=== PATIENT | male | born 1970 | race Hispanic/Latino ===

== ENCOUNTER 2019-05-17 04:08 | Inpatient (IN) | payer MEDICAID, SELFPAY ==
[2019-05-17] MEDS ORDERED: Propofol 1,000 MG/100 ML VIAL IV ONE (04:20)
[2019-05-17] MEDS ORDERED: Adacel (T-DAP) 0.5 ML SYRINGE ONE (04:28)
[2019-05-17 04:39] LABS: Hemoglobin 13.3 g/dL (14.0-18.0); Mean Corpuscular HGB CONC 33.8 g/dL (32.0-36.0); Mean Corpuscular Volume 94.5 fL (78.0-98.0); Mean Platelet Volume 9.1 fL (7.4-10.4); Platelet Count 255 thou/uL (130-400); RBC Distribution Width 12.3 % (11.5-14.5); Red Blood Cell (RBC) Count 4.16 mill/uL (4.70-6.10); White Blood Cell (WBC) Count 22.9 thou/uL (4.8-10.8)
[2019-05-17 04:44] LABS: INR-International Normal Ratio 1.2; Prothrombin Time 15.1 SEC (12.0-14.7)
[2019-05-17 04:45] LABS: PTT 38.6 SEC (22.9-36.1)
[2019-05-17] MEDS ORDERED: Dextrose 5% in Water 1,000 ML IV PRN (04:46)
[2019-05-17] MEDS ORDERED: Ondansetron PF 4 MG/2 ML Vial IVP PRN (04:46)
[2019-05-17] MEDS ORDERED: Dextrose 50% Abboject 50 ML SYRINGE SLOW IVP PRN (04:46)
[2019-05-17 05:01] LABS: ALT (SGPT) 134 U/L (8-55); AST (SGOT) 139 U/L (5-34); Albumin 3.4 g/dL (3.5-5.0); Alcohol 221 mg/dL (Less than 10); Alkaline Phosphatase 84 U/L (40-110); Anion Gap 15 mmol/L (10-20); BUN (Urea Nitrogen) 10 mg/dL (8.9-20.6); Bilirubin, Total 0.2 mg/dL (0.2-1.2); Calc. Creatinine Clearance 0 mL/min (70-130); Calcium 7.3 mg/dL (7.8-10.44); Carbon Dioxide 19 mmol/L (22-29); Chloride 111 mmol/L (98-107); Estimated GFR-MDRD Greater than 90; Globulin 2.7 g/dL (2.4-3.5); Lipase 158 U/L (8-78); Potassium 3.2 mmol/L (3.5-5.1); Protein, Total 6.1 g/dL (6.0-8.3); Sodium 142 mmol/L (136-145)
[2019-05-17 05:04] LABS: Band 15 % (5-11); Lymphocytes 18 % (21-51); MDiff Complete? YES; Monocytes 4 % (0-10); Myelocyte 1 % (0-0); Neutrophil 57 % (42-75); Platelet Clumps SLIGHT; Platelet Morphology Comment Appears Adequate; Reactive Lymphocytes 5 % (0-10)
[2019-05-17 05:09] LABS: Glucose 190 mg/dL (70-105)
[2019-05-17 05:38] LABS: Bacteria/HPF 1+ HPF (None Seen); Bilirubin Negative (Negative); Blood, Urine 3+ (Negative); Clarity Clear (Clear); Glucose, Urine (Dipstick) Normal (Negative); Leukocyte Negative Leu/uL (Negative); Nitrite Negative (Negative); Protein, Urine (Dipstick) 100 mg/dL (Neg-Trace); Squamous Epithelial None Seen HPF (0-3); Urobilinogen Normal mg/dL (Less than 2)
[2019-05-17 05:43] LABS: Actual Bicarbonate (HCO3a) 15.6 mEq/L (22-28); Analyzer IN Cardio ER; Base Excess (BEa) -11.2 mEq/L (-2.0 to +3.0); CO2 Tension 38.4 mmHg (35.0-45.0); Calcium, Ionized 1.09 mmol/L (1.12-1.30); Carboxyhemoglobin (COHb) 1.6 gm% (0.0-3.0); Hemoglobin (Hb) 13.8 g/dL (14.0-18.0); O2 Tension (PaO2) 80.1 mmHg (80.0-100.0)
[2019-05-17 05:44] LABS: pH, Arterial 7.23 (7.35-7.45)
[2019-05-17 05:45] LABS: Puncture Site RRA
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
[2019-05-17 07:51] LABS: Band 34 % (5-11); Hemoglobin 13.3 g/dL (14.0-18.0); Large Platelets SLIGHT; Lymphocytes 20 % (21-51); MDiff Complete? YES; Mean Corpuscular HGB CONC 34.9 g/dL (32.0-36.0); Mean Corpuscular Hemoglobin 32.7 pg (27.0-31.0); Mean Corpuscular Volume 93.8 fL (78.0-98.0); Mean Platelet Volume 9.8 fL (7.4-10.4); Monocytes 1 % (0-10); Neutrophil 45 % (42-75); Platelet Count 182 thou/uL (130-400); Platelet Morphology Comment Appears Adequate; RBC Distribution Width 12.8 % (11.5-14.5); Red Blood Cell (RBC) Count 4.08 mill/uL (4.70-6.10); White Blood Cell (WBC) Count 18.5 thou/uL (4.8-10.8)
[2019-05-17] MEDS ORDERED: Fentanyl BOLUS 250 ML IVPB PRN (07:54)
[2019-05-17] MEDS ORDERED: Morphine 2 MG/ML SYRINGE SLOW IVP PRN (07:54)
[2019-05-17] MEDS ORDERED: Propofol BOLUS 1,000 MG/100 ML VIAL IV PRN (07:54)
[2019-05-17] MEDS ORDERED: Lorazepam 2 MG/ML VIAL SLOW IVP PRN (07:54)
[2019-05-17 07:57] LABS: Anion Gap 16 mmol/L (10-20); BUN (Urea Nitrogen) 10 mg/dL (8.9-20.6); CK (CPK) 3127 U/L (30-200); Calc. Creatinine Clearance 0 mL/min (70-130); Calcium 7.2 mg/dL (7.8-10.44); Carbon Dioxide 17 mmol/L (22-29); Chloride 115 mmol/L (98-107); Estimated GFR-MDRD Greater than 90; Magnesium 1.7 mg/dL (1.6-2.6); Phosphorus 2.1 mg/dL (2.3-4.7); Potassium 3.6 mmol/L (3.5-5.1); Sodium 144 mmol/L (136-145)
[2019-05-17] MEDS ORDERED: levETIRAcetam In NaCl (Iso-Os) 1,000 MG in Premix Bag 1 BAG IVPB SCH (08:00)
[2019-05-17] MEDS: Sodium Chloride 0.9% 1,000 ML IV SCH ×2 (08:00→22:37)
[2019-05-17 08:01] LABS: Lactic Acid 5.1 mmol/L (0.5-2.2)
[2019-05-17 08:02] LABS: Glucose 163 mg/dL (70-105)
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
[2019-05-17] MEDS: Famotidine/PF 20 mg/2ml Vial SLOW IVP SCH ×2 (09:09→21:25)
[2019-05-17 09:10] LABS: Actual Bicarbonate (HCO3a) 13.9 mEq/L (22-28); Base Excess (BEa) -10.1 mEq/L (-2.0 to +3.0); CO2 Tension 26.4 mmHg (35.0-45.0); Calcium, Ionized 1.09 mmol/L (1.12-1.30); Carboxyhemoglobin (COHb) 1.2 gm% (0.0-3.0); Hemoglobin (Hb) 13.4 g/dL (14.0-18.0); O2 Tension (PaO2) 111.3 mmHg (80.0-100.0); Potassium - ABG Lab 3.43 mmol/L (3.70-5.30); pH, Arterial 7.34 (7.35-7.45)
[2019-05-17 09:11] LABS: Puncture Site RRA
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
[2019-05-17] MEDS ORDERED: Metoprolol Tartrate 5 MG/5 ML VIAL ONE (09:39)
[2019-05-17] MEDS ORDERED: Ondansetron PF 4 MG/2 ML Vial ONE (09:39)
[2019-05-17] MEDS ORDERED: Rocuronium Bromide 10 MG/ML (10ML VIAL) ONE (09:39)
[2019-05-17] MEDS ORDERED: Dexamethasone 20 MG/5 ML VIAL ONE (09:39)
[2019-05-17] MEDS ORDERED: PHENYLEPHRINE-NS 100 MCG/ML 10 ML SYRINGE ONE (09:39)
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
[2019-05-17] MEDS ORDERED: PROPOFOL 20 ML ONE (11:01)
[2019-05-17] MEDS ORDERED: Succinylcholine Chloride 20 MG/ML 10 ml SYRINGE FS ONE (11:37)
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
[2019-05-17] MEDS ORDERED: Iopamidol-370 76% 500 ML 1 ML ONE (11:45)
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
[2019-05-17] MEDS ORDERED: Acetaminophen 650 MG/20.3 ML UDCUP PER TUBE PRN (12:36)
[2019-05-17] MEDS ORDERED: Acetaminophen 650 MG Suppository PR PRN (12:37)
[2019-05-17] MEDS ORDERED: CEFAZOLIN 2 GM in Premix Bag 1 BAG IVPB SCH (13:30)
[2019-05-17] MEDS ORDERED: Calcium Chloride 1 GM/10 ML Abboject SYRINGE IVP SCH (13:30)
[2019-05-17 13:38] LABS: Hemoglobin 13.3 g/dL (14.0-18.0); Mean Corpuscular HGB CONC 35.6 g/dL (32.0-36.0); Mean Corpuscular Hemoglobin 33.1 pg (27.0-31.0); Mean Corpuscular Volume 93.1 fL (78.0-98.0); Mean Platelet Volume 7.3 fL (7.4-10.4); Platelet Count 250 thou/uL (130-400); RBC Distribution Width 12.8 % (11.5-14.5); White Blood Cell (WBC) Count 15.6 thou/uL (4.8-10.8)
[2019-05-17 13:56] LABS: Band 42 % (5-11); Lymphocytes 9 % (21-51); MDiff Complete? YES; Monocytes 7 % (0-10); Neutrophil 42 % (42-75); Platelet Morphology Comment Appears Adequate; RBC Morphology Normal; Vacuoles SLIGHT
[2019-05-17 14:01] LABS: Anion Gap 18 mmol/L (10-20); BUN (Urea Nitrogen) 12 mg/dL (8.9-20.6); Calc. Creatinine Clearance 125 mL/min (70-130); Calcium 7.6 mg/dL (7.8-10.44); Carbon Dioxide 16 mmol/L (22-29); Chloride 115 mmol/L (98-107); Estimated GFR-MDRD Greater than 90; Glucose 131 mg/dL (70-105); Sodium 145 mmol/L (136-145)
[2019-05-17 14:06] LABS: Phosphorus 2.6 mg/dL (2.3-4.7)
[2019-05-17] MEDS ORDERED: Lactated Ringer's 1,000 ML IV SCH ×2 (14:15→19:30)
[2019-05-17] MEDS ORDERED: Magnesium 2 GM/50 ML 2 GM in Premix Bag 1 BAG IVPB SCH (14:15)
[2019-05-17 14:31] LABS: CK (CPK) 9682 U/L (30-200)
[2019-05-17] MEDS ORDERED: Phenylephrine 10 MG/ML VIAL ONE (14:48)
[2019-05-17 15:45] LABS: Amphetamine Not Detected (NotDetected); Barbiturates Screen Not Detected (NotDetected); Benzodiazepine Screen Not Detected (NotDetected); Cocaine Metabolite Screen Not Detected (NotDetected); Medtox Control Line Valid? VALID (VALID); Medtox Reader # READER 4; Methadone Not Detected (NotDetected); Methamphetamine Not Detected (NotDetected); Opiate Screen Not Detected (NotDetected); Oxycodone Screen Not Detected (NotDetected); Phencyclidine (PCP) Not Detected (NotDetected); THC/Cannabinoid Screen Not Detected (NotDetected); Tricyclic Screen Not Detected (NotDetected)
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
[2019-05-17] MEDS ORDERED: Rocuronium Bromide 50 MG/5 ML VIAL ONE ×2 (16:57→18:43)
[2019-05-17] MEDS ORDERED: HYDROmorphone 2 MG/ML VIAL ONE (18:39)
[2019-05-17] MEDS ORDERED: CEFAZOLIN 1 GM VIAL ONE (18:42)
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
[2019-05-17] MEDS: Lactated Ringer's 1,000 ML IV SCH (20:35)
[2019-05-17 21:11] LABS: Mean Corpuscular Volume 95.1 fL (78.0-98.0)
[2019-05-17 21:19] LABS: Band 40 % (5-11); Hemoglobin 9.3 g/dL (14.0-18.0); Lymphocytes 7 % (21-51); MDiff Complete? YES; Mean Corpuscular HGB CONC 33.8 g/dL (32.0-36.0); Mean Corpuscular Hemoglobin 32.1 pg (27.0-31.0); Monocytes 5 % (0-10); Neutrophil 48 % (42-75); Platelet Count 184 thou/uL (130-400); RBC Distribution Width 12.7 % (11.5-14.5); White Blood Cell (WBC) Count 13.4 thou/uL (4.8-10.8)
[2019-05-17 21:22] LABS: Lactic Acid 3.1 mmol/L (0.5-2.2)
--- NOTE | 2019-05-17 21:56 | RAD ---
Exam: Chest one view HISTORY:Evaluate endotracheal tube Comparison: 05/17/2019 FINDINGS: Lines and tubes: Endotracheal tube at the level of the clavicle. Nasogastric tube terminates in the l eft upper quadrant. Stable left-sided subclavian vascular catheter. Cardiac silhouette: Normal Aorta: Unremarkable Pulmonary vessels: Normal Costophrenic angles: Clear LUNGS: Persistent patchy opacities in the lung parenchyma. Possible focal infiltrate in the right low er lobe. Pneumothorax: None Osseous abnormalities: None IMPRESSION: 1. Possible focal infiltrate in the right lower lobe. 2. Endotracheal tube at the level the clavicles.
[2019-05-17 21:59] LABS: Chloride 115 mmol/L (98-107); Potassium 5.1 mmol/L (3.5-5.1)
[2019-05-17 22:00] LABS: Sodium 146 mmol/L (136-145)
[2019-05-17 22:01] LABS: Calcium 6.8 mg/dL (7.8-10.44); Glucose 157 mg/dL (70-105)
[2019-05-17 22:02] LABS: Anion Gap 15 mmol/L (10-20); Carbon Dioxide 21 mmol/L (22-29)
[2019-05-17 22:04] LABS: Calc. Creatinine Clearance 98 mL/min (70-130); Estimated GFR-MDRD 77
[2019-05-17 22:05] LABS: BUN (Urea Nitrogen) 16 mg/dL (8.9-20.6)
[2019-05-17 22:06] LABS: Magnesium 1.6 mg/dL (1.6-2.6)
[2019-05-17 22:07] LABS: CK (CPK) 9365 U/L (30-200); Phosphorus 4.9 mg/dL (2.3-4.7)
[2019-05-17] MEDS: Ventilator Sedation Protocol 1 EACH FS SCH (22:44)
[2019-05-18] MEDS: Insulin Regular 300 UNITS/3 ML VIAL SC PRN ×3 (00:47→23:07)
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
[2019-05-18] MEDS: CEFAZOLIN 2 GM in Premix Bag 1 BAG IVPB SCH ×4 (01:30→21:11)
[2019-05-18] MEDS: Lactated Ringer's 1,000 ML IV SCH ×4 (01:33→19:29)
[2019-05-18 04:47] LABS: Lactic Acid 4.3 mmol/L (0.5-2.2)
[2019-05-18 04:58] LABS: Anion Gap 13 mmol/L (10-20); BUN (Urea Nitrogen) 14 mg/dL (8.9-20.6); Calc. Creatinine Clearance 117 mL/min (70-130); Calcium 7.9 mg/dL (7.8-10.44); Carbon Dioxide 21 mmol/L (22-29); Chloride 115 mmol/L (98-107); Estimated GFR-MDRD Greater than 90; Glucose 177 mg/dL (70-105); Magnesium 2.2 mg/dL (1.6-2.6); Phosphorus 1.9 mg/dL (2.3-4.7); Sodium 145 mmol/L (136-145)
[2019-05-18 05:17] LABS: CK (CPK) 8961 U/L (30-200)
[2019-05-18 05:21] LABS: Band 37 % (5-11); Hemoglobin 8.9 g/dL (14.0-18.0); Lymphocytes 7 % (21-51); MDiff Complete? YES; Mean Corpuscular HGB CONC 34.1 g/dL (32.0-36.0); Mean Corpuscular Hemoglobin 32.4 pg (27.0-31.0); Mean Corpuscular Volume 94.8 fL (78.0-98.0); Mean Platelet Volume 8.4 fL (7.4-10.4); Monocytes 7 % (0-10); Neutrophil 49 % (42-75); Platelet Count 148 thou/uL (130-400); Platelet Morphology Comment Appears Adequate; RBC Distribution Width 12.8 % (11.5-14.5); Red Blood Cell (RBC) Count 2.75 mill/uL (4.70-6.10)
[2019-05-18] MEDS: hydrALAZINE 20 MG/ML VIAL SLOW IVP PRN (06:37)
[2019-05-18] MEDS ORDERED: Sodium Phosphate 30 MMOL in Sodium Chloride 0.9% 250 ML 250 ML IVPB SCH (07:00)
[2019-05-18] MEDS ORDERED: Rocuronium Bromide 50 MG/5 ML VIAL ONE ×2 (07:30→08:25)
--- NOTE | 2019-05-18 07:50 | RAD ---
PORTABLE SEMIUPRIGHT FRONTAL RADIOGRAPH CHEST: 05/18/2019 HISTORY: Intubated patient. COMPARISON: 05/17/2019 FINDINGS: Stable endotracheal tube, nasogastric tube and left sided vascular catheter. Hazy nonspecific bibasil ar air space disease is noted, slightly worsened. IMPRESSION: 1. Mild interval worsening of hazy nonspecific bibasilar air space disease. 2. Stable lines and tubes. POS: [facility]
[2019-05-18] MEDS ORDERED: Sodium Chloride 0.9% 20 ML ONE (08:23)
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
--- NOTE | 2019-05-18 09:19 | PRG ---
DATE OF SERVICE: 05/18/2019 Mr. Lu underwent a head CT this morning while his pupils remained symmetric and reactive and he continued to localize in the right side. His head CT compared to the head CT and brain MRI yesterday demonstrated fulminant edematous and hemorrhagic expansion of his right temporal lobe and even extension into the inferior middle right frontal gyri with associated subdural hematoma and traumatic subarachnoid hemorrhage. There was 11 mm [id number] midline shift. As such, I opted to be aggressive and recommended a right-sided hemicraniectomy and temporal lobectomy and we proceeded emergently for this. Job ID: [id number]
[2019-05-18] MEDS ORDERED: CEFAZOLIN 1 GM VIAL ONE (09:27)
[2019-05-18] MEDS ORDERED: Rocuronium Bromide 10 MG/ML (10ML VIAL) ONE (09:49)
[2019-05-18] MEDS ORDERED: Vecuronium 10 MG VIAL ONE (09:49)
[2019-05-18] MEDS ORDERED: Esmolol 100 MG/10 ML VIAL ONE (09:49)
[2019-05-18] MEDS ORDERED: Fentanyl 100 MCG/2 ML VIAL ONE ×2 (09:49→15:54)
[2019-05-18] MEDS ORDERED: PROPOFOL 200 MG/20 ML VIAL ONE (09:49)
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
--- NOTE | 2019-05-18 11:07 | RAD ---
EXAM: 2 views of the left forearm HISTORY: Fractures of the left mid radius and ulna COMPARISON: 05/17/2019 FINDINGS: Limited intraoperative fluoroscopic views show the patient is status post plate and screw f ixation of the fractures of the distal third of the diaphyses of the radius and ulna. Better alignment of fractures is seen. No perihardware lucency is present. IMPRESSION: Status post ORIF of radius and ulna fractures.
[2019-05-18] MEDS: Famotidine/PF 20 mg/2ml Vial SLOW IVP SCH ×2 (12:18→20:26)
[2019-05-18] MEDS: Labetalol HCl 100 MG/20 ML VIAL SLOW IVP PRN ×3 (12:27→19:51)
[2019-05-18] MEDS: Ventilator Sedation Protocol 1 EACH FS SCH (13:23)
[2019-05-18 14:09] LABS: Actual Bicarbonate (HCO3a) 20.9 mEq/L (22-28); Base Excess (BEa) -3.1 mEq/L (-2.0 to +3.0); CO2 Tension 33.9 mmHg (35.0-45.0); Calcium, Ionized 1.04 mmol/L (1.12-1.30); Carboxyhemoglobin (COHb) 0.6 gm% (0.0-3.0); Hemoglobin (Hb) 10.9 g/dL (14.0-18.0); Potassium - ABG Lab 4.33 mmol/L (3.70-5.30); pH, Arterial 7.41 (7.35-7.45)
[2019-05-18 14:10] LABS: ALV-art Gradient 208.125 (0-20); Puncture Site ALINE
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
[2019-05-18 14:40] LABS: Anion Gap 13 mmol/L (10-20); BUN (Urea Nitrogen) 14 mg/dL (8.9-20.6); Calc. Creatinine Clearance 129 mL/min (70-130); Calcium 7.7 mg/dL (7.8-10.44); Carbon Dioxide 23 mmol/L (22-29); Chloride 118 mmol/L (98-107); Estimated GFR-MDRD Greater than 90; Glucose 179 mg/dL (70-105); Potassium 4.5 mmol/L (3.5-5.1); Sodium 149 mmol/L (136-145)
[2019-05-18 15:17] LABS: Actual Bicarbonate (HCO3a) 21.7 mEq/L (22-28); Base Excess (BEa) -1.2 mEq/L (-2.0 to +3.0); CO2 Tension 30.3 mmHg (35.0-45.0); Calcium, Ionized 1.04 mmol/L (1.12-1.30); Carboxyhemoglobin (COHb) 0.6 gm% (0.0-3.0); Hemoglobin (Hb) 10.9 g/dL (14.0-18.0); Potassium - ABG Lab 4.16 mmol/L (3.70-5.30); pH, Arterial 7.47 (7.35-7.45)
[2019-05-18 15:18] LABS: Puncture Site ALINE
[2019-05-18 15:19] LABS: ALV-art Gradient 199.625 (0-20)
[2019-05-18] MEDS ORDERED: Fentanyl 100 MCG/2 ML VIAL SLOW IVP SCH (15:45)
[2019-05-18] MEDS ORDERED: Albumin 5% 500 ML ONE (16:01)
[2019-05-18] MEDS ORDERED: Calcium Chloride 1 GM/10 ML Abboject SYRINGE IVP SCH (16:30)
[2019-05-18] MEDS: fentaNYL Citrate/PF 2,000 MCG in Sodium Chloride 0.9% 60 ML IV SCH (17:02)
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
[2019-05-18] MEDS: Propofol 1,000 MG/100 ML VIAL IV PRN (20:18)
[2019-05-18 22:11] LABS: Hemoglobin 8.2 g/dL (14.0-18.0); Mean Corpuscular HGB CONC 35.2 g/dL (32.0-36.0); Mean Corpuscular Hemoglobin 32.4 pg (27.0-31.0); Mean Corpuscular Volume 91.9 fL (78.0-98.0); RBC Distribution Width 14.4 % (11.5-14.5); Red Blood Cell (RBC) Count 2.54 mill/uL (4.70-6.10); White Blood Cell (WBC) Count 8.4 thou/uL (4.8-10.8)
[2019-05-18 22:23] LABS: #Lymphocytes 0.9 thou/uL (1.20-3.40); #Monocytes 0.8 thou/uL (0.11-0.59); #Neutrophils 6.8 thou/uL (1.40-6.50); %Lymphocytes 10.4 % (21.0-51.0); %Monocytes 9.1 % (0.0-10.0); %Neutrophils 80.5 % (42.0-75.0); Mean Platelet Volume 7.6 fL (7.4-10.4); Platelet Count 119 thou/uL (130-400)
[2019-05-18 22:24] LABS: Platelet Morphology Comment Appears Decreased
[2019-05-18 22:35] LABS: Anion Gap 13 mmol/L (10-20); BUN (Urea Nitrogen) 14 mg/dL (8.9-20.6); Calc. Creatinine Clearance 125 mL/min (70-130); Calcium 8.5 mg/dL (7.8-10.44); Carbon Dioxide 24 mmol/L (22-29); Chloride 120 mmol/L (98-107); Estimated GFR-MDRD Greater than 90; Glucose 163 mg/dL (70-105); Magnesium 2.1 mg/dL (1.6-2.6); Phosphorus 2.4 mg/dL (2.3-4.7); Potassium 3.9 mmol/L (3.5-5.1); Sodium 153 mmol/L (136-145)
[2019-05-19] MEDS: Lactated Ringer's 1,000 ML IV SCH ×2 (03:50→17:39)
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
[2019-05-19] MEDS: CEFAZOLIN 2 GM in Premix Bag 1 BAG IVPB SCH ×3 (06:05→21:07)
[2019-05-19 06:44] LABS: #Lymphocytes 1.3 thou/uL (1.20-3.40); %Lymphocytes 13.6 % (21.0-51.0); %Monocytes 11.1 % (0.0-10.0); %Neutrophils 75.2 % (42.0-75.0); Mean Corpuscular HGB CONC 35.2 g/dL (32.0-36.0); Mean Corpuscular Hemoglobin 32.5 pg (27.0-31.0); Mean Corpuscular Volume 92.4 fL (78.0-98.0); Mean Platelet Volume 7.8 fL (7.4-10.4); Platelet Count 116 thou/uL (130-400); RBC Distribution Width 14.4 % (11.5-14.5); Red Blood Cell (RBC) Count 2.46 mill/uL (4.70-6.10); White Blood Cell (WBC) Count 9.3 thou/uL (4.8-10.8)
[2019-05-19 07:04] LABS: Anion Gap 6 mmol/L (10-20); BUN (Urea Nitrogen) 12 mg/dL (8.9-20.6); CK (CPK) 3868 U/L (30-200); Calc. Creatinine Clearance 137 mL/min (70-130); Calcium 8.3 mg/dL (7.8-10.44); Carbon Dioxide 28 mmol/L (22-29); Chloride 121 mmol/L (98-107); Estimated GFR-MDRD Greater than 90; Glucose 158 mg/dL (70-105); Magnesium 2.2 mg/dL (1.6-2.6); Phosphorus 1.6 mg/dL (2.3-4.7); Sodium 151 mmol/L (136-145)
[2019-05-19] MEDS: Ventilator Sedation Protocol 1 EACH FS SCH (07:16)
--- NOTE | 2019-05-19 07:37 | CT ---
CT OF THE BRAIN WITHOUT CONTRAST: Date: 05/19/2019 COMPARISON: 05/18/2019. HISTORY: Status post right hemicraniectomy. TECHNIQUE: Multiple contiguous axial images were obtained in a CT of the brain without contrast. FINDINGS: Postsurgical changes are seen along the right parietal calvarium. The bone has been removed with a cr anioplasty flap covering the open calvarium. There is a contusion in the right parietal and temporal lobe, and a small amount of pneumocephalus. There is less midline shift than the prior examination. T here is a stable small amount of blood in the dependent aspect of the lateral ventricles. No downward herniation is seen. There may be a small amount of blood in the fourth ventricle. IMPRESSION: Postsurgical changes of the right calvarium with less midline shift. POS: C
[2019-05-19 08:15] LABS: Actual Bicarbonate (HCO3a) 25.9 mEq/L (22-28); Base Excess (BEa) 1.5 mEq/L (-2.0 to +3.0); CO2 Tension 39.9 mmHg (35.0-45.0); Calcium, Ionized 1.12 mmol/L (1.12-1.30); Carboxyhemoglobin (COHb) 1.3 gm% (0.0-3.0); Hemoglobin (Hb) 7.7 g/dL (14.0-18.0); O2 Tension (PaO2) 130.6 mmHg (80.0-100.0); Potassium - ABG Lab 3.81 mmol/L (3.70-5.30); pH, Arterial 7.43 (7.35-7.45)
[2019-05-19 08:19] LABS: ALV-art Gradient 104.725 (0-20); Puncture Site ALINE
[2019-05-19] MEDS ORDERED: Sodium Phosphate 30 MMOL in Sodium Chloride 0.9% 250 ML 250 ML IVPB SCH (08:30)
--- NOTE | 2019-05-19 08:59 | PRG ---
DATE OF SERVICE: 05/19/2019 This is Nba Mckeon PA-C dictating a report for Avery Russo MD. Mr. Lu is postoperative day #1, having undergone right-sided decompressive hemicraniectomy for right frontotemporal intraparenchymal hemorrhage with cerebral edema. Review of patient's head CT from today compared to yesterday shows significant improvement in midline shift and significant decrease in effacement of the brain on the right ventricle. He does have improvement in his cerebral edema with stable findings of right frontotemporal hemorrhage. The patient overnight was sedated given that he had some tachycardia and tachypnea postoperatively. Per nursing, he is sedated right now and does not appear to be moving the extremities. However, according to our nursing staff, the patient has been attempting to localize to the ET tube with the right arm. He has had a flicker of movement in the right toes, but no movement on the left. His pupils are roughly 2 mm bilaterally, equal and sluggishly reactive. At this point, blood pressure control will be paramount for the patient. Ideally we would like his systolic blood pressure to be less than 150. We appreciate our Trauma colleagues managing the patient's medical needs and we will continue to follow the patient. Please call with any changes in patient's neurologic status. I should note that the patient's serum osmolality was 310. His sodium now is up to 153, as he was given mannitol preoperatively yesterday. We will continue to monitor this. Please call with any changes in patient's neurologic status. Job ID: [id number]
[2019-05-19] MEDS: Famotidine/PF 20 mg/2ml Vial SLOW IVP SCH ×2 (09:17→20:07)
[2019-05-19] MEDS: Acetaminophen 650 MG/20.3 ML UDCUP PER TUBE SCH ×4 (09:55→20:07)
[2019-05-19] MEDS: Sodium Chloride 0.45% 1,000 ML IV SCH (10:25)
[2019-05-19] MEDS ORDERED: Potassium Phosphate 15 MMOL in Sodium Chloride 0.9% 250 ML 250 ML IVPB SCH ×2 (10:30→22:30)
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
[2019-05-19] MEDS: fentaNYL Citrate/PF 2,000 MCG in Sodium Chloride 0.9% 60 ML IV SCH (12:39)
[2019-05-19 13:08] LABS: Anion Gap 10 mmol/L (10-20); BUN (Urea Nitrogen) 12 mg/dL (8.9-20.6); Calc. Creatinine Clearance 150 mL/min (70-130); Calcium 8.6 mg/dL (7.8-10.44); Carbon Dioxide 26 mmol/L (22-29); Chloride 122 mmol/L (98-107); Estimated GFR-MDRD Greater than 90; Glucose 139 mg/dL (70-105); Sodium 154 mmol/L (136-145)
[2019-05-19] MEDS: Insulin Regular 300 UNITS/3 ML VIAL SC PRN ×2 (20:16→23:51)
[2019-05-19 21:57] LABS: Anion Gap 9 mmol/L (10-20); BUN (Urea Nitrogen) 13 mg/dL (8.9-20.6); Calc. Creatinine Clearance 139 mL/min (70-130); Calcium 8.1 mg/dL (7.8-10.44); Carbon Dioxide 29 mmol/L (22-29); Chloride 123 mmol/L (98-107); Estimated GFR-MDRD Greater than 90; Glucose 181 mg/dL (70-105); Magnesium 2.1 mg/dL (1.6-2.6); Potassium 3.5 mmol/L (3.5-5.1); Sodium 157 mmol/L (136-145)
[2019-05-19 22:06] LABS: Phosphorus 1.6 mg/dL (2.3-4.7)
[2019-05-19 23:21] LABS: Bacteria/HPF None Seen HPF (None Seen); Bilirubin Negative (Negative); Blood, Urine 2+ (Negative); Clarity Clear (Clear); Glucose, Urine (Dipstick) Normal (Negative); Leukocyte Negative Leu/uL (Negative); Nitrite Negative (Negative); Protein, Urine (Dipstick) 30 mg/dL (Neg-Trace); RBC/HPF 0-3 HPF (0-3); Squamous Epithelial 0-3 HPF (0-3); Urobilinogen Normal mg/dL (Less than 2); WBC/HPF 0-3 HPF (0-3)
[2019-05-19] MEDS: cefTRIAXone\\ROCEPHIN 2 GM in Sodium Chloride 0.9% 100 ML IVPB SCH (23:34)
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
[2019-05-20] MEDS: Acetaminophen 650 MG/20.3 ML UDCUP PER TUBE SCH ×6 (01:25→20:19)
[2019-05-20] MEDS: Sodium Chloride 0.45% 1,000 ML IV SCH ×2 (01:26→17:11)
[2019-05-20] MEDS: Insulin Regular 300 UNITS/3 ML VIAL SC PRN ×3 (04:20→23:51)
[2019-05-20] MEDS: CEFAZOLIN 2 GM in Premix Bag 1 BAG IVPB SCH ×2 (05:57→13:51)
[2019-05-20] MEDS: Ventilator Sedation Protocol 1 EACH FS SCH (07:13)
[2019-05-20 07:19] LABS: Hemoglobin 7.2 g/dL (14.0-18.0); Mean Corpuscular HGB CONC 33.7 g/dL (32.0-36.0); Mean Corpuscular Hemoglobin 31.9 pg (27.0-31.0); Mean Corpuscular Volume 94.7 fL (78.0-98.0); Mean Platelet Volume 7.5 fL (7.4-10.4); Platelet Count 151 thou/uL (130-400); RBC Distribution Width 14.2 % (11.5-14.5); Red Blood Cell (RBC) Count 2.26 mill/uL (4.70-6.10); White Blood Cell (WBC) Count 11.1 thou/uL (4.8-10.8)
[2019-05-20 07:42] LABS: Anion Gap 10 mmol/L (10-20); BUN (Urea Nitrogen) 14 mg/dL (8.9-20.6); CK (CPK) 2848 U/L (30-200); Calc. Creatinine Clearance 145 mL/min (70-130); Carbon Dioxide 29 mmol/L (22-29); Chloride 123 mmol/L (98-107); Estimated GFR-MDRD Greater than 90; Glucose 184 mg/dL (70-105); Magnesium 2.1 mg/dL (1.6-2.6); Phosphorus 2.1 mg/dL (2.3-4.7); Potassium 3.8 mmol/L (3.5-5.1); Sodium 158 mmol/L (136-145)
[2019-05-20 07:57] LABS: Band 25 % (5-11); Lymphocytes 9 % (21-51); MDiff Complete? YES; Neutrophil 66 % (42-75); Nucleated RBC 1 % (0); Platelet Morphology Comment Appears Adequate; Polychromasia SLIGHT = 2-3 cells (100X) (0-2/hpf)
[2019-05-20] MEDS: Polyethylene Glycol 3350 17 GM Packet PO SCH (09:05)
[2019-05-20] MEDS: Famotidine/PF 20 mg/2ml Vial SLOW IVP SCH ×2 (09:05→21:37)
[2019-05-20] MEDS: Senokot S 8.6-50 MG TAB PO SCH ×2 (09:05→21:37)
--- NOTE | 2019-05-20 09:26 | PRG ---
DATE OF SERVICE: 05/20/2019 This is Nba Mckeon PA-C dictating a report for Avery Russo MD. POSTOPERATIVE RECHECK: Mr. Lu is postoperative day #2 having undergone right decompressive hemicraniectomy for increased ICP and increased cerebral edema secondary to right frontotemporal intraparenchymal contusion. The patient remains on Keppra. He remains on his ventilator. His pupils are equal, round, and sluggishly reactive at this point. The patient does have spontaneous movement of the right upper extremity, and per nursing staff, will move the right lower extremity to noxious stimulus. There are no movements in the left lower extremity or the right upper extremity. His head wrap was re-dressed since it was slightly tight. ALLISON drain has put out 20 mL overnight. We will keep this in at least 1 more day. The patient's serum osmolality is 326, and his sodium is 157. He has been placed on half-normal saline, although review of his most recent sodium continues to climb at 158. Our trauma colleagues are helping us to manage this. He remains on cefepime and Ancef. His blood pressure has remained stable. Temperature right now is 100.5. We will continue the ALLISON drain and antibiotics. Given that the patient has a stable neurologic exam, we will hold on any type of imaging, but should he change in his neurologic status, we will re-evaluate with a repeat head CT. Please call with any changes in the patient's neurologic status. Job ID: [id number]
[2019-05-20] MEDS ORDERED: Potassium Phosphate 30 MMOL in Sodium Chloride 0.9% 250 ML 250 ML IVPB SCH (09:30)
[2019-05-20] MEDS: fentaNYL Citrate/PF 2,000 MCG in Sodium Chloride 0.9% 60 ML IV SCH (12:01)
[2019-05-20] MEDS: cefTRIAXone\\ROCEPHIN 2 GM in Sodium Chloride 0.9% 100 ML IVPB SCH (12:29)
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
--- NOTE | 2019-05-20 15:13 | RAD ---
RIGHT TIBIA AND FIBULA 2 VIEWS: HISTORY: ORIF right tibia. Six portable fluoroscopic spot images are presented for interpretation. These demonstrate intramedul mayuri ivy placement stabilizing a very comminuted tibial shaft fracture. In addition, there is a disp laced comminuted mid fibular shaft fracture. IMPRESSION: Intramedullary ivy stabilizing a very comminuted tibial shaft fracture with stabilization. Comminute d mid fibula shaft fracture. POS: LIBERTAD
[2019-05-20 16:44] LABS: Base Excess (BEa) 2.4 mEq/L (-2.0 to +3.0); CO2 Tension 35.7 mmHg (35.0-45.0); Calcium, Ionized 1.08 mmol/L (1.12-1.30); Carboxyhemoglobin (COHb) 0.2 gm% (0.0-3.0); Hemoglobin (Hb) 7.4 g/dL (14.0-18.0); O2 Tension (PaO2) 111.8 mmHg (80.0-100.0); Potassium - ABG Lab 3.72 mmol/L (3.70-5.30); pH, Arterial 7.48 (7.35-7.45)
[2019-05-20 16:46] LABS: ALV-art Gradient 128.775 (0-20); Puncture Site ALINE
[2019-05-21] MEDS: Acetaminophen 650 MG/20.3 ML UDCUP PER TUBE SCH ×6 (00:26→20:43)
[2019-05-21] MEDS: cefTRIAXone\\ROCEPHIN 2 GM in Sodium Chloride 0.9% 100 ML IVPB SCH (00:26)
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
[2019-05-21 04:31] LABS: #Lymphocytes 1.8 thou/uL (1.20-3.40); #Neutrophils 9.7 thou/uL (1.40-6.50); %Basophils 0.2 % (0.0-1.0); %Eosinophils 0.2 % (0.0-10.0); %Lymphocytes 14.3 % (21.0-51.0); %Monocytes 7.6 % (0.0-10.0); %Neutrophils 77.7 % (42.0-75.0); Hemoglobin 7.3 g/dL (14.0-18.0); Mean Corpuscular HGB CONC 33.5 g/dL (32.0-36.0); Mean Corpuscular Volume 95.5 fL (78.0-98.0); Mean Platelet Volume 8.2 fL (7.4-10.4); Platelet Count 179 thou/uL (130-400); RBC Distribution Width 14.3 % (11.5-14.5); Red Blood Cell (RBC) Count 2.27 mill/uL (4.70-6.10); White Blood Cell (WBC) Count 12.5 thou/uL (4.8-10.8)
[2019-05-21 04:52] LABS: Anion Gap 10 mmol/L (10-20); BUN (Urea Nitrogen) 17 mg/dL (8.9-20.6); Calc. Creatinine Clearance 145 mL/min (70-130); Calcium 8.3 mg/dL (7.8-10.44); Carbon Dioxide 30 mmol/L (22-29); Chloride 123 mmol/L (98-107); Estimated GFR-MDRD Greater than 90; Glucose 159 mg/dL (70-105); Magnesium 2.4 mg/dL (1.6-2.6); Potassium 3.7 mmol/L (3.5-5.1); Sodium 159 mmol/L (136-145)
[2019-05-21] MEDS: Insulin Regular 300 UNITS/3 ML VIAL SC PRN ×3 (06:16→17:53)
[2019-05-21 07:29] LABS: Actual Bicarbonate (HCO3a) 28.1 mEq/L (22-28); Base Excess (BEa) 4.4 mEq/L (-2.0 to +3.0); CO2 Tension 37.5 mmHg (35.0-45.0); Calcium, Ionized 1.11 mmol/L (1.12-1.30); Carboxyhemoglobin (COHb) 1.3 gm% (0.0-3.0); Hemoglobin (Hb) 7.4 g/dL (14.0-18.0); O2 Tension (PaO2) 129.2 mmHg (80.0-100.0); Potassium - ABG Lab 3.68 mmol/L (3.70-5.30); pH, Arterial 7.49 (7.35-7.45)
[2019-05-21 07:41] LABS: ALV-art Gradient 109.125 (0-20); Puncture Site ALINE
[2019-05-21] MEDS: Ventilator Sedation Protocol 1 EACH FS SCH (07:59)
[2019-05-21] MEDS ORDERED: Piperacillin/Tazobactam 4.5 GM in Sodium Chloride 0.9% 100 ML IVPB SCH (09:00)
[2019-05-21] MEDS: Piperacillin/Tazobactam 4.5 GM in Dextrose 5% in Water 100 ML IVPB SCH ×4 (09:30→20:43)
[2019-05-21] MEDS: Polyethylene Glycol 3350 17 GM Packet PO SCH (09:31)
[2019-05-21] MEDS: Famotidine/PF 20 mg/2ml Vial SLOW IVP SCH ×2 (09:31→20:44)
[2019-05-21] MEDS: Senokot S 8.6-50 MG TAB PO SCH ×2 (09:33→20:43)
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
[2019-05-21] MEDS ORDERED: Ibuprofen 600 MG TAB PO PRN (11:48)
[2019-05-21] MEDS: Ibuprofen 100 MG/5 ML UDCUP PO PRN ×2 (12:27→22:57)
[2019-05-21] MEDS: fentaNYL Citrate/PF 2,000 MCG in Sodium Chloride 0.9% 60 ML IV SCH (12:43)
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
[2019-05-21] MEDS ORDERED: Lidocaine 1% (PF) 30 ML VIAL ONE (14:56)
[2019-05-21] MEDS ORDERED: Lidocaine 1% (PF) 30 ML VIAL SC SCH (15:00)
[2019-05-21] MEDS: Sodium Chloride 0.45% 1,000 ML IV SCH (17:02)
--- NOTE | 2019-05-21 17:39 | PRG ---
DATE OF SERVICE: 05/21/2019 Mr. Lu is now postoperative day #3 from right-sided frontotemporal craniectomy and temporal lobectomy. We will get a head CT in the morning, although he neurologically continues to localize briskly in the right side with minimal movement on the left side. His pupils are symmetric, round, and reactive. He has had about 200 mL of more serous than serosanguineous output out of his ALLISON drain. We will likely pull this in the morning. He is hypernatremic at 159 while his urine output does not speak to diabetes insipidus. He certainly is hypernatremic and our Trauma colleagues are managing this with DDAVP and hypotonic fluids. He also has a significant aspiration pneumonia. We will continue to follow along. Job ID: [id number]
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
[2019-05-22] MEDS: Acetaminophen 650 MG/20.3 ML UDCUP PER TUBE SCH ×7 (00:45→23:37)
[2019-05-22] MEDS: Insulin Regular 300 UNITS/3 ML VIAL SC PRN ×3 (00:46→22:28)
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
[2019-05-22] MEDS: Piperacillin/Tazobactam 4.5 GM in Dextrose 5% in Water 100 ML IVPB SCH ×4 (03:18→20:44)
[2019-05-22 05:48] LABS: Anion Gap 10 mmol/L (10-20); BUN (Urea Nitrogen) 21 mg/dL (8.9-20.6); Calc. Creatinine Clearance 137 mL/min (70-130); Calcium 8.2 mg/dL (7.8-10.44); Carbon Dioxide 28 mmol/L (22-29); Chloride 123 mmol/L (98-107); Estimated GFR-MDRD Greater than 90; Glucose 187 mg/dL (70-105); Magnesium 2.4 mg/dL (1.6-2.6); Potassium 3.7 mmol/L (3.5-5.1); Sodium 157 mmol/L (136-145)
[2019-05-22 06:11] LABS: Hemoglobin 7.1 g/dL (14.0-18.0); Mean Corpuscular HGB CONC 33.3 g/dL (32.0-36.0); Mean Corpuscular Volume 96.1 fL (78.0-98.0); Mean Platelet Volume 7.5 fL (7.4-10.4); Platelet Count 241 thou/uL (130-400); RBC Distribution Width 14.2 % (11.5-14.5); Red Blood Cell (RBC) Count 2.22 mill/uL (4.70-6.10); White Blood Cell (WBC) Count 13.9 thou/uL (4.8-10.8)
[2019-05-22 06:46] LABS: Band 21 % (5-11); Lymphocytes 16 % (21-51); MDiff Complete? YES; Monocytes 4 % (0-10); Neutrophil 59 % (42-75); Nucleated RBC 3 % (0)
[2019-05-22 07:29] LABS: Actual Bicarbonate (HCO3a) 25.9 mEq/L (22-28); Base Excess (BEa) 2.1 mEq/L (-2.0 to +3.0); CO2 Tension 36.3 mmHg (35.0-45.0); Calcium, Ionized 1.12 mmol/L (1.12-1.30); Carboxyhemoglobin (COHb) 2.3 gm% (0.0-3.0); Hemoglobin (Hb) 7.1 g/dL (14.0-18.0); O2 Tension (PaO2) 96.8 mmHg (80.0-100.0); Potassium - ABG Lab 3.71 mmol/L (3.70-5.30); pH, Arterial 7.47 (7.35-7.45)
[2019-05-22 07:30] LABS: ALV-art Gradient 71.725 (0-20); Puncture Site RRA
[2019-05-22] MEDS: Ventilator Sedation Protocol 1 EACH FS SCH (07:36)
--- NOTE | 2019-05-22 07:48 | RAD ---
Portable frontal chest radiograph: 05/22/2019 COMPARISON: 05/21/2019 HISTORY: Respiratory failure FINDINGS: Stable endotracheal tube, nasogastric tube, left-sided vascular catheter, and left-sided ch est tube in. Right lung appears clear. There is patchy opacity in the left lung base with medial left basilar consolidation. Aeration in the left base has improved since the prior examination. IMPRESSION: Lines and tubes as detailed above. Improving aeration within the left lung with persisten t interstitial and alveolar opacity within the left base.
--- NOTE | 2019-05-22 07:56 | CT ---
CT BRAIN WITHOUT CONTRAST: Date: 05/22/2019 INDICATION: 49-year-old male status post right hemicraniectomy. COMPARISON: 05/19/2019 at 0545 hours and at 0505 hours. FINDINGS: The prominent hemorrhagic contusions involving the right frontal and right temporal lobe are relative ly stable in size when accounting for slight differences in slice angulation. Right frontal, parietal , and temporal craniectomy with overlying cranial flap is stable appearing. Surgical drain involving the right frontoparietal scalp is similar appearing. Herniated brain contents from the craniotomy sit e appear slightly more accentuated than on the prior examination. Scattered areas of intraparenchymal contusion involving the right parietal, lateral right frontal, and inferior aspect of both frontal l obes are similar appearing. Nondisplaced right-sided skull base fracture entering into the right temp oral region, throught the right foramen ovale, and sphenoid sinus is similar appearing. The opacifica tion of the sphenoid sinus has progressed and now near complete. There is near complete opacification of the ethmoid air cells. There is mucosal thickening involving the maxillary sinuses. Air fluid lev els within the right mastoid air cells persist. The midline shift is relatively stable measuring 2.3 mm, where it previously measured 2.6 mm. Small amount of subdural hematoma along the parafalcine yaquelin on is similar appearing. Small amount of pneumocephalus involving the anterior right middle cranial f zora has mildly improved. There is mild improvement of the subcutaneous emphysema overlying the crani ectomy site. IMPRESSION: 1. Persistent largely stable intraparenchymal contusions involving the right frontal and right tempo ral lobe. The patient is status post right frontal, parietal, and temporal craniectomy. The degree of cerebral herniation from the craniectomy site appears slightly more pronounced than on the prior exa mination. The midline shift, however, is stable appearing. 2. Stable areas of scattered intraparenchymal contusion involving the right frontoparietal lobe, as well as the inferior aspects of both frontal lobes. 3. Stable parafalcine subdural hematoma. 4. Stable right skull base fracture. 5. Worsening opacification of the ethmoid and sphenoid air cells. 6. Persistent partial effusion of the right mastoid air cells. Findings discussed with THIEN Rowe for neurosurgery, at 0535 hours on 05/22/2019. CODE CR. POS: BH
[2019-05-22] MEDS ORDERED: Dextrose 5% in Water 1,000 ML IV SCH (09:00)
[2019-05-22] MEDS: Famotidine/PF 20 mg/2ml Vial SLOW IVP SCH ×2 (09:23→20:43)
[2019-05-22] MEDS: Senokot S 8.6-50 MG TAB PO SCH ×2 (09:23→20:44)
[2019-05-22] MEDS: Polyethylene Glycol 3350 17 GM Packet PO SCH (09:23)
[2019-05-22] MEDS: Bisacodyl 10 MG SUPP PR SCH (09:24)
--- NOTE | 2019-05-22 09:27 | PRG ---
DATE OF SERVICE: 05/22/2019 Mr. Lu is postoperative day number #4 after undergoing right-sided frontotemporal craniectomy and temporal lobectomy. His repeat head CT this morning showed progression of extra-axial herniation through the craniectomy site. However, the right frontoparietal intraparenchymal hemorrhage appears to remain stable in size and there is no change in the degree of midline shift. No hydrocephalus. On exam, the patient is spontaneously moves and localizes with right arm, with minimal movement on the left. Per nursing report, the patient withdraws to pain in the left arm with movement of the arm. Right frontotemporal scalp flap is full but not tense. The right pupil is slightly dilated compared to the left. Pupils are round and sluggishly reactive to light. We have continued to monitor drain output and plan to leave the ALLISON drain in place at this time. He continues to have serosanguineous output of the ALLISON drain. Trauma colleagues are managing diabetes insipidus with DDAVP. His bronchial washing has returned with Haemophilus influenzae. We will continue to monitor the patient neurologically. Please call with any changes in neurologic status or other concerns. Job ID: [id number] [facility]
[2019-05-22] MEDS: fentaNYL Citrate/PF 2,000 MCG in Sodium Chloride 0.9% 60 ML IV SCH (09:30)
[2019-05-22] MEDS: Dextrose 5% in Water 1,000 ML IV SCH ×3 (10:30→21:13)
[2019-05-22] MEDS ORDERED: Lidocaine 1% w/Epinephrine 1:100K 20 ML VIAL FS PRN (10:35)
[2019-05-22] MEDS ORDERED: Vecuronium 10 MG VIAL IV PRN (10:36)
[2019-05-22] MEDS ORDERED: Midazolam HCl 2 mg/2 ml Vial SLOW IVP PRN (10:36)
[2019-05-22] MEDS ORDERED: Midazolam HCl 5 mg/ml Vial SLOW IVP PRN (10:37)
[2019-05-22] MEDS ORDERED: Fentanyl 100 MCG/2 ML VIAL SLOW IVP PRN ×2 (10:37→10:38)
--- NOTE | 2019-05-22 12:05 | PRG ---
DATE OF SERVICE: 05/22/2019 Mr. Lu is now postoperative day 4 from right-sided frontotemporal decompression and removal of bone flap with temporal lobectomy. Head CT satisfactory. This morning, he has developed more cerebral edema in the frontal lobes related to his head injury. His ALLISON drain has put out 170 mL overnight. We will leave this in place at this time to reduce pressure on the scalp repair. He remains on scheduled DDAVP, treating per Dr. Monte. His sodium is 157, down from 159. His fluid balance is -314 mL for 24-hour period. He is on Zosyn for aspiration pneumonia. We will continue to follow along, perhaps the ALLISON drain can be removed this weekend. Job ID: [id number]
[2019-05-22] MEDS ORDERED: Midazolam HCl 2 mg/2 ml Vial ONE (15:07)
[2019-05-22] MEDS ORDERED: Amantadine HCl 100 mg Capsule PO SCH (15:45)
[2019-05-22] MEDS ORDERED: Midazolam HCl 2 mg/2 ml Vial SLOW IVP SCH (16:15)
--- NOTE | 2019-05-22 16:55 | RAD ---
KUB: 05/22/2019 COMPARISON: None HISTORY: Evaluate Dobbhoff tube FINDINGS: Incompletely imaged left-sided chest tube. There is dense opacity in the left lung base sug gesting partial consolidation/collapse of the left lower lobe. There is a Dobbhoff tube extending into the left upper quadrant, likely terminating in the region of the gastric fundus/body. The Dobbho ff tube should be advanced. IMPRESSION: Dobbhoff tube as detailed above, likely terminating in the region of the gastric body/fun dus.
[2019-05-22] MEDS: Amantadine HCl 100 mg Capsule PO SCH (17:28)
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
[2019-05-23] MEDS: fentaNYL Citrate/PF 2,000 MCG in Sodium Chloride 0.9% 60 ML IV SCH ×2 (01:32→23:19)
[2019-05-23] MEDS: Piperacillin/Tazobactam 4.5 GM in Dextrose 5% in Water 100 ML IVPB SCH ×4 (02:19→20:51)
[2019-05-23] MEDS: Dextrose 5% in Water 1,000 ML IV SCH (02:22)
[2019-05-23] MEDS: Acetaminophen 650 MG/20.3 ML UDCUP PER TUBE SCH ×5 (04:37→20:51)
[2019-05-23] MEDS: Insulin Regular 300 UNITS/3 ML VIAL SC PRN ×2 (04:37→22:46)
[2019-05-23 04:44] LABS: Anion Gap 10 mmol/L (10-20); BUN (Urea Nitrogen) 18 mg/dL (8.9-20.6); Band 20 % (5-11); Calc. Creatinine Clearance 153 mL/min (70-130); Calcium 8.3 mg/dL (7.8-10.44); Carbon Dioxide 27 mmol/L (22-29); Chloride 116 mmol/L (98-107); Eosinophils 4 % (0-10); Estimated GFR-MDRD Greater than 90; Glucose 164 mg/dL (70-105); Hemoglobin 6.9 g/dL (14.0-18.0); Lymphocytes 15 % (21-51); MDiff Complete? YES; Magnesium 2.5 mg/dL (1.6-2.6); Mean Corpuscular HGB CONC 33.3 g/dL (32.0-36.0); Mean Corpuscular Hemoglobin 32.1 pg (27.0-31.0); Mean Corpuscular Volume 96.5 fL (78.0-98.0); Mean Platelet Volume 7.8 fL (7.4-10.4); Monocytes 2 % (0-10); Neutrophil 59 % (42-75); Nucleated RBC 3 % (0); Phosphorus 3.1 mg/dL (2.3-4.7); Platelet Count 295 thou/uL (130-400); Platelet Morphology Comment Appears Adequate; Potassium 3.9 mmol/L (3.5-5.1); Red Blood Cell (RBC) Count 2.14 mill/uL (4.70-6.10); Sodium 149 mmol/L (136-145); White Blood Cell (WBC) Count 13.2 thou/uL (4.8-10.8)
[2019-05-23] MEDS ORDERED: Furosemide 20 MG/2 ML VIAL SLOW IVP SCH (07:30)
[2019-05-23] MEDS ORDERED: Dextrose 5% in Water 1,000 ML IV SCH (07:32)
[2019-05-23] MEDS: Sodium Chloride 0.9% 1,000 ML IV SCH (08:10)
[2019-05-23] MEDS: Ascorbic Acid 500 mg Chewable Tablet PO SCH ×2 (08:11→17:00)
[2019-05-23] MEDS: Ventilator Sedation Protocol 1 EACH FS SCH (08:11)
[2019-05-23] MEDS: Famotidine/PF 20 mg/2ml Vial SLOW IVP SCH ×2 (08:11→20:51)
[2019-05-23] MEDS: Senokot S 8.6-50 MG TAB PO SCH ×2 (08:11→20:52)
[2019-05-23] MEDS: Polyethylene Glycol 3350 17 GM Packet PO SCH (08:11)
[2019-05-23] MEDS: Ferrous Sulfate 325 MG TAB PO SCH ×2 (08:11→17:00)
[2019-05-23] MEDS: Bisacodyl 10 MG SUPP PR SCH (08:12)
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
[2019-05-23] MEDS ORDERED: Oxymetazoline HCl 0.05% (30 ML BOT) NS SCH (09:00)
--- NOTE | 2019-05-23 09:15 | RAD ---
Portable frontal chest radiograph: 05/23/2019 COMPARISON: 05/22/2019 HISTORY: Chest tube, trauma FINDINGS: New tracheostomy tube in place. Dobbhoff tube present, incompletely imaged distally. Stable left-sided chest tube and left vascular catheter. Mild linear density in the medial right lung base noted. Partial consolidation/collapse of the left base noted, unchanged. IMPRESSION: No significant interval change aside from placement of a new tracheostomy tube.
[2019-05-23] MEDS: Amantadine HCl 100 mg Capsule PO SCH (09:35)
[2019-05-23] MEDS ORDERED: Midazolam HCl 2 mg/2 ml Vial ONE (09:59)
[2019-05-23] MEDS ORDERED: Oxymetazoline HCl 0.05% (30 ML BOT) NS PRN (10:00)
[2019-05-23] MEDS ORDERED: Iopamidol 370 76% 50 ML VIAL FS ONE (10:50)
[2019-05-23] MEDS: Ibuprofen 100 MG/5 ML UDCUP PO PRN (11:57)
[2019-05-23] MEDS ORDERED: Lidocaine 1% (PF) 30 ML VIAL ONE (11:58)
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
--- NOTE | 2019-05-23 13:00 | OP ---
DATE OF PROCEDURE: 05/23/2019 PREOPERATIVE DIAGNOSIS: Contraindication to anticoagulation with high risk for deep vein thrombosis. POSTOPERATIVE DIAGNOSIS: Contraindication to anticoagulation with high risk for deep vein thrombosis. PROCEDURE PERFORMED: Permanent inferior vena cava filter placement with a TRAPEASE filter placed infra-renally. ANESTHESIA: 1% lidocaine for local. TOTAL CONTRAST: 5 mL. TOTAL FLUORO TIME: 0.4 minutes. DESCRIPTION OF PROCEDURE: After consent was obtained, the patient was brought to the r&d lab technician. Appropriate monitoring was placed. The patient remained on the ventilator while we were working. Using ultrasound guidance, the right groin was anesthetized with 1% lidocaine. Using ultrasound guidance, percutaneous access to common femoral vein was obtained and using modified Seldinger technique, the cavogram sheath positioned at L2. Hand-injected cavogram was performed. The renal veins were localized by hourglass at the midbody of L1. The infrarenal inferior vena cava measured less than 2.5 cm in maximal diameter. The tip of the TRAPEASE filter was positioned at the midbody of L1. The filter was deployed below the renal veins. Filter seated nicely and sheath was removed. Manual pressure was held for hemostasis. The patient tolerated the procedure well and will be transferred back to the Intensive Care Unit. Job ID: [id number]
[2019-05-23] MEDS: hydrALAZINE 20 MG/ML VIAL SLOW IVP PRN (14:26)
[2019-05-24] MEDS: Acetaminophen 650 MG/20.3 ML UDCUP PER TUBE SCH ×6 (00:16→21:57)
[2019-05-24] MEDS: hydrALAZINE 20 MG/ML VIAL SLOW IVP PRN ×3 (01:52→22:23)
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
[2019-05-24] MEDS: Piperacillin/Tazobactam 4.5 GM in Dextrose 5% in Water 100 ML IVPB SCH ×4 (03:58→21:57)
[2019-05-24] MEDS: Insulin Regular 300 UNITS/3 ML VIAL SC PRN ×3 (03:59→16:16)
[2019-05-24 05:01] LABS: Anion Gap 12 mmol/L (10-20); BUN (Urea Nitrogen) 19 mg/dL (8.9-20.6); Calc. Creatinine Clearance 148 mL/min (70-130); Calcium 8.3 mg/dL (7.8-10.44); Carbon Dioxide 23 mmol/L (22-29); Chloride 117 mmol/L (98-107); Estimated GFR-MDRD Greater than 90; Glucose 172 mg/dL (70-105); Magnesium 2.5 mg/dL (1.6-2.6); Phosphorus 2.6 mg/dL (2.3-4.7); Potassium 3.7 mmol/L (3.5-5.1); Sodium 148 mmol/L (136-145)
[2019-05-24 05:14] LABS: Mean Corpuscular HGB CONC 34.1 g/dL (32.0-36.0); Mean Corpuscular Hemoglobin 31.9 pg (27.0-31.0); Mean Corpuscular Volume 93.4 fL (78.0-98.0); Mean Platelet Volume 9.6 fL (7.4-10.4); Platelet Count 322 thou/uL (130-400); RBC Distribution Width 14.6 % (11.5-14.5); White Blood Cell (WBC) Count 14.3 thou/uL (4.8-10.8)
[2019-05-24 05:33] LABS: Band 9 % (5-11); Crenated RBC SLIGHT = 1-5 cells (100X) (None Seen); Eosinophils 2 % (0-10); Hypochromia SLIGHT = 6-15 cells (100X) (0-5/hpf); Lymphocytes 11 % (21-51); MDiff Complete? YES; Metamyelocyte 1 % (0-0); Monocytes 3 % (0-10); Myelocyte 2 % (0-0); Neutrophil 72 % (42-75); Platelet Morphology Comment Appears Adequate
[2019-05-24 06:59] LABS: INR-International Normal Ratio 1.1; Prothrombin Time 14.6 SEC (12.0-14.7)
[2019-05-24 07:00] LABS: PTT 36.5 SEC (22.9-36.1)
[2019-05-24] MEDS ORDERED: Morphine 4 MG/ML VIAL ONE (08:32)
[2019-05-24] MEDS ORDERED: Morphine 4 MG/ML VIAL SLOW IVP SCH ×2 (08:45→23:15)
[2019-05-24] MEDS: Sodium Chloride 0.9% 1,000 ML IV SCH (09:02)
[2019-05-24] MEDS: Ascorbic Acid 500 mg Chewable Tablet PO SCH ×2 (09:02→16:19)
[2019-05-24] MEDS: Ferrous Sulfate 325 MG TAB PO SCH ×2 (09:02→16:19)
[2019-05-24] MEDS: Famotidine/PF 20 mg/2ml Vial SLOW IVP SCH ×2 (09:02→21:57)
[2019-05-24] MEDS: Amantadine HCl 100 mg Capsule PO SCH (09:03)
[2019-05-24] MEDS: Ventilator Sedation Protocol 1 EACH FS SCH (09:03)
[2019-05-24] MEDS: Bisacodyl 10 MG SUPP PR SCH (09:03)
[2019-05-24] MEDS: Senokot S 8.6-50 MG TAB PO SCH ×2 (09:04→21:57)
[2019-05-24] MEDS: Polyethylene Glycol 3350 17 GM Packet PO SCH (09:04)
--- NOTE | 2019-05-24 09:13 | PRG ---
DATE OF SERVICE: 05/24/2019 SUBJECTIVE: The patient is now 6 days out from his right frontal temporal decompression craniectomy and right temporal lobectomy for acute right frontotemporal contusional injury. His ALLISON drain has been trending down nicely and had only 15 mL out overnight. His ultrasound of the lower extremities was negative yesterday for DVT, and IVC filter was placed. His sodium continues to trend downward and it is 148 today. He does continue to have fever overnight with temperature as high as 101.2. He is currently receiving Zosyn for aspiration pneumonia. OBJECTIVE: On exam this morning, the patient is moving his right side spontaneously. His pupils are equal, sluggish reactivity. His incision is clean, dry, and intact. PLAN: We will go ahead and remove the ALLISON drain today. Continue defer ongoing medical issues to the Trauma Team. We will follow along closely. Job ID: [id number]
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
[2019-05-24 11:15] LABS: Hemoglobin 8.5 g/dL (14.0-18.0)
--- NOTE | 2019-05-24 11:56 | RAD ---
Exam: Chest one view portable: HISTORY: Respiratory insufficiency, follow-up COMPARISON: 05/23/2019 FINDINGS: Tracheostomy tube in place. Dobbhoff tube in place. Left chest tube in place. Probable very small res idual left-sided pneumothorax. Worsening bilateral interstitial and alveolar opacity changes since the prior study concerning for the possibility of edema or bilateral pneumonia. Heart size is within normal limits. IMPRESSION: Interval developing small left-sided pneumothorax. Worsening interstitial and alveolar opacity changes bilaterally.
[2019-05-24] MEDS: fentaNYL Citrate/PF 2,000 MCG in Sodium Chloride 0.9% 60 ML IV SCH ×2 (12:47→23:51)
--- NOTE | 2019-05-24 14:06 | PRG ---
DATE OF SERVICE: 05/24/2019 The patient is seen and examined. I agree with Tiffanie Alcantara's evaluation. The patient is clinically stable. His ALLISON has been removed and he got an IVC filter yesterday. He has fevers and known aspiration pneumonia. His incision is clean and dry and the craniectomy appears to be working for cerebral decompression as anticipated. No specific additional recommendations at this time. Job ID: [id number]
--- NOTE | 2019-05-24 23:10 | RAD ---
Chest one view HISTORY: Pneumothorax. Chest tube. COMPARISON: Earlier exam on the same date. FINDINGS: Very small left pneumothorax is again demonstrated. Likely unchanged from the prior study. Left thoracostomy tube remains in place. Other lines and tubes are unchanged in position. Pulmonary vasculature remains engorged with patchy areas of ill-defined parenchymal infiltrate throug hout each lung similar in appearance to the previous study. IMPRESSION: Small left pneumothorax, bilateral airspace disease, and other findings are stable.
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
[2019-05-25] MEDS: Acetaminophen 650 MG/20.3 ML UDCUP PER TUBE SCH ×6 (01:13→20:50)
[2019-05-25] MEDS: Piperacillin/Tazobactam 4.5 GM in Dextrose 5% in Water 100 ML IVPB SCH ×4 (03:39→22:22)
[2019-05-25] MEDS: Insulin Regular 300 UNITS/3 ML VIAL SC PRN ×3 (03:40→16:50)
[2019-05-25 04:23] LABS: Band 9 % (5-11); Hemoglobin 7.4 g/dL (14.0-18.0); Lymphocytes 3 % (21-51); MDiff Complete? YES; Mean Corpuscular HGB CONC 33.5 g/dL (32.0-36.0); Mean Corpuscular Hemoglobin 30.9 pg (27.0-31.0); Mean Corpuscular Volume 92.4 fL (78.0-98.0); Mean Platelet Volume 8.9 fL (7.4-10.4); Metamyelocyte 1 % (0-0); Monocytes 3 % (0-10); Neutrophil 84 % (42-75); Platelet Count 396 thou/uL (130-400); Platelet Morphology Comment Appears Adequate; RBC Distribution Width 14.9 % (11.5-14.5); RBC Morphology Normal; White Blood Cell (WBC) Count 26.4 thou/uL (4.8-10.8)
[2019-05-25 04:28] LABS: Anion Gap 12 mmol/L (10-20); BUN (Urea Nitrogen) 19 mg/dL (8.9-20.6); Calc. Creatinine Clearance 163 mL/min (70-130); Calcium 8.6 mg/dL (7.8-10.44); Carbon Dioxide 24 mmol/L (22-29); Chloride 117 mmol/L (98-107); Estimated GFR-MDRD Greater than 90; Glucose 221 mg/dL (70-105); Magnesium 2.4 mg/dL (1.6-2.6); Phosphorus 2.6 mg/dL (2.3-4.7); Potassium 3.6 mmol/L (3.5-5.1); Sodium 149 mmol/L (136-145)
[2019-05-25] MEDS: Sodium Chloride 0.9% 1,000 ML IV SCH (08:32)
[2019-05-25] MEDS: Ventilator Sedation Protocol 1 EACH FS SCH (08:32)
[2019-05-25] MEDS: Ferrous Sulfate 325 MG TAB PO SCH ×2 (08:33→16:48)
[2019-05-25] MEDS: Ascorbic Acid 500 mg Chewable Tablet PO SCH ×2 (08:33→16:48)
[2019-05-25] MEDS: Famotidine/PF 20 mg/2ml Vial SLOW IVP SCH ×2 (08:33→20:50)
[2019-05-25] MEDS: Amantadine HCl 100 mg Capsule PO SCH (08:34)
[2019-05-25] MEDS: Bisacodyl 10 MG SUPP PR SCH (08:34)
[2019-05-25] MEDS: Senokot S 8.6-50 MG TAB PO SCH ×2 (08:34→20:50)
[2019-05-25] MEDS: Polyethylene Glycol 3350 17 GM Packet PO SCH (08:34)
--- NOTE | 2019-05-25 08:53 | PRG ---
DATE OF SERVICE: 05/25/2019 The patient is now 7 days out from his right-sided craniectomy. His ALLISON drain was removed yesterday. He continues to run intermittent fever with T-max 99.5 overnight. He also has elevated white blood cell count today at 26,000. He has been treating by the Trauma team for bilateral lobar pneumonia. His sodium today is also elevated at 149. Neurologically, the patient is somewhat improved and more alert this morning. He is moving both the upper extremities with good strength spontaneously and he is seen moving the right lower extremity as well. His incision remains clean, dry, and intact. With regard to his neurologic status, the patient seems somewhat improved and more alert today. We will defer his ongoing medical issues to the trauma team. Job ID: [id number]
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
[2019-05-25] MEDS: fentaNYL Citrate/PF 2,000 MCG in Sodium Chloride 0.9% 60 ML IV SCH ×2 (11:52→22:41)
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
[2019-05-25] MEDS ORDERED: Lidocaine 1% (PF) 30 ML VIAL SC SCH (21:30)
[2019-05-25] MEDS ORDERED: Fentanyl 100 MCG/2 ML VIAL SLOW IVP SCH (21:30)
[2019-05-25] MEDS ORDERED: Vecuronium 10 MG VIAL IVP SCH (21:30)
[2019-05-25] MEDS ORDERED: Midazolam HCl 2 mg/2 ml Vial SLOW IVP SCH (21:30)
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
[2019-05-26] MEDS ORDERED: Lactated Ringer's 1,000 ML IV SCH (00:01)
[2019-05-26] MEDS: Acetaminophen 650 MG/20.3 ML UDCUP PER TUBE SCH ×6 (00:39→21:10)
[2019-05-26] MEDS: Piperacillin/Tazobactam 4.5 GM in Dextrose 5% in Water 100 ML IVPB SCH ×4 (03:06→21:09)
[2019-05-26 04:59] LABS: Band 8 % (5-11); Lymphocytes 4 % (21-51); MDiff Complete? YES; Mean Corpuscular HGB CONC 32.7 g/dL (32.0-36.0); Mean Corpuscular Hemoglobin 30.9 pg (27.0-31.0); Mean Corpuscular Volume 94.3 fL (78.0-98.0); Mean Platelet Volume 8.4 fL (7.4-10.4); Monocytes 2 % (0-10); Neutrophil 86 % (42-75); Nucleated RBC 1 % (0); Platelet Count 447 thou/uL (130-400); Platelet Morphology Comment Appears Increased; RBC Distribution Width 14.8 % (11.5-14.5); Red Blood Cell (RBC) Count 2.93 mill/uL (4.70-6.10); White Blood Cell (WBC) Count 23.7 thou/uL (4.8-10.8)
[2019-05-26 05:03] LABS: Anion Gap 15 mmol/L (10-20); BUN (Urea Nitrogen) 19 mg/dL (8.9-20.6); Calc. Creatinine Clearance 150 mL/min (70-130); Calcium 8.8 mg/dL (7.8-10.44); Carbon Dioxide 26 mmol/L (22-29); Chloride 115 mmol/L (98-107); Estimated GFR-MDRD Greater than 90; Glucose 196 mg/dL (70-105); Magnesium 2.4 mg/dL (1.6-2.6); Phosphorus 2.9 mg/dL (2.3-4.7); Potassium 3.6 mmol/L (3.5-5.1); Sodium 152 mmol/L (136-145)
[2019-05-26] MEDS ORDERED: Vecuronium 10 MG VIAL IVP SCH (06:00)
[2019-05-26] MEDS ORDERED: Lidocaine 1% (PF) 30 ML VIAL SC SCH (06:00)
[2019-05-26] MEDS ORDERED: Fentanyl 100 MCG/2 ML VIAL SLOW IVP SCH ×2 (06:00→10:45)
[2019-05-26] MEDS: Famotidine/PF 20 mg/2ml Vial SLOW IVP SCH ×2 (08:02→21:10)
[2019-05-26] MEDS ORDERED: Sterile Water 10 ML ONE (08:26)
[2019-05-26] MEDS: Dextrose 5% in Water 1,000 ML IV SCH (08:35)
[2019-05-26] MEDS ORDERED: Propofol 1,000 MG/100 ML VIAL IV ONE (08:44)
[2019-05-26] MEDS: Midazolam HCl 2 mg/2 ml Vial SLOW IVP SCH ×3 (08:49→09:02)
[2019-05-26] MEDS ORDERED: Fentanyl 100 MCG/2 ML VIAL ONE (08:56)
--- NOTE | 2019-05-26 09:31 | RAD ---
CHEST 1 VIEW PORTABLE: Date: 05/26/2019 HISTORY: Follow-up chest tube. COMPARISON: 05/24/2019. FINDINGS: Extensive confluent alveolar opacity changes bilaterally. Left chest tube in place with tracheostomy tube and Dobbhoff tubes in place. Overall there appears to be worsening bilateral confluent parenchym al disease. IMPRESSION: Progressive worsening with extensive bilateral confluent alveolar disease throughout almost the entir ety of both lungs with some probable small residual left pleural effusion. No significant pneumothora x. POS: [facility]
[2019-05-26] MEDS: fentaNYL Citrate/PF 2,000 MCG in Sodium Chloride 0.9% 60 ML IV SCH ×2 (10:09→22:40)
[2019-05-26] MEDS: Ferrous Sulfate 325 MG TAB PO SCH ×2 (10:28→18:19)
[2019-05-26] MEDS: Sodium Chloride 0.9% 1,000 ML IV SCH (10:28)
[2019-05-26] MEDS: Ascorbic Acid 500 mg Chewable Tablet PO SCH ×2 (10:28→18:19)
[2019-05-26] MEDS: Polyethylene Glycol 3350 17 GM Packet PO SCH (10:29)
[2019-05-26] MEDS: Senokot S 8.6-50 MG TAB PO SCH ×2 (10:29→21:10)
[2019-05-26] MEDS: Amantadine HCl 100 mg Capsule PO SCH (10:29)
[2019-05-26] MEDS: Ventilator Sedation Protocol 1 EACH FS SCH (10:29)
[2019-05-26] MEDS: Insulin Regular 300 UNITS/3 ML VIAL SC PRN ×2 (11:18→22:13)
--- NOTE | 2019-05-26 12:48 | PRG ---
DATE OF SERVICE: 05/26/2019 Mr. Gunnar Lu is 8 days out from right-sided frontotemporal craniectomy and temporal lobectomy for hemorrhagic contusion of the temporal lobe with neurologic decline associated with midline shift and herniation. His head CTs have been satisfactory. His subgaleal ALLISON drain has now been removed. His flap is full intense, although neurologically he has demonstrated measurable improvement with brisk movement of the right upper and right lower extremity and even starting to move the left upper and left lower extremity. His pupils are equal, round and reactive, 3 mm to 2 mm. He has now undergone tracheostomy and PEG tube placement. The tube feeds will be resumed tomorrow. He is tachypneic and remains on assist-control ventilation. His vitals have largely been stable with occasional periods of low blood pressure without tachycardia. Laboratory assessment reveals still leukocytosis down to 23.7 from 26.4 over the weekend. His hemoglobin has increased from 7.4 to 9.0. He has thrombocytosis at 447 with a neutrophilic shift. He has aspiration pneumonia as well. Of note, his coagulation parameters on Sunday were within normal limits. He is hyperglycemic with known baseline diabetes. His sodium is 152, down from 159 last week. He remains of note on levetiracetam. We will arrange for head CT tomorrow. I should note his wound is healing well without evidence of drainage. This will be a surveillance scan. He does have an IVC filter in place. I would not feel comfortable with anticoagulation at this point. Job ID: [id number]
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
[2019-05-26] MEDS: Furosemide 20 MG/2 ML VIAL SLOW IVP SCH ×2 (14:27→21:10)
[2019-05-26] MEDS: Bisacodyl 10 MG SUPP PR SCH (18:05)
[2019-05-26] MEDS: Ibuprofen 100 MG/5 ML UDCUP PO PRN (18:50)
[2019-05-26] MEDS ORDERED: Ibuprofen 600 MG TAB PO PRN (18:54)
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
[2019-05-27] MEDS: Acetaminophen 650 MG/20.3 ML UDCUP PER TUBE SCH ×7 (00:35→23:57)
[2019-05-27] MEDS: Propofol 1,000 MG/100 ML VIAL IV PRN ×2 (01:11→17:33)
[2019-05-27] MEDS: Piperacillin/Tazobactam 4.5 GM in Dextrose 5% in Water 100 ML IVPB SCH ×4 (03:49→20:11)
[2019-05-27] MEDS: Dextrose 5% in Water 500 ML IV SCH ×2 (03:52→08:37)
[2019-05-27 04:56] LABS: Anion Gap 12 mmol/L (10-20); BUN (Urea Nitrogen) 15 mg/dL (8.9-20.6); Calc. Creatinine Clearance 165 mL/min (70-130); Calcium 8.7 mg/dL (7.8-10.44); Carbon Dioxide 29 mmol/L (22-29); Chloride 108 mmol/L (98-107); Estimated GFR-MDRD Greater than 90; Glucose 155 mg/dL (70-105); Potassium 3.1 mmol/L (3.5-5.1); Sodium 146 mmol/L (136-145)
[2019-05-27 06:01] LABS: #Eosinphils 0.2 thou/uL (0.0-0.7); #Lymphocytes 1.9 thou/uL (1.20-3.40); #Monocytes 0.5 thou/uL (0.11-0.59); #Neutrophils 18.3 thou/uL (1.40-6.50); %Eosinophils 0.8 % (0.0-10.0); %Lymphocytes 9.3 % (21.0-51.0); %Monocytes 2.5 % (0.0-10.0); %Neutrophils 87.4 % (42.0-75.0); Hemoglobin 8.6 g/dL (14.0-18.0); Mean Corpuscular HGB CONC 33.4 g/dL (32.0-36.0); Mean Corpuscular Hemoglobin 31.7 pg (27.0-31.0); Mean Corpuscular Volume 94.9 fL (78.0-98.0); Mean Platelet Volume 9.1 fL (7.4-10.4); Platelet Count 427 thou/uL (130-400); RBC Distribution Width 14.7 % (11.5-14.5); Red Blood Cell (RBC) Count 2.73 mill/uL (4.70-6.10)
[2019-05-27 06:18] LABS: Magnesium 2.2 mg/dL (1.6-2.6); Phosphorus 3.3 mg/dL (2.3-4.7)
[2019-05-27] MEDS ORDERED: Potassium Chloride 40 MEQ in Premix Bag 1 BAG IVPB SCH (06:30)
[2019-05-27] MEDS: Ventilator Sedation Protocol 1 EACH FS SCH (06:37)
[2019-05-27] MEDS: Furosemide 20 MG/2 ML VIAL SLOW IVP SCH (06:40)
[2019-05-27] MEDS: Dextrose 5% in Water 1,000 ML IV SCH (07:14)
[2019-05-27] MEDS: Ascorbic Acid 500 mg Chewable Tablet PO SCH ×2 (07:19→16:40)
[2019-05-27] MEDS: Ferrous Sulfate 325 MG TAB PO SCH ×2 (07:19→16:40)
[2019-05-27] MEDS: Sodium Chloride 0.9% 1,000 ML IV SCH (07:21)
[2019-05-27] MEDS ORDERED: Fentanyl BOLUS 250 ML IVPB PRN (08:03)
[2019-05-27] MEDS ORDERED: fentaNYL Citrate/PF 2,000 MCG in Sodium Chloride 0.9% 60 ML IV SCH (08:15)
[2019-05-27] MEDS: Polyethylene Glycol 3350 17 GM Packet PO SCH (08:21)
[2019-05-27] MEDS: Bisacodyl 10 MG SUPP PR SCH (08:21)
[2019-05-27] MEDS: Senokot S 8.6-50 MG TAB PO SCH ×2 (08:21→21:52)
--- NOTE | 2019-05-27 08:33 | CT ---
PRELIMINARY REPORT/[facility]/EMERGENCY AFTER HOURS PROCEDURE: PROCEDURE: CT Head without Contrast . HISTORY: Follow-up craniectomy. TECHNIQUE: Axial images were performed without the administration of IV contrast with or without mult iplanar reformations . COMPARISON: 05/22/2019. FINDINGS: Improving intraparenchymal hemorrhage involving RIGHT frontal, parietal, and temporal lobes with cont inued extensive edema present and herniation of the brain into the craniectomy site on the RIGHT. Continued small LEFT falcine subdural couple of millimeters thick. Continued small amount of interventricular hemorrhage posterior horns of the lateral ventricles. No hydrocephalus. No significant midline shift. No other acute change identified. IMPRESSION: Improving intraparenchymal hemorrhage RIGHT cerebrum with continued large amount of edema. Continued herniation of the RIGHT cerebrum into the craniectomy site. Unchanged LEFT falcine and interventricular hemorrhage. No hydrocephalus or midline shift. ELECTRONICALLY SIGNED BY: Alo Short MD May 27, 2019 4:35:54 AM [employer]ITION [employer] This report is intended for review by the ordering physician only, in accordance of law. If you recei ve this report in error, please call [facility] at [phone]. FINAL REPORT CT HEAD: Date: 05/27/2019 Time: 0412 hours FINDINGS/IMPRESSION: Increasing edema at the operative site with increased herniation of right cerebrum through the operat anne marie defect. No significant midline shift. I am in agreement with the preliminary report. POS: [facility]
[2019-05-27] MEDS: Famotidine/PF 20 mg/2ml Vial SLOW IVP SCH ×2 (08:37→21:52)
[2019-05-27] MEDS: Amantadine HCl 100 mg Capsule PO SCH (08:42)
--- NOTE | 2019-05-27 08:56 | RAD ---
CHEST 1 VIEW: HISTORY: Followup pneumonia, respiratory insufficiency. FINDINGS: Tracheostomy and left chest tubes remain in place. Again noted are extensive alveolar opacity change s throughout both lungs, although somewhat less dense than on the prior study with slightly improved aeration. No other acute process. IMPRESSION: Extensive bilateral alveolar opacity changes with slightly improved aeration. Continued short-term f ollowup. POS: [facility]
[2019-05-27] MEDS: Hydrochlorothiazide 25 MG TAB PO SCH ×2 (09:17→20:12)
[2019-05-27] MEDS: Metolazone 2.5 MG TAB PO SCH (09:22)
[2019-05-27] MEDS: Insulin Regular 300 UNITS/3 ML VIAL SC PRN ×2 (09:42→22:14)
[2019-05-27] MEDS ORDERED: cloNIDine 0.1 MG TAB PO SCH (10:00)
--- NOTE | 2019-05-27 11:32 | PRG ---
DATE OF SERVICE: 05/27/2019 Mr. Lu is now 9 days out from his frontotemporal craniectomy and temporal lobectomy. His flap on CT continues to demonstrate herniation out of the bone defect. He has surrounding edema in the frontal lobe. His cisterns however remain widely patent. I do not suspect incarceration of his frontal-parietal region here on exam, he has no hydrocephalus. His flap on exam is full and somewhat tense. He does weakly open his left eye to noxious stimuli, and localizes on the right upper and withdraws in the left upper. He has no movement of the left lower extremity and withdraws in the right lower extremity. His GCS is 8T. He is on CPAP for ventilation and he is tachypneic. His wound remains dry. His labs continue to demonstrate leukocytosis and anemia along with thrombocytosis, certainly concerning for aspiration pneumonia. He has a chest tube in place as well and he does have tracheostomy and PEG tube. He will need a long-term acute care facility, it is my understanding he is uninsured. Job ID: [id number]
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
[2019-05-27] MEDS: hydrALAZINE 20 MG/ML VIAL SLOW IVP PRN (14:12)
[2019-05-27] MEDS: cloNIDine 0.3 MG TAB PO SCH ×2 (15:58→21:52)
[2019-05-27] MEDS: fentaNYL Citrate/PF 2,000 MCG in Sodium Chloride 0.9% 60 ML IV SCH (19:45)
[2019-05-27] MEDS: levETIRAcetam 500 mg/5 ml Oral Solution PO SCH (21:52)
[2019-05-28] MEDS: Piperacillin/Tazobactam 4.5 GM in Dextrose 5% in Water 100 ML IVPB SCH ×2 (02:40→09:29)
[2019-05-28] MEDS: Insulin Regular 300 UNITS/3 ML VIAL SC PRN ×3 (03:44→21:31)
[2019-05-28] MEDS: Acetaminophen 650 MG/20.3 ML UDCUP PER TUBE SCH ×5 (03:44→21:30)
[2019-05-28] MEDS: cloNIDine 0.3 MG TAB PO SCH ×4 (03:44→21:29)
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
[2019-05-28] MEDS: hydrALAZINE 20 MG/ML VIAL SLOW IVP PRN (04:20)
[2019-05-28 04:53] LABS: Band 6 % (5-11); Hemoglobin 8.7 g/dL (14.0-18.0); Lymphocytes 9 % (21-51); MDiff Complete? YES; Mean Corpuscular HGB CONC 31.8 g/dL (32.0-36.0); Mean Corpuscular Hemoglobin 29.8 pg (27.0-31.0); Mean Corpuscular Volume 93.5 fL (78.0-98.0); Mean Platelet Volume 8.7 fL (7.4-10.4); Metamyelocyte 1 % (0-0); Monocytes 2 % (0-10); Neutrophil 82 % (42-75); Platelet Count 582 thou/uL (130-400); Platelet Morphology Comment Appears Increased; RBC Distribution Width 14.4 % (11.5-14.5); Red Blood Cell (RBC) Count 2.93 mill/uL (4.70-6.10); White Blood Cell (WBC) Count 16.8 thou/uL (4.8-10.8)
[2019-05-28 05:07] LABS: Anion Gap 10 mmol/L (10-20); BUN (Urea Nitrogen) 17 mg/dL (8.9-20.6); Calc. Creatinine Clearance 153 mL/min (70-130); Calcium 9.1 mg/dL (7.8-10.44); Carbon Dioxide 33 mmol/L (22-29); Chloride 103 mmol/L (98-107); Estimated GFR-MDRD Greater than 90; Glucose 178 mg/dL (70-105); Magnesium 2.2 mg/dL (1.6-2.6); Phosphorus 3.4 mg/dL (2.3-4.7); Sodium 143 mmol/L (136-145)
[2019-05-28 05:16] LABS: Potassium 2.7 mmol/L (3.5-5.1)
[2019-05-28] MEDS ORDERED: Potassium Phosphate 30 MMOL in Sodium Chloride 0.9% 250 ML 250 ML IVPB SCH (06:00)
--- NOTE | 2019-05-28 07:55 | RAD ---
EXAM: CHEST ONE VIEW HISTORY: Left-sided thoracostomy tube. Follow-up evaluation. COMPARISON: 05/27/2019 FINDINGS: Tracheostomy device, left subclavian central venous catheter, and left-sided thoracostomy tube remain in place. Increased interstitial and alveolar opacities are seen throughout the lungs bilaterally. There does appear to be mild improvement in aeration on the left and at the right lung base. No pneum othorax is seen, and no obvious pleural effusion is identified. No other interval change. IMPRESSION: Interstitial and alveolar opacities bilaterally greater in the right upper lobe. There appears to be mild improvement in aeration in the left lung and at the right lung base. Continued follow-up recommended.
[2019-05-28] MEDS ORDERED: Potassium Chloride 20 MEQ TAB PO SCH (08:00)
[2019-05-28] MEDS: Spironolactone 25 MG TAB PO SCH ×2 (08:33→16:44)
[2019-05-28] MEDS: Ferrous Sulfate 325 MG TAB PO SCH ×2 (08:34→16:44)
[2019-05-28] MEDS: Ascorbic Acid 500 mg Chewable Tablet PO SCH ×2 (08:34→16:43)
[2019-05-28] MEDS: Amantadine HCl 100 mg Capsule PO SCH (08:35)
[2019-05-28] MEDS: Famotidine/PF 20 mg/2ml Vial SLOW IVP SCH (08:35)
[2019-05-28] MEDS: levETIRAcetam 500 mg/5 ml Oral Solution PO SCH ×2 (08:36→21:29)
[2019-05-28] MEDS: Polyethylene Glycol 3350 17 GM Packet PO SCH (08:41)
[2019-05-28] MEDS: Senokot S 8.6-50 MG TAB PO SCH ×2 (08:41→21:43)
[2019-05-28] MEDS: Bisacodyl 10 MG SUPP PR SCH (08:41)
[2019-05-28] MEDS: Ventilator Sedation Protocol 1 EACH FS SCH (08:42)
[2019-05-28] MEDS: Sodium Chloride 0.9% 1,000 ML IV SCH (08:47)
[2019-05-28] MEDS: Metolazone 2.5 MG TAB PO SCH (08:48)
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
[2019-05-28 11:30] LABS: Actual Bicarbonate (HCO3a) 30.8 mEq/L (22-28); Base Excess (BEa) 8.2 mEq/L (-2.0 to +3.0); CO2 Tension 35.3 mmHg (35.0-45.0); Carboxyhemoglobin (COHb) 1.2 gm% (0.0-3.0); Hemoglobin (Hb) 11.1 g/dL (14.0-18.0); O2 Tension (PaO2) 96.9 mmHg (80.0-100.0); Potassium - ABG Lab 3.33 mmol/L (3.70-5.30)
[2019-05-28 11:31] LABS: ALV-art Gradient 144.175 (0-20); Puncture Site RR; pH, Arterial 7.56 (7.35-7.45)
[2019-05-28] MEDS: Morphine 4 MG/ML VIAL SLOW IVP PRN ×2 (12:04→22:15)
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
[2019-05-28 16:30] LABS: Phosphorus 3.5 mg/dL (2.3-4.7)
[2019-05-28 16:31] LABS: Anion Gap 12 mmol/L (10-20); BUN (Urea Nitrogen) 19 mg/dL (8.9-20.6); Calc. Creatinine Clearance 143 mL/min (70-130); Carbon Dioxide 30 mmol/L (22-29); Chloride 104 mmol/L (98-107); Estimated GFR-MDRD Greater than 90; Glucose 144 mg/dL (70-105); Magnesium 2.3 mg/dL (1.6-2.6); Potassium 3.6 mmol/L (3.5-5.1); Sodium 142 mmol/L (136-145)
[2019-05-28] MEDS ORDERED: PHOS-NAK 1 PKT PACK PO SCH (17:15)
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
[2019-05-28] MEDS: Famotidine 20 MG TAB PER TUBE SCH (21:29)
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
[2019-05-29] MEDS: Morphine 4 MG/ML VIAL SLOW IVP PRN ×3 (02:36→21:37)
[2019-05-29] MEDS: Acetaminophen 650 MG/20.3 ML UDCUP PER TUBE SCH ×4 (03:59→21:07)
[2019-05-29] MEDS: cloNIDine 0.3 MG TAB PO SCH ×4 (03:59→21:06)
[2019-05-29 04:36] LABS: Anion Gap 14 mmol/L (10-20); BUN (Urea Nitrogen) 20 mg/dL (8.9-20.6); Calc. Creatinine Clearance 154 mL/min (70-130); Calcium 9.3 mg/dL (7.8-10.44); Carbon Dioxide 30 mmol/L (22-29); Chloride 101 mmol/L (98-107); Estimated GFR-MDRD Greater than 90; Glucose 134 mg/dL (70-105); Magnesium 2.3 mg/dL (1.6-2.6); Phosphorus 3.6 mg/dL (2.3-4.7); Potassium 3.7 mmol/L (3.5-5.1); Sodium 141 mmol/L (136-145)
[2019-05-29 04:42] LABS: Band 9 % (5-11); Hemoglobin 9.5 g/dL (14.0-18.0); Lymphocytes 12 % (21-51); MDiff Complete? YES; Mean Corpuscular HGB CONC 31.6 g/dL (32.0-36.0); Mean Corpuscular Hemoglobin 29.6 pg (27.0-31.0); Mean Corpuscular Volume 93.9 fL (78.0-98.0); Mean Platelet Volume 7.8 fL (7.4-10.4); Metamyelocyte 1 % (0-0); Monocytes 3 % (0-10); Neutrophil 75 % (42-75); Platelet Count 696 thou/uL (130-400); Platelet Morphology Comment Appears Increased; RBC Distribution Width 14.1 % (11.5-14.5); Red Blood Cell (RBC) Count 3.22 mill/uL (4.70-6.10); White Blood Cell (WBC) Count 14.4 thou/uL (4.8-10.8)
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
[2019-05-29] MEDS: Ascorbic Acid 500 mg Chewable Tablet PO SCH ×2 (08:21→16:41)
[2019-05-29] MEDS: Ferrous Sulfate 325 MG TAB PO SCH ×2 (08:21→16:41)
[2019-05-29] MEDS: Spironolactone 25 MG TAB PO SCH ×2 (08:21→16:41)
[2019-05-29] MEDS: Ventilator Sedation Protocol 1 EACH FS SCH (08:23)
[2019-05-29] MEDS: Sodium Chloride 0.9% 1,000 ML IV SCH (08:23)
[2019-05-29] MEDS: Polyethylene Glycol 3350 17 GM Packet PO SCH (08:24)
[2019-05-29] MEDS: Amantadine HCl 100 mg Capsule PO SCH (08:24)
[2019-05-29] MEDS: Bisacodyl 10 MG SUPP PR SCH (08:25)
[2019-05-29] MEDS: levETIRAcetam 500 mg/5 ml Oral Solution PO SCH ×2 (08:25→21:07)
[2019-05-29] MEDS: Senokot S 8.6-50 MG TAB PO SCH (08:25)
[2019-05-29] MEDS: Famotidine 20 MG TAB PER TUBE SCH ×2 (08:25→21:06)
[2019-05-29] MEDS: Metolazone 2.5 MG TAB PO SCH (08:32)
--- NOTE | 2019-05-29 09:32 | PRG ---
DATE OF SERVICE: 05/29/2019 Mr. Lu's flap is a bit softer and not as tense. His head CT is essentially stable. He has not developed hydrocephalus associated with ventriculomegaly nor is there evidence of external hydrocephalus. At this point, we will continue to follow him closely though. Radiologically, he is stable. He continues to have pulmonary issues, but thankfully his white count is coming down. He remained to 14, which is down from 26 just four days ago. We are going to continue levetiracetam at this point, given his risk of seizure and I should note he does continue to localize in the right side. Job ID: [id number]
[2019-05-29] MEDS ORDERED: VANCOMYCIN IVPB PRN (09:43)
[2019-05-29] MEDS: Insulin Regular 300 UNITS/3 ML VIAL SC PRN (10:11)
[2019-05-29] MEDS: Vancomycin HCl 1.25 GM in Sodium Chloride 0.9% 250 ML 250 ML IVPB SCH ×2 (10:18→17:30)
[2019-05-29] MEDS ORDERED: Senokot S 8.6-50 MG TAB PO PRN (12:47)
[2019-05-29] MEDS ORDERED: Polyethylene Glycol 3350 17 GM Packet PO PRN (12:47)
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
[2019-05-29] MEDS: Saccharomyces boulardii 250 MG CAP PO SCH (21:06)
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
[2019-05-30] MEDS: Vancomycin HCl 1.25 GM in Sodium Chloride 0.9% 250 ML 250 ML IVPB SCH (01:46)
[2019-05-30] MEDS: Morphine 4 MG/ML VIAL SLOW IVP PRN ×4 (02:53→21:37)
[2019-05-30] MEDS: cloNIDine 0.3 MG TAB PO SCH (03:44)
[2019-05-30] MEDS: Acetaminophen 650 MG/20.3 ML UDCUP PER TUBE SCH ×4 (03:44→21:20)
[2019-05-30] MEDS: Insulin Regular 300 UNITS/3 ML VIAL SC PRN ×2 (03:45→13:12)
[2019-05-30] MEDS: hydrALAZINE 20 MG/ML VIAL SLOW IVP PRN ×2 (04:55→14:31)
[2019-05-30 05:40] LABS: Hemoglobin 10.1 g/dL (14.0-18.0); Mean Corpuscular HGB CONC 33.1 g/dL (32.0-36.0); Mean Corpuscular Hemoglobin 31.1 pg (27.0-31.0); Mean Corpuscular Volume 94.2 fL (78.0-98.0); Mean Platelet Volume 8.1 fL (7.4-10.4); Platelet Count 770 thou/uL (130-400); RBC Distribution Width 14.1 % (11.5-14.5); Red Blood Cell (RBC) Count 3.25 mill/uL (4.70-6.10); White Blood Cell (WBC) Count 13.4 thou/uL (4.8-10.8)
[2019-05-30 06:00] LABS: Anion Gap 15 mmol/L (10-20); BUN (Urea Nitrogen) 21 mg/dL (8.9-20.6); Calc. Creatinine Clearance 143 mL/min (70-130); Calcium 9.6 mg/dL (7.8-10.44); Carbon Dioxide 25 mmol/L (22-29); Chloride 103 mmol/L (98-107); Estimated GFR-MDRD Greater than 90; Glucose 171 mg/dL (70-105); Magnesium 2.2 mg/dL (1.6-2.6); Phosphorus 3.6 mg/dL (2.3-4.7); Potassium 4.2 mmol/L (3.5-5.1); Sodium 139 mmol/L (136-145)
[2019-05-30 06:23] LABS: Band 8 % (5-11); Eosinophils 1 % (0-10); Lymphocytes 3 % (21-51); MDiff Complete? YES; Monocytes 5 % (0-10); Myelocyte 1 % (0-0); Neutrophil 82 % (42-75); Platelet Morphology Comment Appears Increased
--- NOTE | 2019-05-30 08:01 | RAD ---
CHEST 1 VIEW: INDICATION: History of left-sided chest tube evaluation. COMPARISON: Prior exam dated 05/28/2019. FINDINGS: Left-sided chest tube is unchanged. Airspace opacity in the left lower lobe and right lung persist. Tracheostomy tube is unchanged. Heart size is normal. No pneumothorax is demonstrate. Left subcla vian central venous catheter is unchanged. Osseous structures are similar-appearing. IMPRESSION: Stable exam. POS: BH
[2019-05-30 09:22] LABS: Vancomycin, Trough 11.8 ug/mL
[2019-05-30] MEDS ORDERED: [UNRECOGNIZED DRUG - OTHER] IVPB PRN (09:48)
[2019-05-30] MEDS: Spironolactone 25 MG TAB PO SCH ×2 (09:55→16:58)
[2019-05-30] MEDS: Ferrous Sulfate 325 MG TAB PO SCH ×2 (09:55→16:58)
[2019-05-30] MEDS: cloNIDine 0.2 MG TAB PO SCH ×3 (09:55→21:34)
[2019-05-30] MEDS: Famotidine 20 MG TAB PER TUBE SCH ×2 (09:56→21:32)
[2019-05-30] MEDS: Ascorbic Acid 500 mg Chewable Tablet PO SCH ×2 (09:57→16:58)
[2019-05-30] MEDS: Ventilator Sedation Protocol 1 EACH FS SCH (09:57)
[2019-05-30] MEDS: Saccharomyces boulardii 250 MG CAP PO SCH ×2 (09:57→21:33)
[2019-05-30] MEDS: Bisacodyl 10 MG SUPP PR SCH (09:57)
[2019-05-30] MEDS: Sodium Chloride 0.9% 1,000 ML IV SCH (09:57)
[2019-05-30] MEDS: levETIRAcetam 500 mg/5 ml Oral Solution PO SCH ×2 (09:58→21:29)
[2019-05-30] MEDS: Amantadine HCl 100 mg Capsule PO SCH (09:59)
[2019-05-30] MEDS ORDERED: Vancomycin 1.5 GRAM/300 ML BAG 1.5 GM in Premix Bag 1 BAG IVPB SCH ×2 (10:00→12:00)
[2019-05-30] MEDS: Metolazone 2.5 MG TAB PO SCH (10:06)
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
[2019-05-30] MEDS: Acetaminophen/Codeine Oral Solution PO SCH ×2 (12:00→21:08)
[2019-05-30] MEDS ORDERED: Acetaminophen/Codeine Oral Solution PO SCH (18:00)
[2019-05-30] MEDS: Acetaminophen/Codeine 120-12MG/5 ML UDCUP PO SCH (18:22)
[2019-05-30 21:06] LABS: Actual Bicarbonate (HCO3a) 22.8 mEq/L (22-28); Base Excess (BEa) -0.1 mEq/L (-2.0 to +3.0); CO2 Tension 31.4 mmHg (35.0-45.0); Calcium, Ionized 1.19 mmol/L (1.12-1.30); Carboxyhemoglobin (COHb) 0.7 gm% (0.0-3.0); Hemoglobin (Hb) 11.4 g/dL (14.0-18.0); O2 Tension (PaO2) 173.7 mmHg (80.0-100.0); pH, Arterial 7.48 (7.35-7.45)
[2019-05-30 21:07] LABS: Puncture Site RRA
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
[2019-05-31] MEDS: Acetaminophen/Codeine 120-12MG/5 ML UDCUP PO SCH ×4 (00:15→19:12)
[2019-05-31] MEDS: cloNIDine 0.2 MG TAB PO SCH ×4 (03:28→21:01)
[2019-05-31] MEDS: Acetaminophen 650 MG/20.3 ML UDCUP PER TUBE SCH ×4 (03:28→21:03)
[2019-05-31] MEDS: Insulin Regular 300 UNITS/3 ML VIAL SC PRN ×3 (04:12→18:15)
[2019-05-31 04:25] LABS: #Eosinphils 0.1 thou/uL (0.0-0.7); #Lymphocytes 1.3 thou/uL (1.20-3.40); #Monocytes 0.7 thou/uL (0.11-0.59); #Neutrophils 9.7 thou/uL (1.40-6.50); %Basophils 0.3 % (0.0-1.0); %Eosinophils 0.8 % (0.0-10.0); %Lymphocytes 11.2 % (21.0-51.0); %Monocytes 6.1 % (0.0-10.0); %Neutrophils 81.6 % (42.0-75.0); Hemoglobin 10.4 g/dL (14.0-18.0); Mean Corpuscular HGB CONC 33.3 g/dL (32.0-36.0); Mean Corpuscular Hemoglobin 30.9 pg (27.0-31.0); Mean Corpuscular Volume 92.9 fL (78.0-98.0); Mean Platelet Volume 7.5 fL (7.4-10.4); Platelet Count 832 thou/uL (130-400); RBC Distribution Width 14.1 % (11.5-14.5); Red Blood Cell (RBC) Count 3.36 mill/uL (4.70-6.10); White Blood Cell (WBC) Count 11.9 thou/uL (4.8-10.8)
[2019-05-31 04:41] LABS: Anion Gap 14 mmol/L (10-20); BUN (Urea Nitrogen) 30 mg/dL (8.9-20.6); Calc. Creatinine Clearance 128 mL/min (70-130); Calcium 9.3 mg/dL (7.8-10.44); Carbon Dioxide 25 mmol/L (22-29); Chloride 102 mmol/L (98-107); Estimated GFR-MDRD Greater than 90; Glucose 209 mg/dL (70-105); Magnesium 2.4 mg/dL (1.6-2.6); Phosphorus 3.2 mg/dL (2.3-4.7); Sodium 137 mmol/L (136-145)
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
[2019-05-31] MEDS: Ascorbic Acid 500 mg Chewable Tablet PO SCH ×2 (08:57→16:41)
[2019-05-31] MEDS: Ferrous Sulfate 325 MG TAB PO SCH ×2 (08:57→16:42)
[2019-05-31] MEDS: Spironolactone 25 MG TAB PO SCH ×2 (08:57→16:42)
[2019-05-31] MEDS: Sodium Chloride 0.9% 1,000 ML IV SCH (08:58)
[2019-05-31] MEDS: Ventilator Sedation Protocol 1 EACH FS SCH (08:59)
[2019-05-31] MEDS: Famotidine 20 MG TAB PER TUBE SCH ×2 (09:19→21:00)
[2019-05-31] MEDS: Metolazone 2.5 MG TAB PO SCH (09:19)
[2019-05-31] MEDS: Saccharomyces boulardii 250 MG CAP PO SCH ×2 (09:19→21:00)
[2019-05-31] MEDS: levETIRAcetam 500 mg/5 ml Oral Solution PO SCH ×2 (09:20→20:59)
[2019-05-31] MEDS: Amantadine HCl 100 mg Capsule PO SCH (09:20)
[2019-05-31] MEDS: Bisacodyl 10 MG SUPP PR SCH (09:20)
--- NOTE | 2019-05-31 10:04 | RAD ---
CHEST 1 VIEW: Date: 05/31/2019 HISTORY: Chest tube removal. COMPARISON: Radiograph prior day. FINDINGS: Tracheostomy tube is similar. Removal of left thoracostomy tube. No significant pneumothorax apprecia matthew. Small volume opacities in both lower lobes are similar. Central venous catheter tip at mid SVC. IMPRESSION: Uncomplicated left thoracostomy removal without significant pneumothorax remaining. POS: OFF
[2019-05-31] MEDS ORDERED: Metoprolol Tartrate 25 MG TAB PO SCH (12:15)
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
[2019-05-31] MEDS: Metoprolol Tartrate 25 MG TAB PO SCH (21:00)
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
[2019-06-01] MEDS: Acetaminophen 650 MG/20.3 ML UDCUP PER TUBE SCH ×3 (04:12→17:39)
[2019-06-01] MEDS: cloNIDine 0.2 MG TAB PO SCH ×4 (04:12→21:20)
[2019-06-01] MEDS: Insulin Regular 300 UNITS/3 ML VIAL SC PRN ×2 (04:33→22:28)
[2019-06-01 04:52] LABS: #Eosinphils 0.1 thou/uL (0.0-0.7); #Lymphocytes 1.5 thou/uL (1.20-3.40); #Neutrophils 9.7 thou/uL (1.40-6.50); %Basophils 0.1 % (0.0-1.0); %Eosinophils 1.1 % (0.0-10.0); %Lymphocytes 12.1 % (21.0-51.0); %Monocytes 8.2 % (0.0-10.0); %Neutrophils 78.5 % (42.0-75.0); Mean Corpuscular HGB CONC 32.7 g/dL (32.0-36.0); Mean Corpuscular Hemoglobin 30.1 pg (27.0-31.0); Mean Corpuscular Volume 91.9 fL (78.0-98.0); Mean Platelet Volume 7.5 fL (7.4-10.4); Platelet Count 921 thou/uL (130-400); Red Blood Cell (RBC) Count 3.66 mill/uL (4.70-6.10); White Blood Cell (WBC) Count 12.4 thou/uL (4.8-10.8)
[2019-06-01 05:20] LABS: Anion Gap 16 mmol/L (10-20); BUN (Urea Nitrogen) 31 mg/dL (8.9-20.6); Calc. Creatinine Clearance 131 mL/min (70-130); Calcium 9.7 mg/dL (7.8-10.44); Carbon Dioxide 24 mmol/L (22-29); Chloride 100 mmol/L (98-107); Estimated GFR-MDRD Greater than 90; Glucose 188 mg/dL (70-105); Magnesium 2.4 mg/dL (1.6-2.6); Phosphorus 3.3 mg/dL (2.3-4.7); Sodium 136 mmol/L (136-145)
[2019-06-01] MEDS: Acetaminophen/Codeine 120-12MG/5 ML UDCUP PO SCH ×4 (06:01→17:41)
[2019-06-01] MEDS: Morphine 4 MG/ML VIAL SLOW IVP PRN (09:22)
[2019-06-01] MEDS: Ferrous Sulfate 325 MG TAB PO SCH ×2 (09:26→17:40)
[2019-06-01] MEDS: Saccharomyces boulardii 250 MG CAP PO SCH ×2 (09:27→20:32)
[2019-06-01] MEDS: Ascorbic Acid 500 mg Chewable Tablet PO SCH ×2 (09:27→17:40)
[2019-06-01] MEDS: Famotidine 20 MG TAB PER TUBE SCH ×2 (09:28→20:32)
[2019-06-01] MEDS: Metoprolol Tartrate 25 MG TAB PO SCH ×2 (09:29→20:33)
[2019-06-01] MEDS: Bisacodyl 10 MG SUPP PR SCH (09:29)
[2019-06-01] MEDS: Amantadine HCl 100 mg Capsule PO SCH (09:30)
[2019-06-01] MEDS: levETIRAcetam 500 mg/5 ml Oral Solution PO SCH ×2 (09:30→20:32)
[2019-06-01] MEDS: Sodium Chloride 0.9% 1,000 ML IV SCH (09:31)
[2019-06-01] MEDS: Spironolactone 25 MG TAB PO SCH ×2 (09:31→17:40)
[2019-06-01] MEDS: Ventilator Sedation Protocol 1 EACH FS SCH (09:32)
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
--- NOTE | 2019-06-01 19:50 | PRG ---
Job ID: [id number] RELL
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
[2019-06-02] MEDS: Acetaminophen 650 MG/20.3 ML UDCUP PER TUBE SCH ×5 (00:21→20:05)
[2019-06-02] MEDS: Acetaminophen/Codeine 120-12MG/5 ML UDCUP PO SCH ×4 (00:36→17:20)
[2019-06-02] MEDS: cloNIDine 0.2 MG TAB PO SCH ×4 (03:03→21:02)
[2019-06-02 04:07] LABS: #Basophils 0.1 thou/uL (0.0-0.2); #Eosinphils 0.1 thou/uL (0.0-0.7); #Monocytes 1.4 thou/uL (0.11-0.59); #Neutrophils 15.6 thou/uL (1.40-6.50); %Basophils 0.3 % (0.0-1.0); %Eosinophils 0.4 % (0.0-10.0); %Lymphocytes 10.3 % (21.0-51.0); %Monocytes 7.2 % (0.0-10.0); %Neutrophils 81.8 % (42.0-75.0); Hemoglobin 11.5 g/dL (14.0-18.0); Mean Corpuscular HGB CONC 34.1 g/dL (32.0-36.0); Mean Corpuscular Hemoglobin 31.6 pg (27.0-31.0); Mean Corpuscular Volume 92.7 fL (78.0-98.0); Mean Platelet Volume 7.8 fL (7.4-10.4); Platelet Count 914 thou/uL (130-400); Red Blood Cell (RBC) Count 3.64 mill/uL (4.70-6.10)
[2019-06-02 04:22] LABS: Anion Gap 13 mmol/L (10-20); BUN (Urea Nitrogen) 35 mg/dL (8.9-20.6); Calc. Creatinine Clearance 134 mL/min (70-130); Calcium 9.6 mg/dL (7.8-10.44); Carbon Dioxide 26 mmol/L (22-29); Chloride 104 mmol/L (98-107); Estimated GFR-MDRD Greater than 90; Glucose 182 mg/dL (70-105); Magnesium 2.5 mg/dL (1.6-2.6); Phosphorus 2.9 mg/dL (2.3-4.7); Potassium 4.1 mmol/L (3.5-5.1); Sodium 139 mmol/L (136-145)
[2019-06-02] MEDS: Ascorbic Acid 500 mg Chewable Tablet PO SCH ×2 (08:47→16:01)
[2019-06-02] MEDS: Spironolactone 25 MG TAB PO SCH ×2 (08:47→16:01)
[2019-06-02] MEDS: Ferrous Sulfate 325 MG TAB PO SCH ×2 (08:47→16:01)
[2019-06-02] MEDS: Metoprolol Tartrate 25 MG TAB PO SCH ×2 (08:47→20:07)
[2019-06-02] MEDS: Famotidine 20 MG TAB PER TUBE SCH ×2 (08:48→20:07)
[2019-06-02] MEDS: Bisacodyl 10 MG SUPP PR SCH (08:48)
[2019-06-02] MEDS: Saccharomyces boulardii 250 MG CAP PO SCH ×2 (08:48→20:07)
[2019-06-02] MEDS: Amantadine HCl 100 mg Capsule PO SCH ×2 (08:48→20:06)
[2019-06-02] MEDS: Ibuprofen 100 MG/5 ML UDCUP PO PRN (08:49)
[2019-06-02] MEDS: levETIRAcetam 500 mg/5 ml Oral Solution PO SCH ×2 (08:49→20:06)
[2019-06-02] MEDS: Ventilator Sedation Protocol 1 EACH FS SCH (08:51)
[2019-06-02] MEDS: Aspirin 325 MG TAB PO SCH (09:20)
[2019-06-02] MEDS ORDERED: Midazolam HCl 2 mg/2 ml Vial SLOW IVP SCH (09:30)
[2019-06-02] MEDS ORDERED: Fentanyl 100 MCG/2 ML VIAL SLOW IVP SCH (09:30)
[2019-06-02] MEDS: Cefepime 1 GM in Sodium Chloride 0.9% 100 ML IVPB SCH ×2 (12:16→23:11)
[2019-06-02] MEDS: Vancomycin 1.5 GRAM/300 ML BAG 1.5 GM in Premix Bag 1 BAG IVPB SCH ×2 (14:28→20:05)
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
[2019-06-02] MEDS: cefTRIAXone\\ROCEPHIN 2 GM in Sodium Chloride 0.9% 100 ML IVPB SCH (16:08)
[2019-06-02] MEDS: Insulin Regular 300 UNITS/3 ML VIAL SC PRN (17:20)
[2019-06-02 19:55] LABS: Bacteria/HPF None Seen HPF (None Seen); Squamous Epithelial None Seen HPF (0-3); WBC/HPF 0-3 HPF (0-3)
[2019-06-02 20:14] LABS: Bilirubin Negative (Negative); Blood, Urine Negative (Negative); Glucose, Urine (Dipstick) Negative (Negative); Leukocyte Negative (Negative); Nitrite Negative (Negative); Protein, Urine (Dipstick) Negative (Neg-Trace)
[2019-06-02 20:15] LABS: Clarity Clear (Clear)
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
[2019-06-03] MEDS: Acetaminophen/Codeine 120-12MG/5 ML UDCUP PO SCH ×5 (00:01→23:47)
[2019-06-03] MEDS: Acetaminophen 650 MG/20.3 ML UDCUP PER TUBE SCH ×4 (03:10→20:02)
[2019-06-03] MEDS: Vancomycin 1.5 GRAM/300 ML BAG 1.5 GM in Premix Bag 1 BAG IVPB SCH ×3 (04:05→20:01)
[2019-06-03] MEDS: cloNIDine 0.2 MG TAB PO SCH ×4 (04:05→22:20)
--- NOTE | 2019-06-03 07:35 | RAD ---
CHEST 1 VIEW: Date: 06/03/2019 INDICATION: Pneumonia. COMPARISON: Prior exam dated . FINDINGS: There are air space opacities within the right upper lobe, right lower lobe, and left lower lobe, rony picious for developing infiltrate. There is no definite pleural effusion or pneumothorax evident. Tra cheostomy tube is unchanged. Osseous structures are similar appearing. The left subclavian central ve nous catheter has been intervally removed. IMPRESSION: 1. Developing bilateral air space opacities suspicious for developing pneumonia. 2. Left-sided rib fractures are unchanged. 3. Tracheostomy tube is unchanged. 4. Interval removal of left subclavian central venous catheter. 5. No pneumothorax. POS: BH
[2019-06-03] MEDS: Ascorbic Acid 500 mg Chewable Tablet PO SCH ×2 (08:29→16:31)
[2019-06-03] MEDS: Bisacodyl 10 MG SUPP PR SCH (08:31)
[2019-06-03] MEDS: Metoprolol Tartrate 25 MG TAB PO SCH ×2 (08:31→20:02)
[2019-06-03] MEDS: Spironolactone 25 MG TAB PO SCH ×2 (08:31→16:31)
[2019-06-03] MEDS: Ferrous Sulfate 325 MG TAB PO SCH ×2 (08:31→16:31)
[2019-06-03] MEDS: Saccharomyces boulardii 250 MG CAP PO SCH ×2 (08:31→20:02)
[2019-06-03] MEDS: Famotidine 20 MG TAB PER TUBE SCH ×2 (08:32→20:02)
[2019-06-03] MEDS: Ventilator Sedation Protocol 1 EACH FS SCH (08:32)
[2019-06-03] MEDS: Aspirin 325 MG TAB PO SCH (08:32)
[2019-06-03] MEDS: Amantadine HCl 100 mg Capsule PO SCH ×2 (09:19→20:02)
[2019-06-03] MEDS: levETIRAcetam 500 mg/5 ml Oral Solution PO SCH ×2 (09:20→20:02)
[2019-06-03] MEDS: Insulin Regular 300 UNITS/3 ML VIAL SC PRN (09:51)
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
[2019-06-03] MEDS: cefTRIAXone\\ROCEPHIN 2 GM in Sodium Chloride 0.9% 100 ML IVPB SCH (15:50)
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
[2019-06-04] MEDS: Acetaminophen 650 MG/20.3 ML UDCUP PER TUBE SCH ×4 (03:11→21:37)
[2019-06-04] MEDS: cloNIDine 0.2 MG TAB PO SCH ×4 (03:11→21:42)
[2019-06-04] MEDS: Vancomycin 1.5 GRAM/300 ML BAG 1.5 GM in Premix Bag 1 BAG IVPB SCH ×3 (03:16→20:57)
[2019-06-04 05:27] LABS: #Basophils 0.1 thou/uL (0.0-0.2); #Eosinphils 0.1 thou/uL (0.0-0.7); #Lymphocytes 1.7 thou/uL (1.20-3.40); #Monocytes 1.1 thou/uL (0.11-0.59); #Neutrophils 11.8 thou/uL (1.40-6.50); %Basophils 0.3 % (0.0-1.0); %Eosinophils 0.7 % (0.0-10.0); %Lymphocytes 11.2 % (21.0-51.0); %Monocytes 7.8 % (0.0-10.0); Hemoglobin 10.3 g/dL (14.0-18.0); Mean Corpuscular HGB CONC 31.4 g/dL (32.0-36.0); Mean Corpuscular Hemoglobin 29.7 pg (27.0-31.0); Mean Corpuscular Volume 94.6 fL (78.0-98.0); Mean Platelet Volume 8.1 fL (7.4-10.4); Platelet Count 821 thou/uL (130-400); RBC Distribution Width 13.9 % (11.5-14.5); Red Blood Cell (RBC) Count 3.46 mill/uL (4.70-6.10); White Blood Cell (WBC) Count 14.8 thou/uL (4.8-10.8)
[2019-06-04] MEDS: Acetaminophen/Codeine 120-12MG/5 ML UDCUP PO SCH ×3 (05:57→18:10)
[2019-06-04] MEDS: Ferrous Sulfate 325 MG TAB PO SCH ×2 (07:56→15:55)
[2019-06-04] MEDS: Bisacodyl 10 MG SUPP PR SCH (07:56)
[2019-06-04] MEDS: Saccharomyces boulardii 250 MG CAP PO SCH ×2 (07:56→21:35)
[2019-06-04] MEDS: Ascorbic Acid 500 mg Chewable Tablet PO SCH ×2 (07:56→15:55)
[2019-06-04] MEDS: Aspirin 325 MG TAB PO SCH (07:56)
[2019-06-04] MEDS: Ventilator Sedation Protocol 1 EACH FS SCH (07:57)
[2019-06-04] MEDS: Famotidine 20 MG TAB PER TUBE SCH ×2 (07:57→21:35)
[2019-06-04] MEDS: Spironolactone 25 MG TAB PO SCH ×2 (07:57→15:55)
[2019-06-04] MEDS: Metoprolol Tartrate 25 MG TAB PO SCH ×4 (07:57→21:35)
[2019-06-04] MEDS: levETIRAcetam 500 mg/5 ml Oral Solution PO SCH ×2 (09:11→21:37)
[2019-06-04] MEDS: Amantadine HCl 100 mg Capsule PO SCH ×2 (09:12→21:36)
[2019-06-04] MEDS: Morphine 4 MG/ML VIAL SLOW IVP PRN ×2 (09:53→10:17)
[2019-06-04] MEDS: Insulin Regular 300 UNITS/3 ML VIAL SC PRN ×2 (10:08→21:39)
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
[2019-06-04] MEDS: cefTRIAXone\\ROCEPHIN 2 GM in Sodium Chloride 0.9% 100 ML IVPB SCH (15:43)
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
[2019-06-05] MEDS: Acetaminophen/Codeine 120-12MG/5 ML UDCUP PO SCH ×5 (00:03→23:38)
[2019-06-05] MEDS: Insulin Regular 300 UNITS/3 ML VIAL SC PRN ×4 (00:04→19:18)
[2019-06-05] MEDS: Acetaminophen 650 MG/20.3 ML UDCUP PER TUBE SCH ×4 (03:29→19:46)
[2019-06-05] MEDS: Vancomycin 1.5 GRAM/300 ML BAG 1.5 GM in Premix Bag 1 BAG IVPB SCH (03:30)
[2019-06-05] MEDS: cloNIDine 0.2 MG TAB PO SCH ×5 (03:30→23:04)
[2019-06-05 03:41] LABS: #Eosinphils 0.2 thou/uL (0.0-0.7); #Lymphocytes 2.1 thou/uL (1.20-3.40); #Monocytes 1.1 thou/uL (0.11-0.59); #Neutrophils 11.9 thou/uL (1.40-6.50); %Basophils 0.3 % (0.0-1.0); %Eosinophils 1.2 % (0.0-10.0); %Lymphocytes 13.5 % (21.0-51.0); %Monocytes 7.1 % (0.0-10.0); %Neutrophils 77.9 % (42.0-75.0); Mean Corpuscular Hemoglobin 29.4 pg (27.0-31.0); Mean Corpuscular Volume 94.9 fL (78.0-98.0); Mean Platelet Volume 7.1 fL (7.4-10.4); Platelet Count 814 thou/uL (130-400); RBC Distribution Width 13.9 % (11.5-14.5); Red Blood Cell (RBC) Count 3.39 mill/uL (4.70-6.10); White Blood Cell (WBC) Count 15.3 thou/uL (4.8-10.8)
[2019-06-05 04:01] LABS: Anion Gap 12 mmol/L (10-20); BUN (Urea Nitrogen) 30 mg/dL (8.9-20.6); Calc. Creatinine Clearance 141 mL/min (70-130); Calcium 9.5 mg/dL (7.8-10.44); Carbon Dioxide 23 mmol/L (22-29); Chloride 116 mmol/L (98-107); Estimated GFR-MDRD Greater than 90; Glucose 179 mg/dL (70-105); Magnesium 2.3 mg/dL (1.6-2.6); Phosphorus 2.9 mg/dL (2.3-4.7); Potassium 4.2 mmol/L (3.5-5.1); Sodium 147 mmol/L (136-145)
--- NOTE | 2019-06-05 06:27 | CT ---
CT OF THE BRAIN WITHOUT CONTRAST: Date: 06/05/2019 INDICATION: History of right hemicraniectomy. COMPARISON: Prior exam dated 05/29/2019. FINDINGS: The large right frontal, parietal, and temporal craniectomy with overlying craniectomy flap is stable . Herniated right cerebrum is similar appearing. Diffuse vasogenic edema involving the right cerebral hemisphere is similar appearing. The intraparenchymal hemorrhage seen within the right frontal lobe, right parietal, and right temporal lobe have diminished. The parafalcine subdural hematoma is also d ecreased in size and prominence. Midline shift is similar at 3.0 mm from left to right. No hydrocepha jose armando is present. Basilar cisterns are patent. No interval acute infarct is demonstrated. There is comp lete opacification of the right mastoid air cells. Right temporal bone fracture is similar appearing. Air-fluid levels again seen within the sphenoid sinus. IMPRESSION: 1. Resolving intraparenchymal contusions of the right cerebral hemisphere and resolving parafalcine subdural hematoma. Small amount of residual intraventricular hemorrhage seen within the left lateral ventricle atrium. Stable herniation of portions of the right cerebrum through the large right frontal , parietal, and temporal craniectomy site. 2. Stable right temporal bone fracture with opacification of right mastoid air cells. 3. Air-fluid level within the sphenoid sinus. POS: BH
[2019-06-05] MEDS: Amantadine HCl 100 mg Capsule PO SCH ×2 (09:49→19:46)
[2019-06-05] MEDS: levETIRAcetam 500 mg/5 ml Oral Solution PO SCH ×2 (09:49→19:47)
[2019-06-05] MEDS: Famotidine 20 MG TAB PER TUBE SCH ×2 (09:50→19:46)
[2019-06-05] MEDS: Aspirin 325 MG TAB PO SCH (09:50)
[2019-06-05] MEDS: Saccharomyces boulardii 250 MG CAP PO SCH ×2 (09:50→19:46)
[2019-06-05] MEDS: Metoprolol Tartrate 25 MG TAB PO SCH ×4 (09:50→19:46)
[2019-06-05] MEDS: Spironolactone 25 MG TAB PO SCH ×2 (09:52→16:17)
[2019-06-05] MEDS: Ferrous Sulfate 325 MG TAB PO SCH ×2 (09:52→16:14)
[2019-06-05] MEDS: Ascorbic Acid 500 mg Chewable Tablet PO SCH ×2 (09:52→16:13)
[2019-06-05] MEDS: Bisacodyl 10 MG SUPP PR SCH (09:52)
[2019-06-05 11:57] LABS: Vancomycin, Trough 18.3 ug/mL
[2019-06-05] MEDS: Ventilator Sedation Protocol 1 EACH FS SCH (12:45)
--- NOTE | 2019-06-05 15:19 | PRG ---
DATE OF SERVICE: 06/05/2019 Mr. Lu is now 18 days out from right-sided frontotemporoparietal craniectomy and temporal lobectomy. His head CT this morning demonstrates a mild enlargement of his ventricular system with extra-axial subdural hygromas forming and this is essentially a form of external hydrocephalus, although not something that we need to treat at this point. His cerebral edema and herniation are reducing and flap is getting softer, which is what I would expect. We will need to continue to watch for developing internal and external hydrocephalus. When the patient's brain is herniated out, it reduces the reabsorption capacity associated with the traumatic blood products and the normal flow of CSF around the convexities and leads to increased CSF buildup in the subdural space and again this leads to internal and external hydrocephalus. We will watch for this. Neurologically, he is improving. He is withdrawn in the left upper extremity more briskly. I am encouraged in this regard. We will continue him on levetiracetam. He is being treated for pulmonary infection. Of note, from laboratory assessment, his platelet count is coming down and this is consistent with acute phase reactant reduction. He is on full-strength aspirin. He remains obviously in guarded condition, but I am encouraged. Job ID: [id number]
[2019-06-05] MEDS: cefTRIAXone\\ROCEPHIN 2 GM in Sodium Chloride 0.9% 100 ML IVPB SCH (16:09)
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
[2019-06-06] MEDS: Acetaminophen 650 MG/20.3 ML UDCUP PER TUBE SCH ×4 (04:10→20:12)
[2019-06-06] MEDS: cloNIDine 0.2 MG TAB PO SCH ×4 (04:10→20:17)
[2019-06-06] MEDS: Acetaminophen/Codeine 120-12MG/5 ML UDCUP PO SCH ×3 (05:48→16:26)
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
[2019-06-06] MEDS: Spironolactone 25 MG TAB PO SCH ×2 (09:58→16:09)
[2019-06-06] MEDS: Amantadine HCl 100 mg Capsule PO SCH ×2 (09:59→20:13)
[2019-06-06] MEDS: Aspirin 325 MG TAB PO SCH (09:59)
[2019-06-06] MEDS: Famotidine 20 MG TAB PER TUBE SCH ×2 (10:00→20:12)
[2019-06-06] MEDS: Metoprolol Tartrate 25 MG TAB PO SCH (10:01)
[2019-06-06] MEDS: Bisacodyl 10 MG SUPP PR SCH (10:01)
[2019-06-06] MEDS: Saccharomyces boulardii 250 MG CAP PO SCH ×2 (10:01→20:12)
[2019-06-06] MEDS: Ferrous Sulfate 325 MG TAB PO SCH ×2 (10:02→16:09)
[2019-06-06] MEDS: Ascorbic Acid 500 mg Chewable Tablet PO SCH ×2 (10:02→16:09)
[2019-06-06] MEDS: levETIRAcetam 500 mg/5 ml Oral Solution PO SCH ×2 (10:03→20:12)
[2019-06-06 11:06] LABS: Anion Gap 11 mmol/L (10-20); BUN (Urea Nitrogen) 24 mg/dL (8.9-20.6); Calc. Creatinine Clearance 133 mL/min (70-130); Calcium 9.4 mg/dL (7.8-10.44); Carbon Dioxide 24 mmol/L (22-29); Chloride 115 mmol/L (98-107); Estimated GFR-MDRD Greater than 90; Glucose 207 mg/dL (70-105); Potassium 4.2 mmol/L (3.5-5.1); Sodium 146 mmol/L (136-145)
--- NOTE | 2019-06-06 12:28 | PRG ---
DATE OF SERVICE: 06/06/2019 Mr. Lu is 19 days out from his right frontotemporoparietal craniectomy and temporal lobectomy. This morning, he is a bit more interactive and that he tries to open his eyes with coughing and will localize spontaneously in the right upper extremity, he prefers to keep his eyes closed though. He remains somnolent, and in regard to left upper extremity, he is starting to withdraw more. His wound is dry. We will leave the sutures in, preferably for a full month. His flap remains full and vacillates between somewhat soft and somewhat tense. We will need to continue to watch him for development of hydrocephalus. Should this occur while I am away, an external ventricular drain could be placed if felt necessary and I could likely transition this to shunt and potential bone flap replacement upon my return. Job ID: [id number]
[2019-06-06] MEDS ORDERED: Metoprolol Tartrate 50 MG TAB PO SCH (13:00)
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
[2019-06-06] MEDS: cefTRIAXone\\ROCEPHIN 2 GM in Sodium Chloride 0.9% 100 ML IVPB SCH (16:08)
[2019-06-06] MEDS: Insulin Regular 300 UNITS/3 ML VIAL SC PRN (16:12)
[2019-06-06] MEDS: Metoprolol Tartrate 50 MG TAB PO SCH (20:16)
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
[2019-06-07] MEDS: Acetaminophen/Codeine 120-12MG/5 ML UDCUP PO SCH ×5 (00:45→23:15)
[2019-06-07] MEDS: Acetaminophen 650 MG/20.3 ML UDCUP PER TUBE SCH ×4 (04:00→22:09)
[2019-06-07] MEDS: cloNIDine 0.2 MG TAB PO SCH ×4 (04:00→22:22)
[2019-06-07] MEDS: Saccharomyces boulardii 250 MG CAP PO SCH ×2 (09:18→22:10)
[2019-06-07] MEDS: Aspirin 325 MG TAB PO SCH (09:18)
[2019-06-07] MEDS: levETIRAcetam 500 mg/5 ml Oral Solution PO SCH ×2 (09:18→22:24)
[2019-06-07] MEDS: Ferrous Sulfate 325 MG TAB PO SCH ×2 (09:19→16:29)
[2019-06-07] MEDS: Metoprolol Tartrate 50 MG TAB PO SCH ×2 (09:19→22:11)
[2019-06-07] MEDS: Famotidine 20 MG TAB PER TUBE SCH ×2 (09:19→22:10)
[2019-06-07] MEDS: Amantadine HCl 100 mg Capsule PO SCH ×2 (09:19→22:09)
[2019-06-07] MEDS: Ascorbic Acid 500 mg Chewable Tablet PO SCH ×2 (09:19→16:28)
[2019-06-07] MEDS: Spironolactone 25 MG TAB PO SCH ×2 (09:27→16:28)
[2019-06-07] MEDS: Bisacodyl 10 MG SUPP PR SCH (09:27)
[2019-06-07] MEDS: Insulin Regular 300 UNITS/3 ML VIAL SC PRN ×3 (12:30→22:26)
[2019-06-07] MEDS: cefTRIAXone\\ROCEPHIN 2 GM in Sodium Chloride 0.9% 100 ML IVPB SCH (16:28)
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
[2019-06-08] MEDS: Acetaminophen 650 MG/20.3 ML UDCUP PER TUBE SCH ×4 (03:31→21:37)
[2019-06-08] MEDS: cloNIDine 0.2 MG TAB PO SCH ×4 (04:18→22:13)
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
[2019-06-08] MEDS: Insulin Regular 300 UNITS/3 ML VIAL SC PRN ×3 (06:26→22:14)
[2019-06-08] MEDS: Acetaminophen/Codeine 120-12MG/5 ML UDCUP PO SCH ×3 (06:26→17:15)
[2019-06-08 08:25] LABS: #Eosinphils 0.7 thou/uL (0.0-0.7); #Lymphocytes 1.9 thou/uL (1.20-3.40); #Neutrophils 10.2 thou/uL (1.40-6.50); %Basophils 0.3 % (0.0-1.0); %Eosinophils 4.8 % (0.0-10.0); %Lymphocytes 13.8 % (21.0-51.0); %Monocytes 7.2 % (0.0-10.0); %Neutrophils 73.9 % (42.0-75.0); Hemoglobin 11.7 g/dL (14.0-18.0); Mean Corpuscular HGB CONC 33.1 g/dL (32.0-36.0); Mean Corpuscular Hemoglobin 31.3 pg (27.0-31.0); Mean Corpuscular Volume 94.5 fL (78.0-98.0); Platelet Count 652 thou/uL (130-400); RBC Distribution Width 13.8 % (11.5-14.5); Red Blood Cell (RBC) Count 3.75 mill/uL (4.70-6.10); White Blood Cell (WBC) Count 13.8 thou/uL (4.8-10.8)
[2019-06-08 08:49] LABS: Anion Gap 11 mmol/L (10-20); BUN (Urea Nitrogen) 29 mg/dL (8.9-20.6); Calc. Creatinine Clearance 133 mL/min (70-130); Calcium 9.4 mg/dL (7.8-10.44); Carbon Dioxide 27 mmol/L (22-29); Chloride 114 mmol/L (98-107); Estimated GFR-MDRD Greater than 90; Glucose 156 mg/dL (70-105); Potassium 4.5 mmol/L (3.5-5.1); Sodium 147 mmol/L (136-145)
[2019-06-08] MEDS: Saccharomyces boulardii 250 MG CAP PO SCH ×2 (09:41→21:38)
[2019-06-08] MEDS: Amantadine HCl 100 mg Capsule PO SCH ×2 (09:41→21:38)
[2019-06-08] MEDS: levETIRAcetam 500 mg/5 ml Oral Solution PO SCH ×2 (09:41→21:38)
[2019-06-08] MEDS: Aspirin 325 MG TAB PO SCH (09:41)
[2019-06-08] MEDS: Ascorbic Acid 500 mg Chewable Tablet PO SCH ×2 (09:41→17:05)
[2019-06-08] MEDS: Spironolactone 25 MG TAB PO SCH ×2 (09:42→17:05)
[2019-06-08] MEDS: Famotidine 20 MG TAB PER TUBE SCH ×2 (09:42→21:38)
[2019-06-08] MEDS: Ferrous Sulfate 325 MG TAB PO SCH ×2 (09:42→17:05)
[2019-06-08] MEDS: Bisacodyl 10 MG SUPP PR SCH (09:42)
[2019-06-08] MEDS: Metoprolol Tartrate 50 MG TAB PO SCH ×2 (09:42→21:38)
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
[2019-06-08] MEDS: cefTRIAXone\\ROCEPHIN 2 GM in Sodium Chloride 0.9% 100 ML IVPB SCH (17:03)
[2019-06-09] MEDS: Acetaminophen/Codeine 120-12MG/5 ML UDCUP PO SCH ×4 (01:15→17:47)
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
[2019-06-09] MEDS: Acetaminophen 650 MG/20.3 ML UDCUP PER TUBE SCH ×4 (04:13→21:17)
[2019-06-09] MEDS: cloNIDine 0.2 MG TAB PO SCH ×4 (04:13→21:25)
[2019-06-09] MEDS: Ascorbic Acid 500 mg Chewable Tablet PO SCH ×2 (08:28→17:47)
[2019-06-09] MEDS: Famotidine 20 MG TAB PER TUBE SCH ×2 (08:28→21:18)
[2019-06-09] MEDS: Amantadine HCl 100 mg Capsule PO SCH ×2 (08:28→21:17)
[2019-06-09] MEDS: Spironolactone 25 MG TAB PO SCH ×2 (08:29→17:47)
[2019-06-09] MEDS: Ferrous Sulfate 325 MG TAB PO SCH ×2 (08:29→17:47)
[2019-06-09] MEDS: Metoprolol Tartrate 50 MG TAB PO SCH ×2 (08:29→21:17)
[2019-06-09] MEDS: Saccharomyces boulardii 250 MG CAP PO SCH ×2 (08:29→21:17)
[2019-06-09] MEDS: Aspirin 325 MG TAB PO SCH (08:29)
[2019-06-09] MEDS: levETIRAcetam 500 mg/5 ml Oral Solution PO SCH ×2 (08:30→21:17)
[2019-06-09] MEDS: Bisacodyl 10 MG SUPP PR SCH (08:58)
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
[2019-06-09] MEDS: cefTRIAXone\\ROCEPHIN 2 GM in Sodium Chloride 0.9% 100 ML IVPB SCH (15:51)
[2019-06-09] MEDS: Insulin Regular 300 UNITS/3 ML VIAL SC PRN ×2 (16:25→21:44)
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
[2019-06-10] MEDS: Acetaminophen 650 MG/20.3 ML UDCUP PER TUBE SCH ×4 (03:52→21:38)
[2019-06-10] MEDS: cloNIDine 0.2 MG TAB PO SCH ×4 (03:52→21:39)
[2019-06-10 05:18] LABS: Band 6 % (5-11); Eosinophils 1 % (0-10); Hemoglobin 11.9 g/dL (14.0-18.0); Lymphocytes 15 % (21-51); MDiff Complete? YES; Mean Corpuscular Hemoglobin 30.2 pg (27.0-31.0); Mean Corpuscular Volume 94.2 fL (78.0-98.0); Mean Platelet Volume 7.7 fL (7.4-10.4); Monocytes 7 % (0-10); Neutrophil 71 % (42-75); Platelet Count 534 thou/uL (130-400); Platelet Morphology Comment Appears Increased; RBC Distribution Width 14.1 % (11.5-14.5); Red Blood Cell (RBC) Count 3.93 mill/uL (4.70-6.10); White Blood Cell (WBC) Count 13.4 thou/uL (4.8-10.8)
[2019-06-10] MEDS: Insulin Regular 300 UNITS/3 ML VIAL SC PRN ×2 (05:18→17:30)
[2019-06-10 05:26] LABS: Anion Gap 13 mmol/L (10-20); BUN (Urea Nitrogen) 31 mg/dL (8.9-20.6); Calc. Creatinine Clearance 128 mL/min (70-130); Calcium 9.4 mg/dL (7.8-10.44); Carbon Dioxide 24 mmol/L (22-29); Chloride 110 mmol/L (98-107); Estimated GFR-MDRD Greater than 90; Glucose 165 mg/dL (70-105); Magnesium 2.3 mg/dL (1.6-2.6); Phosphorus 3.8 mg/dL (2.3-4.7); Potassium 4.3 mmol/L (3.5-5.1); Sodium 143 mmol/L (136-145)
[2019-06-10] MEDS ORDERED: Morphine 4 MG/ML VIAL SLOW IVP PRN (08:28)
[2019-06-10] MEDS: levETIRAcetam 500 mg/5 ml Oral Solution PO SCH ×2 (09:15→21:39)
[2019-06-10] MEDS: Bisacodyl 10 MG SUPP PR SCH (09:16)
[2019-06-10] MEDS: Aspirin 325 MG TAB PO SCH (09:16)
[2019-06-10] MEDS: Saccharomyces boulardii 250 MG CAP PO SCH ×2 (09:16→21:38)
[2019-06-10] MEDS: Spironolactone 25 MG TAB PO SCH ×2 (09:18→17:28)
[2019-06-10] MEDS: Amantadine HCl 100 mg Capsule PO SCH ×2 (09:18→21:38)
[2019-06-10] MEDS: Ascorbic Acid 500 mg Chewable Tablet PO SCH ×2 (09:19→17:29)
[2019-06-10] MEDS: Ferrous Sulfate 325 MG TAB PO SCH ×2 (09:19→17:28)
[2019-06-10] MEDS: Famotidine 20 MG TAB PER TUBE SCH ×2 (09:19→21:38)
[2019-06-10] MEDS: Metoprolol Tartrate 50 MG TAB PO SCH ×3 (09:19→22:34)
[2019-06-10] MEDS: cefTRIAXone\\ROCEPHIN 2 GM in Sodium Chloride 0.9% 100 ML IVPB SCH (17:22)
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
[2019-06-11] MEDS: Acetaminophen 650 MG/20.3 ML UDCUP PER TUBE SCH ×4 (04:48→20:12)
[2019-06-11] MEDS: cloNIDine 0.2 MG TAB PO SCH ×5 (06:08→20:13)
[2019-06-11] MEDS: Ferrous Sulfate 325 MG TAB PO SCH ×2 (08:57→18:39)
[2019-06-11] MEDS: Amantadine HCl 100 mg Capsule PO SCH ×2 (08:57→20:13)
[2019-06-11] MEDS: Saccharomyces boulardii 250 MG CAP PO SCH ×2 (08:57→20:13)
[2019-06-11] MEDS: Famotidine 20 MG TAB PER TUBE SCH ×2 (08:57→20:12)
[2019-06-11] MEDS: Aspirin 325 MG TAB PO SCH (08:57)
[2019-06-11] MEDS: Ascorbic Acid 500 mg Chewable Tablet PO SCH ×2 (08:57→18:39)
[2019-06-11] MEDS: Bisacodyl 10 MG SUPP PR SCH (08:58)
[2019-06-11] MEDS: levETIRAcetam 500 mg/5 ml Oral Solution PO SCH ×2 (08:58→20:12)
[2019-06-11] MEDS: Spironolactone 25 MG TAB PO SCH ×2 (08:58→19:15)
[2019-06-11] MEDS: Metoprolol Tartrate 50 MG TAB PO SCH ×2 (08:58→20:13)
--- NOTE | 2019-06-11 09:56 | CT ---
Head CT without contrast 06/11/2019: COMPARISON: 06/05/2019 HISTORY: Head injury TECHNIQUE: Axial CT imaging at 5 mm intervals from vertex through skull base without contrast FINDINGS: There is evidence of prior right-sided frontal and temporal craniectomy with a calvarial fl ap overlying the lateral aspect of the temporal lobe and frontal lobe on the right. There is lateral herniation of brain parenchyma, which includes portions of the right temporal lobe and right frontal lobe lateral to the craniectomy defect with associated lateral displacement of the sympathetic calvarial flap. There is extensive hypodensity involving the subcortical white matter and cortex of the temporal lobe on the right within the middle cranial fossa. There is also extensive hypodensity involving the deep and subcortical white matter throughout the lateral right temporal lobe, evidence of relatively stable cerebral edema. There is a hypodense subdural fluid collection on the left, with a component in the middle cranial fossa measuring 5 mm in AP dimension, not significantly changed, and with a com ponent along the convexity on the left, measuring up to 1.1 cm in transverse dimension and the frontal region on the left, increased from 8 mm. There is worsening midline shift from left to right, which measures approximately 8 mm at the axial l evel of the septum lucidum, which measured approximately 3 mm on the recent prior exam. There is a hypodense subdural fluid collection in the medial right frontal region, decreased when com pared to the 06/05/2019 exam. When compared to the 06/05/2019 examination there are new areas of intra-axial hemorrhage, including a focus of hemorrhage within the laterally herniated right frontal lobe on axial image 23 measuring 1.1 cm. There is extensive new subcortical and cortically based hemorrhage in the right posterior par ietal and occipital region, measuring up to 4.4 cm. The fourth ventricle is mildly enlarged, measuring 2.4 cm in transverse dimension, slightly worsened when compared to the most recent prior exam. In addition, the right lateral ventricle has enlarged since the prior examination consistent with a degree of subfalcine herniation. There is an obliquely oriented and comminuted temporal bone fracture on the right with opacification of the right mastoid air cells. Fracture line extends into the region of the right temporomandibular joint and foramen ovale. Fracture also appears to involve the lateral aspect of the sphenoid sinus on the right. IMPRESSION: Interval development of multifocal intra-axial hemorrhage on the right. Enlarging hypoden se subdural fluid collection on the left, suggesting a subdural hygroma, with worsening left to right midline shift and associated subfalcine herniation. Kailee Gomez NP, made aware via phone by Dr. Bruce at 9:53 AM 06/11/2019.
--- NOTE | 2019-06-11 12:51 | ULT ---
BILATERAL LOWER EXTREMITY VENOUS DOPPLER ULTRASOUND: Date: 06/11/2019 HISTORY: Bilateral lower extremity edema and pain. TECHNIQUE: Mueller scale ultrasound with color flow and spectral Doppler imaging of the deep venous systems of the lower extremities was performed bilaterally. FINDINGS: There is good flow, compression, and augmentation noted in the common femoral, femoral, deep femoral, popliteal, posterior tibial, and greater saphenous veins on either side. IMPRESSION: No evidence of deep venous thrombosis in either lower extremity. POS: [facility]
[2019-06-11] MEDS: cefTRIAXone\\ROCEPHIN 2 GM in Sodium Chloride 0.9% 100 ML IVPB SCH (15:39)
[2019-06-11] MEDS: Insulin Regular 300 UNITS/3 ML VIAL SC PRN (18:40)
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
[2019-06-12] MEDS: cloNIDine 0.2 MG TAB PO SCH ×4 (03:20→21:01)
[2019-06-12] MEDS: Acetaminophen 650 MG/20.3 ML UDCUP PER TUBE SCH ×4 (03:20→20:22)
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
[2019-06-12 05:31] LABS: #Eosinphils 0.3 thou/uL (0.0-0.7); #Lymphocytes 2.2 thou/uL (1.20-3.40); #Neutrophils 10.4 thou/uL (1.40-6.50); %Basophils 0.2 % (0.0-1.0); %Lymphocytes 15.9 % (21.0-51.0); %Monocytes 7.1 % (0.0-10.0); %Neutrophils 74.8 % (42.0-75.0); Mean Corpuscular Volume 93.9 fL (78.0-98.0); Platelet Count 389 thou/uL (130-400); RBC Distribution Width 14.6 % (11.5-14.5); Red Blood Cell (RBC) Count 3.88 mill/uL (4.70-6.10)
[2019-06-12 05:54] LABS: Anion Gap 12 mmol/L (10-20); BUN (Urea Nitrogen) 33 mg/dL (8.9-20.6); Calc. Creatinine Clearance 134 mL/min (70-130); Calcium 9.7 mg/dL (7.8-10.44); Carbon Dioxide 26 mmol/L (22-29); Chloride 114 mmol/L (98-107); Estimated GFR-MDRD Greater than 90; Glucose 141 mg/dL (70-105); Magnesium 2.4 mg/dL (1.6-2.6); Phosphorus 4.2 mg/dL (2.3-4.7); Potassium 4.1 mmol/L (3.5-5.1); Sodium 148 mmol/L (136-145)
--- NOTE | 2019-06-12 08:25 | CT ---
PRELIMINARY REPORT/[facility]/EMERGENCY AFTER HOURS PROCEDURE PROCEDURE: CT Head without Contrast . HISTORY: Follow-up intracranial hemorrhage. TECHNIQUE: Axial images were performed without the administration of IV contrast with or without mult iplanar reformations . COMPARISON: 06/11/2019. FINDINGS: Previous craniectomy on the RIGHT with unchanged intraparenchymal hemorrhage involving RIGH T occipital, parietal, temporal, and frontal lobes with edema and expansion of the brain into the radio control crane operator niectomy site. Unchanged 14 mm chronic subdural on the LEFT over the convexity with moderate mass eff ect on the adjacent cerebrum. Unchanged 11 mm midline shift of the septum pellucidum to the RIGHT. In creased hydrocephalus involving 3rd and lateral ventricles compared to previous exam. 4th ventricle is mildly enlarged and appears similar to previous study. No other acute change identified. IMPRESSION: Unchanged RIGHT cerebral intraparenchymal hemorrhage with adjacent edema and expansion in to the patient's craniectomy site on the RIGHT. Unchanged chronic subdural fluid collection over the convexity on the LEFT with moderate mass effect. Unchanged midline shift to the RIGHT. * Slight increase in hydrocephalus 3rd and lateral ventricles since previous study. ELECTRONICALLY SIGNED BY: Alo Short MD Jun 12, 2019 5:16:54 AM CDT FINAL REPORT HEAD CT WITHOUT CONTRAST: COMPARISON: 06/11/2019. HISTORY: Followup intracranial hemorrhage. Craniectomy. FINDINGS: Stable postsurgical change is compatible with a right craniectomy. There is herniation of brain pare nchyma through the craniectomy defect. There is evidence of edematous change involving the right cer ebrum. Redemonstration of a hemorrhage focus in the right temporal parietal brain parenchyma measuri ng at least 5.0 cm. The area of hematoma has slightly progressed when compared to the previous exami nation. Stable extraaxial fluid collection along the left frontal convexity with mass effect upon th e left frontal lobe. Collection measures 12 mm. Redemonstration of left to right midline shift, slightly progressed since the previous exam. Worseni ng hydrocephalus with dilatation of the temporal horns of the lateral ventricles, right greater than left. IMPRESSION: This report is essentially in agreement with the initial report by [facility]. Redemonstration of intraparenchymal hemorrhage with associated edematous changes. The hematoma has slightly increas ed in size as has the degree of left to right subfalcine herniation. The results of the study were conveyed to Tiffanie Taylor 06/12/2019 at 7:57 a.m. via [employer]. CODE CR POS: CET
[2019-06-12] MEDS: Metoprolol Tartrate 50 MG TAB PO SCH ×2 (08:54→20:22)
[2019-06-12] MEDS: Ascorbic Acid 500 mg Chewable Tablet PO SCH ×2 (08:54→17:43)
[2019-06-12] MEDS: Ferrous Sulfate 325 MG TAB PO SCH ×2 (08:54→17:42)
[2019-06-12] MEDS: Amantadine HCl 100 mg Capsule PO SCH ×2 (08:54→20:22)
[2019-06-12] MEDS: levETIRAcetam 500 mg/5 ml Oral Solution PO SCH ×2 (08:55→20:22)
[2019-06-12] MEDS: Bisacodyl 10 MG SUPP PR SCH (08:55)
[2019-06-12] MEDS: Famotidine 20 MG TAB PER TUBE SCH ×2 (08:55→20:22)
[2019-06-12] MEDS: Spironolactone 25 MG TAB PO SCH ×2 (08:55→17:42)
[2019-06-12] MEDS: Saccharomyces boulardii 250 MG CAP PO SCH ×2 (08:55→20:22)
--- NOTE | 2019-06-12 10:13 | PRG ---
DATE OF SERVICE: 06/12/2019 We were reconsulted on Mr. Lu due to feeling that his mental status had deteriorated somewhat. He also had a CT scan showing increased ventricular size and increase in left subdural hygroma with more shift. There was some hemorrhagic conversion in the right temporal lobe and some additional protrusion through the craniectomy defect. Because of his poor baseline neurologic exam, it was difficult for us to delineate a true change, but we do defer to the providers and family members who have been with him continuously. Furthermore, we repeated a CT scan today and seems slightly worse radiographically. It is my opinion that he has developed enough hydrocephalus. The treatment is warranted and I am recommending a ventriculostomy. We will move into the ICU for this purpose. Placement of ventriculostomy will be somewhat difficult given the deformation of the ventricular system and we will try for a left frontal ventriculostomy, but if this fails, we will need to place a right frontal ventriculostomy that may go through the flap. Job ID: [id number]
[2019-06-12] MEDS ORDERED: Lidocaine 1% (PF) 30 ML VIAL ONE (12:00)
[2019-06-12] MEDS ORDERED: Fentanyl 100 MCG/2 ML VIAL ONE (12:00)
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
[2019-06-12] MEDS: cefTRIAXone\\ROCEPHIN 2 GM in Sodium Chloride 0.9% 100 ML IVPB SCH (17:38)
[2019-06-12] MEDS: CEFAZOLIN 2 GM in Premix Bag 1 BAG IVPB SCH ×2 (17:39→20:58)
[2019-06-12] MEDS: Insulin Regular 300 UNITS/3 ML VIAL SC PRN ×2 (18:53→20:38)
--- NOTE | 2019-06-12 20:20 | OP ---
DATE OF PROCEDURE: 06/12/2019 PREPROCEDURE DIAGNOSIS: Hydrocephalus. PROCEDURE PERFORMED: Left external ventricular drain placement with duane hole. DESCRIPTION OF PROCEDURE: Regan's point was localized in the left frontal scalp. This was marked, prepped with ChloraPrep and infiltrated with 1% lidocaine without epinephrine over the subcutaneous tissue. Then at this point, a 15 blade knife was used to incise the scalp down to the periosteum making roughly 1 cm incision. A cranial twist drill was then used to create a duane hole at Regan's point in the left frontal bone. The dura was opened easily with blunt dissection, and there was significant hygroma fluid that was returned following opening the dura. Then, an interventricular catheter was placed at the depth of 6 cm with slow egress of serosanguineous fluid into the catheter. This was hooked up to the Navarrete drain. The incision was then closed using Ethilon suture. The drain was set at 10 cm of water open. The patient was placed on Ancef 2 g q.8h. The patient tolerated the procedure well. Job ID: [id number]
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
[2019-06-13 04:17] LABS: Anion Gap 12 mmol/L (10-20); BUN (Urea Nitrogen) 34 mg/dL (8.9-20.6); Calc. Creatinine Clearance 154 mL/min (70-130); Calcium 9.5 mg/dL (7.8-10.44); Carbon Dioxide 22 mmol/L (22-29); Chloride 115 mmol/L (98-107); Estimated GFR-MDRD Greater than 90; Glucose 161 mg/dL (70-105); Magnesium 2.3 mg/dL (1.6-2.6); Phosphorus 3.9 mg/dL (2.3-4.7); Potassium 4.2 mmol/L (3.5-5.1); Sodium 145 mmol/L (136-145)
[2019-06-13 04:27] LABS: Band 2 % (5-11); Eosinophils 7 % (0-10); Hemoglobin 12.4 g/dL (14.0-18.0); Lymphocytes 17 % (21-51); MDiff Complete? YES; Mean Corpuscular HGB CONC 31.9 g/dL (32.0-36.0); Mean Corpuscular Hemoglobin 30.6 pg (27.0-31.0); Mean Corpuscular Volume 95.7 fL (78.0-98.0); Mean Platelet Volume 7.8 fL (7.4-10.4); Monocytes 7 % (0-10); Neutrophil 67 % (42-75); Platelet Count 355 thou/uL (130-400); RBC Distribution Width 14.4 % (11.5-14.5); Red Blood Cell (RBC) Count 4.04 mill/uL (4.70-6.10); White Blood Cell (WBC) Count 13.2 thou/uL (4.8-10.8)
[2019-06-13] MEDS: cloNIDine 0.2 MG TAB PO SCH ×4 (04:27→23:05)
[2019-06-13] MEDS: Acetaminophen 650 MG/20.3 ML UDCUP PER TUBE SCH ×4 (04:30→21:55)
[2019-06-13] MEDS: CEFAZOLIN 2 GM in Premix Bag 1 BAG IVPB SCH ×3 (04:30→21:56)
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
--- NOTE | 2019-06-13 08:27 | PRG ---
DATE OF SERVICE: 06/13/[address] was notable for development of increased hydrocephalus. The subdural collection and midline shift were relatively unchanged. I discussed with the family and decision was made to place a left frontal EVD. This was placed without difficulty at the bedside. This has been set at 10 cm water and overnight, the patient has had anywhere from 0 to 20 mL out per hour. His ICP has ranged from 5 to 11. He has a repeat CT head this morning, which shows EVD in place, but CT is otherwise rather unchanged. On exam this morning, the patient will open his eyes to stimulation and is moving his right side spontaneously and localizing as well. He has no motor function on the left. This is consistent with his prior exams. We change EVD setting to 0 CM H2). He should remain on Ancef 2 g q.8 and this should be continued as long as the EVD remains in place. We will monitor his progress closely. Job ID: [id number] [facility]
[2019-06-13] MEDS: Ascorbic Acid 500 mg Chewable Tablet PO SCH ×2 (08:55→17:08)
[2019-06-13] MEDS: Ferrous Sulfate 325 MG TAB PO SCH ×2 (08:55→16:33)
[2019-06-13] MEDS: Spironolactone 25 MG TAB PO SCH ×2 (08:55→17:07)
[2019-06-13] MEDS: Saccharomyces boulardii 250 MG CAP PO SCH ×2 (08:56→21:55)
[2019-06-13] MEDS: Bisacodyl 10 MG SUPP PR SCH (08:56)
[2019-06-13] MEDS: levETIRAcetam 500 mg/5 ml Oral Solution PO SCH ×2 (08:56→21:55)
[2019-06-13] MEDS: Amantadine HCl 100 mg Capsule PO SCH ×2 (08:56→21:55)
[2019-06-13] MEDS: Famotidine 20 MG TAB PER TUBE SCH ×2 (08:56→21:55)
[2019-06-13] MEDS: Metoprolol Tartrate 50 MG TAB PO SCH ×2 (09:00→21:56)
--- NOTE | 2019-06-13 09:15 | PRG ---
DATE OF SERVICE: 06/13/2019 Mr. Lu is neurologically unchanged. Yesterday based on the worsening of the CT scan, we placed a left frontal ventriculostomy. In the course of the placement, we did drain the hygroma, which was under some pressure. The ventricular system, however, was not under pressure upon cannulation. The ventriculostomy has been set at a level of 10 cm and very little CSF has been drained in this fashion. Dropping the ventriculostomy does increase the drainage significantly. A repeat CT scan was performed today. It shows no meaningful radiographic improvement at this point. IMPRESSION AND PLAN: Continue ventricular drainage. We will drop the level of drainage to 0 cm of water. Job ID: [id number]
[2019-06-13] MEDS: Insulin Regular 300 UNITS/3 ML VIAL SC PRN (12:15)
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
[2019-06-14] MEDS: Acetaminophen 650 MG/20.3 ML UDCUP PER TUBE SCH ×4 (03:05→21:47)
[2019-06-14] MEDS: cloNIDine 0.2 MG TAB PO SCH ×4 (03:05→23:08)
[2019-06-14 03:52] LABS: #Eosinphils 0.7 thou/uL (0.0-0.7); #Lymphocytes 1.9 thou/uL (1.20-3.40); #Monocytes 0.8 thou/uL (0.11-0.59); #Neutrophils 9.7 thou/uL (1.40-6.50); %Basophils 0.2 % (0.0-1.0); %Lymphocytes 14.7 % (21.0-51.0); %Monocytes 6.3 % (0.0-10.0); %Neutrophils 73.9 % (42.0-75.0); Hemoglobin 11.6 g/dL (14.0-18.0); Mean Corpuscular HGB CONC 32.6 g/dL (32.0-36.0); Mean Corpuscular Hemoglobin 30.7 pg (27.0-31.0); Mean Corpuscular Volume 94.4 fL (78.0-98.0); Mean Platelet Volume 7.3 fL (7.4-10.4); Platelet Count 280 thou/uL (130-400); RBC Distribution Width 14.1 % (11.5-14.5); Red Blood Cell (RBC) Count 3.79 mill/uL (4.70-6.10); White Blood Cell (WBC) Count 13.2 thou/uL (4.8-10.8)
[2019-06-14 04:18] LABS: Anion Gap 13 mmol/L (10-20); BUN (Urea Nitrogen) 25 mg/dL (8.9-20.6); Calc. Creatinine Clearance 166 mL/min (70-130); Carbon Dioxide 23 mmol/L (22-29); Chloride 112 mmol/L (98-107); Estimated GFR-MDRD Greater than 90; Glucose 148 mg/dL (70-105); Phosphorus 3.1 mg/dL (2.3-4.7); Potassium 3.7 mmol/L (3.5-5.1); Sodium 144 mmol/L (136-145)
[2019-06-14] MEDS: CEFAZOLIN 2 GM in Premix Bag 1 BAG IVPB SCH ×3 (05:33→21:47)
[2019-06-14] MEDS: Amantadine HCl 100 mg Capsule PO SCH ×2 (09:03→21:48)
[2019-06-14] MEDS: Ascorbic Acid 500 mg Chewable Tablet PO SCH ×2 (09:03→16:56)
[2019-06-14] MEDS: Saccharomyces boulardii 250 MG CAP PO SCH ×2 (09:03→21:48)
[2019-06-14] MEDS: Metoprolol Tartrate 50 MG TAB PO SCH ×2 (09:03→21:48)
[2019-06-14] MEDS: Ferrous Sulfate 325 MG TAB PO SCH ×2 (09:03→16:56)
[2019-06-14] MEDS: Famotidine 20 MG TAB PER TUBE SCH ×2 (09:04→21:47)
[2019-06-14] MEDS: Spironolactone 25 MG TAB PO SCH ×2 (09:04→16:57)
[2019-06-14] MEDS: levETIRAcetam 500 mg/5 ml Oral Solution PO SCH ×2 (09:04→21:47)
--- NOTE | 2019-06-14 09:07 | PRG ---
DATE OF SERVICE: 06/14/2019 SUBJECTIVE: I examined the patient on the floor. His EVD setting was changed to 0 cm of water yesterday afternoon. Shortly after on dropping to 0, patient had significant output from the EVD 70 mL. Since then, his EVD output has been fluctuating and seems dependent on if he is coughing, agitated, or positioned on the left side. He has had anywhere from 10 to 45 mL out per hour. His ICP remains within normal limits. Nursing reports that they believe he is doing better neurologically and even followed by holding up two fingers on the right side. OBJECTIVE: On my exam today, the patient is moving his right side spontaneously and localizing. Right sided gaze preference EVD appears to be in place with clear CSF output. PLAN: We will continue current EVD settings at 0 cm of water. I discussed with the patients sister and addressed and her current questions using the wound/ostomy nurse service. I also removed craniotomy sutures and kimberly from laceration at the bedside. Job ID: [id number] [facility]
[2019-06-14] MEDS ORDERED: Potassium Phosphate 15 MMOL in Sodium Chloride 0.9% 250 ML 250 ML IVPB SCH (11:00)
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
[2019-06-14] MEDS: Insulin Regular 300 UNITS/3 ML VIAL SC PRN (21:49)
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
[2019-06-15] MEDS: cloNIDine 0.2 MG TAB PO SCH ×4 (03:05→21:12)
[2019-06-15] MEDS: Acetaminophen 650 MG/20.3 ML UDCUP PER TUBE SCH ×4 (03:05→20:53)
[2019-06-15 04:06] LABS: #Eosinphils 0.4 thou/uL (0.0-0.7); #Lymphocytes 1.8 thou/uL (1.20-3.40); #Monocytes 0.4 thou/uL (0.11-0.59); #Neutrophils 7.1 thou/uL (1.40-6.50); %Basophils 0.5 % (0.0-1.0); %Eosinophils 4.6 % (0.0-10.0); %Lymphocytes 18.2 % (21.0-51.0); %Monocytes 4.3 % (0.0-10.0); %Neutrophils 72.5 % (42.0-75.0); Hemoglobin 11.6 g/dL (14.0-18.0); Mean Corpuscular HGB CONC 32.5 g/dL (32.0-36.0); Mean Corpuscular Hemoglobin 30.7 pg (27.0-31.0); Mean Corpuscular Volume 94.7 fL (78.0-98.0); Mean Platelet Volume 7.5 fL (7.4-10.4); Platelet Count 288 thou/uL (130-400); RBC Distribution Width 14.3 % (11.5-14.5); Red Blood Cell (RBC) Count 3.76 mill/uL (4.70-6.10); White Blood Cell (WBC) Count 9.8 thou/uL (4.8-10.8)
[2019-06-15 04:31] LABS: Anion Gap 13 mmol/L (10-20); BUN (Urea Nitrogen) 17 mg/dL (8.9-20.6); Calc. Creatinine Clearance 179 mL/min (70-130); Calcium 8.9 mg/dL (7.8-10.44); Carbon Dioxide 21 mmol/L (22-29); Chloride 111 mmol/L (98-107); Estimated GFR-MDRD Greater than 90; Glucose 149 mg/dL (70-105); Magnesium 2.1 mg/dL (1.6-2.6); Phosphorus 2.9 mg/dL (2.3-4.7); Potassium 3.9 mmol/L (3.5-5.1); Sodium 141 mmol/L (136-145)
[2019-06-15] MEDS: CEFAZOLIN 2 GM in Premix Bag 1 BAG IVPB SCH ×3 (05:22→21:11)
--- NOTE | 2019-06-15 09:07 | PRG ---
DATE OF SERVICE: 06/15/2019 SUBJECTIVE: I examined the patient on the floor. His EVD setting remains at 0 cm of water. He continues to have fluctuating output anywhere from 3 to 40 depending on his position and agitation. His ICP has ranged from 3 to 10. I removed his sutures and kimberly yesterday. No incisional issues since. OBJECTIVE: On my exam today, the patient's eyes are open. He is localizing with the right upper extremity and moving his right leg spontaneously. This appears consistent with prior exam. Incisions are C/D/i. PLAN: We will continue current EVD settings. We will continue to monitor his progress closely. AM CT head ordered. Job ID: [id number] [facility]
[2019-06-15] MEDS: Ascorbic Acid 500 mg Chewable Tablet PO SCH ×2 (09:26→16:23)
[2019-06-15] MEDS: Ferrous Sulfate 325 MG TAB PO SCH ×2 (09:26→16:23)
[2019-06-15] MEDS: Saccharomyces boulardii 250 MG CAP PO SCH ×2 (09:26→20:52)
[2019-06-15] MEDS: Famotidine 20 MG TAB PER TUBE SCH ×2 (09:27→20:52)
[2019-06-15] MEDS: Spironolactone 25 MG TAB PO SCH ×2 (09:27→16:23)
[2019-06-15] MEDS: Metoprolol Tartrate 50 MG TAB PO SCH ×3 (09:27→23:35)
[2019-06-15] MEDS: levETIRAcetam 500 mg/5 ml Oral Solution PO SCH ×2 (09:27→20:52)
[2019-06-15] MEDS: Amantadine HCl 100 mg Capsule PO SCH ×2 (09:27→20:52)
--- NOTE | 2019-06-15 10:06 | PRG ---
DATE OF SERVICE: 06/15/2019 Mr. Lu is generally stable. We removed his sutures yesterday and the incision remains clean, dry, and intact. Ventricular drain is functional and draining more fluid at a level of 0 cm of water. We will obtain a CT scan in the morning. Job ID: [id number]
[2019-06-15] MEDS: Insulin Regular 300 UNITS/3 ML VIAL SC PRN (17:31)
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
[2019-06-16 04:10] LABS: #Eosinphils 0.5 thou/uL (0.0-0.7); #Monocytes 0.5 thou/uL (0.11-0.59); #Neutrophils 8.2 thou/uL (1.40-6.50); %Basophils 0.4 % (0.0-1.0); %Eosinophils 4.2 % (0.0-10.0); %Lymphocytes 17.7 % (21.0-51.0); %Monocytes 4.8 % (0.0-10.0); Hemoglobin 12.6 g/dL (14.0-18.0); Mean Corpuscular HGB CONC 32.8 g/dL (32.0-36.0); Mean Corpuscular Volume 94.5 fL (78.0-98.0); Mean Platelet Volume 8.9 fL (7.4-10.4); Platelet Count 269 thou/uL (130-400); RBC Distribution Width 14.4 % (11.5-14.5); Red Blood Cell (RBC) Count 4.06 mill/uL (4.70-6.10); White Blood Cell (WBC) Count 11.2 thou/uL (4.8-10.8)
[2019-06-16] MEDS: Acetaminophen 650 MG/20.3 ML UDCUP PER TUBE SCH ×4 (04:39→20:35)
[2019-06-16 04:42] LABS: Anion Gap 11 mmol/L (10-20); BUN (Urea Nitrogen) 18 mg/dL (8.9-20.6); Calc. Creatinine Clearance 163 mL/min (70-130); Calcium 9.5 mg/dL (7.8-10.44); Carbon Dioxide 26 mmol/L (22-29); Chloride 107 mmol/L (98-107); Estimated GFR-MDRD Greater than 90; Glucose 131 mg/dL (70-105); Magnesium 2.1 mg/dL (1.6-2.6); Phosphorus 3.3 mg/dL (2.3-4.7); Sodium 140 mmol/L (136-145)
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
[2019-06-16] MEDS: CEFAZOLIN 2 GM in Premix Bag 1 BAG IVPB SCH ×3 (05:44→21:01)
[2019-06-16] MEDS: cloNIDine 0.2 MG TAB PO SCH ×4 (05:45→23:02)
--- NOTE | 2019-06-16 07:40 | CT ---
PRELIMINARY REPORT/[facility]/EMERGENCY AFTER HOURS PROCEDURE: EXAM: CT Head Without Intravenous Contrast. CLINICAL HISTORY: F/U TECHNIQUE: Axial computed tomography images of the head/brain without intravenous contrast. COMPARISON: CT - CT BRAIN WO CON - 06/13/2019 04:09 AM CDT FINDINGS: BRAIN: There is a gyriform hemorrhage with vasogenic edema in the right frontal, temporal, and the parietal lobe, similar to prior examination. There is a mild midline shift to the right side, also decreased compared to prior examination. There is a left temporal frontal subdural fluid collection, similar to prior examination. However, small amount of left-sided subdural hematoma, slightly increased compared to prior examinati on. The left side subdural gas collection is not seen on today's examination. VENTRICLES: Bilateral lateral ventricles sulci smaller compared to prior examination. ORBITS: The orbits are unremarkable. SINUSES AND MASTOIDS: The paranasal sinuses and mastoid air cells are clear. SOFT TISSUES: No significant facial or scalp soft tissue swelling evident. No radiopaque foreign body is seen. BONES: No acute skull fracture. MISCELLANEOUS: There is a right-sided hemispheric herniation to the right frontotemporal craniotomy, slightly decrea sed compared to prior examination. The left ventricular shunt catheter seen without significant intervention. IMPRESSION: 1. There is a right-sided hemispheric herniation to the right frontotemporal craniotomy, slightly dec reased compared to prior examination. 2. There is a gyriform hemorrhage with vasogenic edema in the right frontal, temporal, and the pariet al lobe, similar to prior examination. 3. Bilateral lateral ventricles sulci smaller compared to prior examination. 4. There is a mild midline shift to the right side, also decreased compared to prior examination. 5. There is a left temporal frontal subdural fluid collection, similar to prior examination. 6. However, small amount of left-sided subdural hematoma, slightly increased compared to prior examin ation. 7. The left side subdural gas collection is not seen on today's examination. 8. The left ventricular shunt catheter seen without significant intervention. ELECTRONICALLY SIGNED BY: Thomas Nazario MD Jun 16, 2019 4:51:23 AM CDT This report is intended for review by the ordering physician only, in accordance of law. If you recei ve this report in error, please call [facility] at [phone]. FINAL REPORT EMERGENCY AFTER HOURS CT BRAIN: I agree with the preliminary report provided by [facility]. The intracerebral hematomas involvi ng the right parietal and right frontal region with herniation of brain through a large right frontop arietotemporal craniectomy is similar appearing. The [id number] midline shift is similar appearing . Ventriculoperitoneal shunt catheter entering through a left frontal bur hole is similar appearing. The left frontoparietal convexity subdural hematoma is largely stable appearing. The lateral ventricl e appears slightly less prominent. Basilar cisterns remain patent. Complete opacification of the righ t mastoid air cells and right temporal bone fracture is similar appearing. Air fluid level within the sphenoid sinus is similar appearing. POS: [facility]
[2019-06-16] MEDS: Ferrous Sulfate 325 MG TAB PO SCH ×2 (07:49→16:41)
[2019-06-16] MEDS: Ascorbic Acid 500 mg Chewable Tablet PO SCH ×2 (07:49→16:41)
[2019-06-16] MEDS: Spironolactone 25 MG TAB PO SCH ×2 (07:49→16:41)
[2019-06-16] MEDS: Metoprolol Tartrate 50 MG TAB PO SCH ×2 (08:58→21:01)
[2019-06-16] MEDS: Famotidine 20 MG TAB PER TUBE SCH ×2 (08:58→20:35)
[2019-06-16] MEDS: Amantadine HCl 100 mg Capsule PO SCH ×2 (08:58→20:35)
[2019-06-16] MEDS: levETIRAcetam 500 mg/5 ml Oral Solution PO SCH ×2 (08:58→20:34)
[2019-06-16] MEDS: Saccharomyces boulardii 250 MG CAP PO SCH ×2 (08:58→20:35)
[2019-06-16] MEDS ORDERED: Nystatin 500,000 UNITS/5 ML UDCUP SSP SCH (10:30)
--- NOTE | 2019-06-16 10:41 | PRG ---
DATE OF SERVICE: 06/16/2019 SUBJECTIVE: Mr. Lu is 4 days status post left EVD placement. EVD is open at a level of 0 cm of water and is draining an average of 6 to 8 mL/h. Repeat CT of the brain without contrast was completed this morning that shows EVD drain with good placement within the left lateral ventricle. There is a left-sided hygroma present, however, the bilateral lateral ventricles are smaller in size compared to prior studies. Midline shift from left to right has improved. Hemorrhage and vasogenic edema remain present in the right frontal, temporal, and parietal lobes with somewhat decreased herniation through the craniotomy site compared to prior examinations. Neurologically, the patient's physical exam remains unchanged. He continues to localize with the right arm and has spontaneous movement of the right arm and leg. The patient is noted to display automatisms such as blinking and smacking of the lips. Pupils are not equal, with left pupil dilated at 5 mm and right pupil at 3 mm. PLAN: At this time is to leave the EVD set to drain at 0 cm of water. We will take the patient to the OR on Sunday morning for internalization of shunt on the left and replacement of the skull bone on the right. The patient's nurse was updated with this plan and asked to update the patient's family. We will re-evaluate the patient in the morning, at which time, we will obtain a CSF sample from the EVD bag. Please call with any neurologic changes or other concerns. Job ID: [id number] [facility]
[2019-06-16] MEDS: Insulin Regular 300 UNITS/3 ML VIAL SC PRN ×3 (11:28→21:29)
[2019-06-16] MEDS: Nystatin 500,000 UNITS/5 ML UDCUP SSP SCH ×2 (15:33→20:34)
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
[2019-06-16] MEDS: Tamsulosin HCl 0.4 MG CAP PO SCH (20:35)
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
[2019-06-17] MEDS: cloNIDine 0.2 MG TAB PO SCH ×4 (03:36→22:43)
[2019-06-17] MEDS: Acetaminophen 650 MG/20.3 ML UDCUP PER TUBE SCH ×4 (03:36→20:49)
[2019-06-17 04:17] LABS: #Eosinphils 0.5 thou/uL (0.0-0.7); #Lymphocytes 2.1 thou/uL (1.20-3.40); #Monocytes 0.7 thou/uL (0.11-0.59); #Neutrophils 6.7 thou/uL (1.40-6.50); %Basophils 0.4 % (0.0-1.0); %Lymphocytes 21.1 % (21.0-51.0); %Monocytes 6.6 % (0.0-10.0); Hemoglobin 12.9 g/dL (14.0-18.0); Mean Corpuscular HGB CONC 31.5 g/dL (32.0-36.0); Mean Corpuscular Hemoglobin 29.7 pg (27.0-31.0); Mean Corpuscular Volume 94.3 fL (78.0-98.0); Mean Platelet Volume 9.2 fL (7.4-10.4); Platelet Count 268 thou/uL (130-400); RBC Distribution Width 14.3 % (11.5-14.5); Red Blood Cell (RBC) Count 4.35 mill/uL (4.70-6.10)
[2019-06-17 04:38] LABS: Anion Gap 14 mmol/L (10-20); BUN (Urea Nitrogen) 21 mg/dL (8.9-20.6); Calc. Creatinine Clearance 161 mL/min (70-130); Calcium 9.8 mg/dL (7.8-10.44); Carbon Dioxide 26 mmol/L (22-29); Chloride 104 mmol/L (98-107); Estimated GFR-MDRD Greater than 90; Glucose 121 mg/dL (70-105); Magnesium 2.2 mg/dL (1.6-2.6); Phosphorus 3.3 mg/dL (2.3-4.7); Potassium 4.4 mmol/L (3.5-5.1); Sodium 140 mmol/L (136-145)
[2019-06-17] MEDS: CEFAZOLIN 2 GM in Premix Bag 1 BAG IVPB SCH ×3 (05:16→22:43)
[2019-06-17] MEDS: Insulin Regular 300 UNITS/3 ML VIAL SC PRN ×3 (06:17→21:11)
[2019-06-17 07:54] LABS: Color Of CSF Supernatant COLORLESS (Colorless); Unspun CSF Color COLORLESS (Colorless)
[2019-06-17 07:55] LABS: Tube # 1
[2019-06-17 08:09] LABS: CSF, Glucose 93 mg/dl (40-70); CSF, Protein 30 mg/dL (15-40)
[2019-06-17 08:14] LABS: CSF Source CSF; Clarity Clear (Clear)
[2019-06-17] MEDS: Spironolactone 25 MG TAB PO SCH ×2 (09:18→16:29)
[2019-06-17] MEDS: Metoprolol Tartrate 50 MG TAB PO SCH ×2 (09:18→20:50)
[2019-06-17] MEDS: Famotidine 20 MG TAB PER TUBE SCH ×2 (09:18→20:50)
[2019-06-17] MEDS: Amantadine HCl 100 mg Capsule PO SCH ×2 (09:18→20:50)
[2019-06-17] MEDS: Saccharomyces boulardii 250 MG CAP PO SCH ×2 (09:18→20:49)
[2019-06-17] MEDS: Ferrous Sulfate 325 MG TAB PO SCH ×2 (09:18→16:29)
[2019-06-17] MEDS: Ascorbic Acid 500 mg Chewable Tablet PO SCH ×2 (09:18→16:29)
[2019-06-17] MEDS: Nystatin 500,000 UNITS/5 ML UDCUP SSP SCH ×3 (09:19→20:49)
[2019-06-17] MEDS: levETIRAcetam 500 mg/5 ml Oral Solution PO SCH ×2 (09:19→20:50)
[2019-06-17] MEDS ORDERED: VANCOMYCIN IVPB PRN (09:54)
[2019-06-17] MEDS ORDERED: Vancomycin 1 GM in Premix Bag 1 BAG IVPB SCH (10:00)
[2019-06-17 10:17] LABS: CSF, Glucose 92 mg/dl (40-70); CSF, Protein 33 mg/dL (15-40)
[2019-06-17 10:27] LABS: CSF Source CSF
--- NOTE | 2019-06-17 10:38 | PRG ---
DATE OF SERVICE: 06/17/2019 Mr. Lu is now 32 days into his hospitalization and 30 days following his craniectomy. He continues to demonstrate more movement of the left arm and continued brisk movement in localization fashion of the right arm. His EVD has been tenuous in its function, but when I dropped it to the ground, it does release CSF. I would like to release 10 to 15 mL/h and I have discussed this with the nurses. We will keep it open to 0, but if necessary drop it to the floor to drain that amount. Certainly when I do it, I was optimistic about going to surgery on Sunday to replace his bone flap. However, culture from the CSF that we have sent today has demonstrated gram-positive cocci. This could be a contaminant, however, because his laboratory assessment demonstrates 93 for the glucose, which argues against a bacterial infection and protein that is certainly not elevated, but in the normal range. As such, this may be a spurious result. We will send another one. I have updated his that it is going to take time to know how well he is going to do, but he continues to demonstrate small amounts of progress and I think this will be augmented by replacement of his bone flap and shunt. I also consented her regarding replacement of bone flap and shunt. Now obviously, if he ends up having a positive CSF culture, then we will need to postpone replacement of the bone flap and placement of shunt until the CSF is cleared in the next week or 2. . Job ID: [id number]
--- NOTE | 2019-06-17 13:57 | CT ---
CT Brain WO Con: 06/17/2019 12:42 PM CLINICAL HISTORY: Follow-up intracranial hemorrhage. IMAGING TECHNIQUE: Multiple CT images were obtained of the brain without IV contrast. COMPARISON: CT of the brain dated 06/16/2019 FINDINGS: Brain: The areas of intracranial hemorrhage involving the right parietal region and right frontal re gion are largely stable. Herniation of cerebral cortex through a right frontal parietal craniectomy site is similar appearing. The [id number] midline shift of approximately 1 1 to 1.2 cm is similar appearing. Subdural hematoma overlying the left frontal parietal convexity is stable appearing. There is been interval revision of the left frontal ventricular catheter now the tip of the catheter projecting in the region of the proximal brainstem. Ventricles: There is stable slight prominence of the anterior horn of the right lateral ventricle. Th e remaining ventricles appear decompressed. Skull: Right frontoparietal craniectomy is unchanged. The right-sided temporal bone fracture is uncha nged. Visualized Paranasal sinuses: There is an air-fluid level within the sphenoid sinus which is stable. Mastoid air cells:Opacification right mastoid air cells stable. Extracranial soft tissues:Normal. IMPRESSION: Interval exchange of the left frontal intraventricular catheter. The tip is now advanced to the level of the third ventricle and projects in the region of the proximal brainstem. Areas of intracranial hemorrhage and surrounding vasogenic edema involving the right frontal and francesco etal lobes with herniation of cerebral cortex are right frontal parietal craniectomy site is similar appearing. The [id number] midline shift is stable. Subdural hematoma overlying the left fr ontal parietal convexity is stable appearing.
[2019-06-17] MEDS ORDERED: Lidocaine 1% (PF) 30 ML VIAL ONE (14:25)
[2019-06-17] MEDS ORDERED: Lidocaine 1% (PF) 30 ML VIAL IJ SCH (16:00)
[2019-06-17] MEDS: Vancomycin HCl 1.25 GM in Sodium Chloride 0.9% 250 ML 250 ML IVPB SCH (17:29)
[2019-06-17] MEDS: Tamsulosin HCl 0.4 MG CAP PO SCH (20:50)
[2019-06-17] MEDS ORDERED: Tamsulosin HCl 0.4 MG CAP PO SCH (21:00)
[2019-06-17] MEDS ORDERED: Vancomycin 1.5 GRAM/300 ML BAG 1.5 GM in Premix Bag 1 BAG IVPB SCH (21:00)
[2019-06-18] MEDS: Vancomycin HCl 1.25 GM in Sodium Chloride 0.9% 250 ML 250 ML IVPB SCH (02:34)
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
[2019-06-18] MEDS: Acetaminophen 650 MG/20.3 ML UDCUP PER TUBE SCH ×4 (04:04→20:07)
[2019-06-18] MEDS: CEFAZOLIN 2 GM in Premix Bag 1 BAG IVPB SCH ×3 (05:11→21:34)
[2019-06-18] MEDS: cloNIDine 0.2 MG TAB PO SCH ×4 (05:11→21:34)
[2019-06-18] MEDS: Spironolactone 25 MG TAB PO SCH ×2 (08:55→16:30)
[2019-06-18] MEDS: Ascorbic Acid 500 mg Chewable Tablet PO SCH ×2 (08:55→17:34)
[2019-06-18] MEDS: Saccharomyces boulardii 250 MG CAP PO SCH ×2 (09:04→20:11)
[2019-06-18] MEDS: levETIRAcetam 500 mg/5 ml Oral Solution PO SCH ×2 (09:04→20:07)
[2019-06-18] MEDS: Ferrous Sulfate 325 MG TAB PO SCH ×2 (09:05→16:30)
[2019-06-18] MEDS: Famotidine 20 MG TAB PER TUBE SCH ×2 (09:05→20:07)
[2019-06-18] MEDS: Metoprolol Tartrate 50 MG TAB PO SCH ×2 (09:07→20:07)
[2019-06-18] MEDS: Amantadine HCl 100 mg Capsule PO SCH ×2 (09:07→20:17)
--- NOTE | 2019-06-18 09:25 | PRG ---
DATE OF SERVICE: 06/18/2019 Mr. Lu continues beyond 30 days of his hospitalization. Two CSF samples yesterday from the prior EVD catheter demonstrated few gram-positive cocci and while he has been afebrile with no leukocytosis, and evaluation of his CSF demonstrates no findings for bacterial meningitis or ventriculitis with glucose in the 90s and protein in the 30s. I opted for replacement of a catheter as my suspicion was it may have been colonized with the patient was an infected. Nevertheless, he has been transitioned to vancomycin. We have replaced again the catheter. We have sent CSF again this morning. He does move his right arm even more this morning and is holding onto a rack and tends to look back and forth in the room with his eyes closed. Again, his flap is softer. We are going to continue to pursue shunt placement on Sunday with replacement of bone flap unless these new cultures demonstrate clear positivity in the CSF. Job ID: [id number]
[2019-06-18 09:44] LABS: Vancomycin, Trough 14.1 ug/mL
--- NOTE | 2019-06-18 10:27 | OP ---
DATE OF PROCEDURE: 06/17/2019 PREPROCEDURE DIAGNOSIS: Concern of colonized ventricular catheter with need for replacement due to hydrocephalus via left frontal approach. POSTPROCEDURE DIAGNOSIS: Concern of colonized ventricular catheter with need for replacement due to hydrocephalus via left frontal approach. PROCEDURE PERFORMED: Placement of a new left frontal external ventricular drain for ventricular puncture and diagnostic and therapeutic evaluation and management of hydrocephalus. DESCRIPTION OF PROCEDURE: After informed consent was obtained from the family, the patient was positioned. The area was sterilely cleansed, prepared, and draped. Prior catheter was removed. Local anesthetic was infiltrated. The prior wound was then opened and the prior drill hole identified and cleared of any dura or bone dust. A new catheter was then placed with return of clear and yellowish CSF. This was secured to a new drain system and to the patient's scalp. This was again sterilely cleansed, prepared, and draped before sealing. Job ID: [id number]
[2019-06-18] MEDS: Nystatin 500,000 UNITS/5 ML UDCUP SSP SCH ×3 (11:30→20:16)
[2019-06-18] MEDS: Vancomycin 1.5 GRAM/300 ML BAG 1.5 GM in Premix Bag 1 BAG IVPB SCH ×2 (11:55→20:02)
[2019-06-18 11:58] LABS: CSF Source CSF; Clarity Hazy (Clear)
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
[2019-06-18] MEDS: Insulin Regular 300 UNITS/3 ML VIAL SC PRN ×2 (18:46→20:36)
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
[2019-06-18] MEDS: Tamsulosin HCl 0.4 MG CAP PO SCH (20:07)
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
[2019-06-19] MEDS: Vancomycin 1.5 GRAM/300 ML BAG 1.5 GM in Premix Bag 1 BAG IVPB SCH ×3 (02:50→20:35)
[2019-06-19] MEDS: Acetaminophen 650 MG/20.3 ML UDCUP PER TUBE SCH ×4 (02:51→21:05)
[2019-06-19] MEDS: cloNIDine 0.2 MG TAB PO SCH ×4 (03:00→21:06)
[2019-06-19] MEDS: CEFAZOLIN 2 GM in Premix Bag 1 BAG IVPB SCH ×2 (06:21→20:45)
[2019-06-19] MEDS: Insulin Regular 300 UNITS/3 ML VIAL SC PRN ×3 (06:26→21:06)
[2019-06-19] MEDS: Ascorbic Acid 500 mg Chewable Tablet PO SCH ×2 (07:58→16:32)
[2019-06-19] MEDS: Ferrous Sulfate 325 MG TAB PO SCH ×2 (08:02→16:32)
[2019-06-19] MEDS: Nystatin 500,000 UNITS/5 ML UDCUP SSP SCH ×3 (08:03→21:06)
[2019-06-19] MEDS: Saccharomyces boulardii 250 MG CAP PO SCH ×2 (08:03→21:05)
[2019-06-19] MEDS: Famotidine 20 MG TAB PER TUBE SCH ×2 (08:03→21:05)
[2019-06-19] MEDS: Metoprolol Tartrate 50 MG TAB PO SCH ×2 (08:03→21:05)
[2019-06-19] MEDS: Spironolactone 25 MG TAB PO SCH ×2 (08:03→16:32)
[2019-06-19] MEDS: levETIRAcetam 500 mg/5 ml Oral Solution PO SCH ×2 (08:25→21:05)
[2019-06-19] MEDS: Amantadine HCl 100 mg Capsule PO SCH ×2 (09:20→21:05)
[2019-06-19 10:23] LABS: Vancomycin, Trough 24.1 ug/mL
--- NOTE | 2019-06-19 12:52 | CT ---
CT Brain WO Con: 06/19/2019 11:22 AM CLINICAL HISTORY: Follow-up craniectomy. IMAGING TECHNIQUE: Multiple CT images were obtained of the brain without IV contrast. COMPARISON: CT the brain without contrast dated June 17, 2019 FINDINGS: Brain: The hemorrhage involving the right parietal lobe, right temporal lobe and right frontal lobe appears relatively stable. Herniation of brain contents the right parietal frontal craniectomy site is similar appearing. There is been interval revision of the left frontal ventricular catheter. The t ip is now present within the right lateral ventricle anterior horn. There is small amount of pneumocephalus within the anterior left frontal cranial fossa. Subdural hematoma overlying the left f rontal region similar appearing. The left right midline shift is stable measuring 1.2 cm. Prominence of the temporal horn of the right lateral ventricle appears slightly less. Ventricles: As above Skull: The right temporal bone fracture is unchanged. Right frontal parietal craniectomy similar appe aring. The right parietal skull fracture is stable appearing. Left frontal duane hole is similar appearing. Visualized Paranasal sinuses: Air-fluid level within the sphenoid sinus is stable. Mastoid air cells:There is stable complete opacification of the right mastoid air cells. Extracranial soft tissues:Normal. IMPRESSION: Interval revision of the left frontal duane hole ventricular catheter. Small amount of pneumocephalus seen within the anterior left frontal cranial fossa. Slight improvement of the right lateral ventricle temporal horn trapping when compared to the prior. Stable intraparenchymal contusions of the right cerebral hemisphere with herniation of brain contents from a right parietal craniectomy site. Stable [id number] midline shift. Stable extra-axial subdural hematoma overlying the left frontal convexity. Stable right temporal and parietal skull fractures.
--- NOTE | 2019-06-19 13:24 | PRG ---
DATE OF SERVICE: 06/19/2019 Mr. Lu's culture of the CSF remains negative for microbial growth. His two prior fluid analyses demonstrated Staphylococcus haemolyticus, rare growth. I think this was a contaminant of the drain system and potentially catheter as after a completely new system was placed his CSF is unremarkable. He has been afebrile, hemodynamically stable. I would like to discontinue the cefazolin which I have ordered and initiate vancomycin instead given that we will be doing a shunt tomorrow. We will plan shunting and placement of his bone flap tomorrow morning. I consented his earlier this week. I should note he is putting approximately 10 to 15 mL out hourly of his drain, and while he does not open his eyes, he moves his right upper extremity more spontaneously and fidgets with certain things moving the right side spontaneously with the expected left-sided movement being less. He does have good tone, however, in his left side. Job ID: [id number]
[2019-06-19] MEDS: Vancomycin HCl 1.25 GM in Sodium Chloride 0.9% 250 ML 250 ML IVPB SCH (20:45)
[2019-06-19] MEDS: Tamsulosin HCl 0.4 MG CAP PO SCH (21:05)
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
[2019-06-20] MEDS: cloNIDine 0.2 MG TAB PO SCH ×4 (03:32→21:58)
[2019-06-20] MEDS: Vancomycin 1.5 GRAM/300 ML BAG 1.5 GM in Premix Bag 1 BAG IVPB SCH ×2 (03:32→12:30)
[2019-06-20] MEDS: Acetaminophen 650 MG/20.3 ML UDCUP PER TUBE SCH ×4 (03:32→21:59)
[2019-06-20] MEDS ORDERED: Bacitracin Zinc Ointment 30 gm TUBE ONE (06:33)
[2019-06-20] MEDS ORDERED: Thrombin 5000 UNITS/5 ML VIAL ONE (06:33)
[2019-06-20] MEDS ORDERED: Lidocaine 0.5%/Epinephrine 1:200,000 50 ml Vial ONE (06:33)
[2019-06-20] MEDS ORDERED: Lidocaine 1% w/Epinephrine 1:100K 20 ML VIAL ONE (06:45)
[2019-06-20] MEDS ORDERED: Midazolam HCl 5 mg/5 ml Vial ONE (07:29)
[2019-06-20] MEDS ORDERED: Vecuronium 10 MG VIAL ONE ×2 (07:30→12:55)
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
[2019-06-20] MEDS ORDERED: Fentanyl 100 MCG/2 ML VIAL ONE ×3 (08:01→10:38)
[2019-06-20] MEDS ORDERED: Bupivacaine PF 0.5% 30 ML VIAL ONE (08:32)
[2019-06-20] MEDS: Spironolactone 25 MG TAB PO SCH ×2 (08:34→16:18)
[2019-06-20] MEDS: Ascorbic Acid 500 mg Chewable Tablet PO SCH ×2 (08:34→16:18)
[2019-06-20] MEDS: Ferrous Sulfate 325 MG TAB PO SCH ×2 (08:34→16:18)
[2019-06-20] MEDS: Saccharomyces boulardii 250 MG CAP PO SCH ×2 (08:35→21:58)
[2019-06-20] MEDS: Nystatin 500,000 UNITS/5 ML UDCUP SSP SCH ×2 (08:35→16:18)
[2019-06-20] MEDS: Amantadine HCl 100 mg Capsule PO SCH ×2 (09:00→21:59)
[2019-06-20] MEDS: Metoprolol Tartrate 50 MG TAB PO SCH ×2 (09:00→21:58)
[2019-06-20] MEDS: Famotidine 20 MG TAB PER TUBE SCH ×2 (09:00→21:57)
[2019-06-20] MEDS: levETIRAcetam 500 mg/5 ml Oral Solution PO SCH ×2 (09:00→21:57)
[2019-06-20] MEDS ORDERED: Morphine 4 MG/ML VIAL SLOW IVP PRN (09:22)
[2019-06-20] MEDS ORDERED: Phenylephrine 10 MG/ML VIAL ONE (09:48)
[2019-06-20] MEDS ORDERED: PHENYLEPHRINE-NS 100 MCG/ML 10 ML SYRINGE ONE ×2 (10:13→12:55)
--- NOTE | 2019-06-20 12:06 | CT ---
Exam: Head CT without contrast HISTORY: Status post right cranioplasty and left [employer] shunting. COMPARISON: 06/19/2019 FINDINGS: Hemorrhage: Redemonstration of intracranial hemorrhage. Brain parenchyma: Stable herniation of brain parenchyma at the level of a right frontotemporal cranio estrada defect. Previous flap has been replaced with [place] calvarium. There are expected postoperative changes in the overlying soft tissues. There is pneumocephalus underneath the calvarial cranioplasty flap.Stable left frontotemporal subdural collection with mass effect upon the left cerebrum. 0.6 cm of left to right subfalcine herniation. Effacement of the basilar cisterns. Effaceme nt of the right ambient cistern suggesting component of right uncal herniation. Ventricular system: Decompressed ventricular system secondary to ventriculoperitoneal shunt catheter via the left frontal approach. Tip position is unchanged. Calvarium: Postsurgical changes as described above. Sinuses and mastoid air cells: Complete opacification of the right mastoid air cells. Partial opacifi cation of the right sphenoid sinus. IMPRESSION: Postoperative changes as described above. Transcribed Date/Time: 06/20/2019 12:15 PM
[2019-06-20] MEDS ORDERED: Glycopyrrolate 0.2 MG/ML 5 ML SYRINGE ONE (12:55)
[2019-06-20] MEDS ORDERED: PROPOFOL 200 MG/20 ML VIAL ONE (12:55)
[2019-06-20] MEDS ORDERED: Ondansetron PF 4 MG/2 ML Vial ONE (12:55)
[2019-06-20] MEDS ORDERED: Dexamethasone 20 MG/5 ML VIAL ONE (12:55)
[2019-06-20] MEDS ORDERED: EPHEDRINE 25 MG/5 ML SYRINGE ONE (12:55)
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
[2019-06-20 13:38] LABS: Anion Gap 15 mmol/L (10-20); BUN (Urea Nitrogen) 20 mg/dL (8.9-20.6); Calc. Creatinine Clearance 138 mL/min (70-130); Calcium 9.8 mg/dL (7.8-10.44); Carbon Dioxide 21 mmol/L (22-29); Chloride 106 mmol/L (98-107); Estimated GFR-MDRD Greater than 90; Glucose 187 mg/dL (70-105); Magnesium 1.9 mg/dL (1.6-2.6); Phosphorus 4.5 mg/dL (2.3-4.7); Potassium 4.9 mmol/L (3.5-5.1); Sodium 137 mmol/L (136-145)
[2019-06-20 14:01] LABS: Vancomycin, Random 22.2 ug/mL (See Comment)
[2019-06-20] MEDS: Vancomycin HCl 1.25 GM in Sodium Chloride 0.9% 250 ML 250 ML IVPB SCH ×2 (14:50→21:57)
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
[2019-06-20] MEDS: Insulin Regular 300 UNITS/3 ML VIAL SC PRN (18:35)
[2019-06-20] MEDS: Tamsulosin HCl 0.4 MG CAP PO SCH (21:58)
[2019-06-21] MEDS: Nystatin 500,000 UNITS/5 ML UDCUP SSP SCH ×4 (01:09→21:48)
[2019-06-21] MEDS: Acetaminophen 650 MG/20.3 ML UDCUP PER TUBE SCH ×4 (03:13→20:21)
[2019-06-21] MEDS: cloNIDine 0.2 MG TAB PO SCH ×4 (05:49→21:48)
[2019-06-21 06:03] LABS: #Eosinphils 0.1 thou/uL (0.0-0.7); #Monocytes 1.3 thou/uL (0.11-0.59); #Neutrophils 7.7 thou/uL (1.40-6.50); %Basophils 0.4 % (0.0-1.0); %Eosinophils 0.9 % (0.0-10.0); %Lymphocytes 17.9 % (21.0-51.0); %Monocytes 11.6 % (0.0-10.0); %Neutrophils 69.2 % (42.0-75.0); Hemoglobin 11.8 g/dL (14.0-18.0); Mean Corpuscular HGB CONC 32.4 g/dL (32.0-36.0); Mean Corpuscular Hemoglobin 30.4 pg (27.0-31.0); Mean Corpuscular Volume 93.8 fL (78.0-98.0); Mean Platelet Volume 7.1 fL (7.4-10.4); Platelet Count 390 thou/uL (130-400); Red Blood Cell (RBC) Count 3.88 mill/uL (4.70-6.10); White Blood Cell (WBC) Count 11.2 thou/uL (4.8-10.8)
[2019-06-21 06:28] LABS: Anion Gap 14 mmol/L (10-20); BUN (Urea Nitrogen) 19 mg/dL (8.9-20.6); Calc. Creatinine Clearance 165 mL/min (70-130); Calcium 9.4 mg/dL (7.8-10.44); Carbon Dioxide 23 mmol/L (22-29); Chloride 106 mmol/L (98-107); Estimated GFR-MDRD Greater than 90; Glucose 138 mg/dL (70-105); Magnesium 1.8 mg/dL (1.6-2.6); Phosphorus 3.3 mg/dL (2.3-4.7); Potassium 3.5 mmol/L (3.5-5.1); Sodium 139 mmol/L (136-145)
[2019-06-21] MEDS: Vancomycin HCl 1.25 GM in Sodium Chloride 0.9% 250 ML 250 ML IVPB SCH ×3 (06:30→23:05)
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
[2019-06-21] MEDS ORDERED: Magnesium 2 GM/50 ML 2 GM in Premix Bag 1 BAG IVPB SCH (07:45)
[2019-06-21] MEDS ORDERED: Potassium Phosphate 15 MMOL in Sodium Chloride 0.9% 250 ML 250 ML IVPB SCH (07:45)
[2019-06-21] MEDS: Ascorbic Acid 500 mg Chewable Tablet PO SCH ×2 (09:12→16:49)
[2019-06-21] MEDS: Ferrous Sulfate 325 MG TAB PO SCH ×2 (09:12→16:49)
[2019-06-21] MEDS: Spironolactone 25 MG TAB PO SCH ×2 (09:12→16:49)
[2019-06-21] MEDS: Amantadine HCl 100 mg Capsule PO SCH ×2 (09:12→20:22)
[2019-06-21] MEDS: Famotidine 20 MG TAB PER TUBE SCH ×2 (09:13→20:21)
[2019-06-21] MEDS: levETIRAcetam 500 mg/5 ml Oral Solution PO SCH ×2 (09:13→20:21)
[2019-06-21] MEDS: Saccharomyces boulardii 250 MG CAP PO SCH ×2 (09:13→20:21)
[2019-06-21] MEDS: Metoprolol Tartrate 50 MG TAB PO SCH ×2 (09:13→20:21)
[2019-06-21] MEDS: Insulin Regular 300 UNITS/3 ML VIAL SC PRN ×2 (11:21→21:36)
[2019-06-21 13:37] LABS: Vancomycin, Trough 18.9 ug/mL
[2019-06-21] MEDS: Tamsulosin HCl 0.4 MG CAP PO SCH (20:21)
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
[2019-06-22] MEDS: cloNIDine 0.2 MG TAB PO SCH ×4 (04:40→21:28)
[2019-06-22] MEDS: Acetaminophen 650 MG/20.3 ML UDCUP PER TUBE SCH ×4 (04:40→21:12)
[2019-06-22] MEDS: Vancomycin HCl 1.25 GM in Sodium Chloride 0.9% 250 ML 250 ML IVPB SCH ×3 (06:51→21:13)
[2019-06-22] MEDS ORDERED: Potassium Phosphate 15 MMOL in Sodium Chloride 0.9% 250 ML 250 ML IVPB SCH (07:45)
--- NOTE | 2019-06-22 07:48 | PRG ---
DATE OF SERVICE: 06/22/2019 We saw Mr. Lu on rounds this morning in the ICU. He had a skull flap replaced on Sunday, and he is 2 days out from that surgery. He is well into his the 6th and even 7th week in the hospital now. Overnight nursing does not report any significant changes. His drain output from his subgaleal drain is quite low. I do not see fevers recorded among the electronically documented vital signs. Blood pressures have been between the 110s and 130s. On examination, Mr. Lu localizes quite briskly with the right upper extremities, lower on the left. Yesterday's lab show white blood cell count of 11.2 and a sodium of 139. Mr. Lu is on his trach collar with oxygen supplementation. He is back to his neurological baseline before this bone flap replacement and shunt placement. From our point of view, he can be moved out of the ICU. Job ID: [id number] MTDD
[2019-06-22] MEDS: Amantadine HCl 100 mg Capsule PO SCH ×2 (09:04→21:12)
[2019-06-22] MEDS: Spironolactone 25 MG TAB PO SCH ×2 (09:04→15:56)
[2019-06-22] MEDS: Ascorbic Acid 500 mg Chewable Tablet PO SCH ×2 (09:04→15:57)
[2019-06-22] MEDS: Ferrous Sulfate 325 MG TAB PO SCH ×2 (09:04→15:57)
[2019-06-22] MEDS: Metoprolol Tartrate 50 MG TAB PO SCH ×2 (09:05→21:13)
[2019-06-22] MEDS: Famotidine 20 MG TAB PER TUBE SCH ×2 (09:05→21:13)
[2019-06-22] MEDS: Saccharomyces boulardii 250 MG CAP PO SCH ×2 (09:05→21:13)
[2019-06-22] MEDS: levETIRAcetam 500 mg/5 ml Oral Solution PO SCH ×2 (09:05→21:13)
[2019-06-22] MEDS: Nystatin 500,000 UNITS/5 ML UDCUP SSP SCH ×4 (09:08→21:39)
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
[2019-06-22] MEDS: Tamsulosin HCl 0.4 MG CAP PO SCH (21:12)
[2019-06-22] MEDS: Insulin Regular 300 UNITS/3 ML VIAL SC PRN (21:34)
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
[2019-06-23] MEDS: Acetaminophen 650 MG/20.3 ML UDCUP PER TUBE SCH ×4 (03:35→21:20)
[2019-06-23] MEDS: cloNIDine 0.2 MG TAB PO SCH ×3 (04:26→16:07)
[2019-06-23 05:51] LABS: Vancomycin, Trough 15.1 ug/mL
[2019-06-23 08:07] LABS: Anion Gap 13 mmol/L (10-20); BUN (Urea Nitrogen) 13 mg/dL (8.9-20.6); Calc. Creatinine Clearance 0 mL/min (70-130); Carbon Dioxide 23 mmol/L (22-29); Chloride 105 mmol/L (98-107); Estimated GFR-MDRD Greater than 90; Glucose 129 mg/dL (70-105); Magnesium 1.7 mg/dL (1.6-2.6); Phosphorus 3.2 mg/dL (2.3-4.7); Potassium 3.9 mmol/L (3.5-5.1); Sodium 137 mmol/L (136-145)
[2019-06-23] MEDS: Spironolactone 25 MG TAB PO SCH ×2 (09:00→16:07)
[2019-06-23] MEDS: Metoprolol Tartrate 50 MG TAB PO SCH (09:00)
[2019-06-23] MEDS: Ascorbic Acid 500 mg Chewable Tablet PO SCH ×2 (09:00→16:07)
[2019-06-23] MEDS: Amantadine HCl 100 mg Capsule PO SCH ×2 (09:00→21:22)
[2019-06-23] MEDS: Saccharomyces boulardii 250 MG CAP PO SCH ×2 (09:00→21:22)
[2019-06-23] MEDS: Ferrous Sulfate 325 MG TAB PO SCH ×2 (09:00→16:07)
[2019-06-23] MEDS: Famotidine 20 MG TAB PER TUBE SCH ×2 (09:01→21:21)
[2019-06-23] MEDS: levETIRAcetam 500 mg/5 ml Oral Solution PO SCH ×2 (09:01→21:21)
[2019-06-23] MEDS: Nystatin 500,000 UNITS/5 ML UDCUP SSP SCH ×3 (09:01→21:20)
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
--- NOTE | 2019-06-23 11:06 | PRG ---
DATE OF SERVICE: 06/23/2019 Mr. Lu is now 3 days out from his shunt and replacement of bone flap. He continues to demonstrate small progress. He withdraws in the left leg more robustly and has his right arm drawn up near his neck. He stirs a bit more to voice. Overall, I am pleased with how he is doing. His ALLISON drain has been removed and a postoperative head CT on Sunday was satisfactory. We are working on placement at this point and I should note that we are working on placement at this point. Job ID: [id number]
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
[2019-06-23] MEDS: Insulin Regular 300 UNITS/3 ML VIAL SC PRN (18:03)
[2019-06-23] MEDS: Tamsulosin HCl 0.4 MG CAP PO SCH (21:22)
[2019-06-24] MEDS: cloNIDine 0.2 MG TAB PO SCH ×5 (01:37→21:08)
[2019-06-24] MEDS: Metoprolol Tartrate 50 MG TAB PO SCH ×3 (01:37→21:08)
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
[2019-06-24] MEDS: Acetaminophen 650 MG/20.3 ML UDCUP PER TUBE SCH ×4 (03:49→21:06)
--- NOTE | 2019-06-24 07:45 | PRG ---
DATE OF SERVICE: 06/24/2019 SUBJECTIVE: Mr. Lu is now day 36 into his hospital stay and is 4 days postop from a right skull flap replacement. He is now on the surgical floor. His heart rate has normalized to be 80s to 90s range, and his blood pressure remained stable with systolic in the 120s. He is afebrile. His last CSF culture has resulted no growth in 5 days. T he patient resting upon my arrival this morning. He had his eyes open spontaneously when I first walked into his room. He continues to have robust movement in his right arm and leg, with his right arm resting overhead this morning. Pupils are equal, round, reactive to light. His scalp incisions remain clean, dry, and intact with kimberly in place. No signs of infection and no drainage present. PLAN: The patient continues to await placement. We will continue to monitor him during his hospital stay. Please call for any neurologic changes or other concerns. Job ID: [id number] MTDD
[2019-06-24] MEDS: Ascorbic Acid 500 mg Chewable Tablet PO SCH ×2 (08:22→16:08)
[2019-06-24] MEDS: levETIRAcetam 500 mg/5 ml Oral Solution PO SCH ×2 (08:22→21:06)
[2019-06-24] MEDS: Saccharomyces boulardii 250 MG CAP PO SCH ×2 (08:22→21:06)
[2019-06-24] MEDS: Famotidine 20 MG TAB PER TUBE SCH ×2 (08:22→21:07)
[2019-06-24] MEDS: Amantadine HCl 100 mg Capsule PO SCH ×2 (08:22→21:06)
[2019-06-24] MEDS: Spironolactone 25 MG TAB PO SCH ×2 (08:23→16:09)
[2019-06-24] MEDS: Ferrous Sulfate 325 MG TAB PO SCH ×2 (08:23→16:09)
[2019-06-24] MEDS: Nystatin 500,000 UNITS/5 ML UDCUP SSP SCH ×3 (09:32→21:06)
[2019-06-24] MEDS ORDERED: Sodium Chloride For Inhalation 0.9% 3 ML NEB ONE (10:43)
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
[2019-06-24] MEDS: Tamsulosin HCl 0.4 MG CAP PO SCH (21:06)
[2019-06-25] MEDS: Acetaminophen 650 MG/20.3 ML UDCUP PER TUBE SCH ×4 (03:29→21:28)
[2019-06-25] MEDS: cloNIDine 0.2 MG TAB PO SCH ×4 (03:50→21:30)
[2019-06-25 06:07] LABS: #Eosinphils 0.2 thou/uL (0.0-0.7); #Lymphocytes 1.5 thou/uL (1.20-3.40); #Monocytes 0.7 thou/uL (0.11-0.59); #Neutrophils 6.7 thou/uL (1.40-6.50); %Basophils 0.4 % (0.0-1.0); %Eosinophils 2.3 % (0.0-10.0); %Lymphocytes 16.6 % (21.0-51.0); %Monocytes 7.1 % (0.0-10.0); %Neutrophils 73.6 % (42.0-75.0); Hemoglobin 11.6 g/dL (14.0-18.0); Mean Corpuscular HGB CONC 32.6 g/dL (32.0-36.0); Mean Corpuscular Hemoglobin 30.6 pg (27.0-31.0); Mean Corpuscular Volume 93.9 fL (78.0-98.0); Mean Platelet Volume 7.1 fL (7.4-10.4); Platelet Count 388 thou/uL (130-400); RBC Distribution Width 13.8 % (11.5-14.5); White Blood Cell (WBC) Count 9.1 thou/uL (4.8-10.8)
[2019-06-25 06:27] LABS: Anion Gap 14 mmol/L (10-20); BUN (Urea Nitrogen) 13 mg/dL (8.9-20.6); Calc. Creatinine Clearance 173 mL/min (70-130); Calcium 9.6 mg/dL (7.8-10.44); Carbon Dioxide 24 mmol/L (22-29); Chloride 101 mmol/L (98-107); Estimated GFR-MDRD Greater than 90; Glucose 129 mg/dL (70-105); Potassium 4.3 mmol/L (3.5-5.1); Sodium 135 mmol/L (136-145)
--- NOTE | 2019-06-25 09:31 | PRG ---
DATE OF SERVICE: 06/25/2019 Mr. Lu looks the best I have seen him throughout his hospital course, which has been almost 6 weeks. He opens his eyes to voice and looks at me. He does not track the examiner, but he certainly knows that I am there. He does respond to threat. His wounds are all healing well and he moves his right side spontaneously. His left arm has increased tone and has brought up with more movement there than I have seen. He keeps his eyes open throughout the exam. I am very pleased with how he looks at this point. We will continue to follow along closely. Job ID: [id number]
[2019-06-25] MEDS: Famotidine 20 MG TAB PER TUBE SCH ×2 (09:46→21:29)
[2019-06-25] MEDS: Saccharomyces boulardii 250 MG CAP PO SCH ×2 (09:46→21:31)
[2019-06-25] MEDS: Ascorbic Acid 500 mg Chewable Tablet PO SCH ×2 (09:47→17:55)
[2019-06-25] MEDS: Spironolactone 25 MG TAB PO SCH ×2 (09:47→17:55)
[2019-06-25] MEDS: Amantadine HCl 100 mg Capsule PO SCH ×2 (09:47→21:28)
[2019-06-25] MEDS: Metoprolol Tartrate 50 MG TAB PO SCH ×2 (09:47→21:31)
[2019-06-25] MEDS: Nystatin 500,000 UNITS/5 ML UDCUP SSP SCH ×3 (09:47→21:28)
[2019-06-25] MEDS: Ferrous Sulfate 325 MG TAB PO SCH ×2 (09:47→17:55)
[2019-06-25] MEDS: levETIRAcetam 500 mg/5 ml Oral Solution PO SCH ×2 (09:47→21:28)
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
[2019-06-25] MEDS: Tamsulosin HCl 0.4 MG CAP PO SCH (21:28)
[2019-06-25] MEDS ORDERED: Amantadine HCl 10 mg/ml Oral Solution PO SCH (21:45)
[2019-06-26] MEDS: Acetaminophen 650 MG/20.3 ML UDCUP PER TUBE SCH ×4 (03:23→20:54)
[2019-06-26] MEDS: cloNIDine 0.2 MG TAB PO SCH ×4 (03:23→21:04)
[2019-06-26] MEDS: Insulin Regular 300 UNITS/3 ML VIAL SC PRN (06:21)
[2019-06-26] MEDS: levETIRAcetam 500 mg/5 ml Oral Solution PO SCH ×2 (08:08→20:55)
[2019-06-26] MEDS: Famotidine 20 MG TAB PER TUBE SCH ×2 (08:14→20:54)
[2019-06-26] MEDS: Nystatin 500,000 UNITS/5 ML UDCUP SSP SCH ×3 (08:14→20:54)
[2019-06-26] MEDS: Ascorbic Acid 500 mg Chewable Tablet PO SCH ×2 (08:14→16:07)
[2019-06-26] MEDS: Spironolactone 25 MG TAB PO SCH ×2 (08:14→16:07)
[2019-06-26] MEDS: Metoprolol Tartrate 50 MG TAB PO SCH ×2 (08:14→20:54)
[2019-06-26] MEDS: Ferrous Sulfate 325 MG TAB PO SCH ×2 (08:14→16:06)
[2019-06-26] MEDS: Amantadine HCl 10 mg/ml Oral Solution PO SCH ×2 (08:14→21:14)
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
--- NOTE | 2019-06-26 14:40 | PRG ---
DATE OF SERVICE: 06/26/2019 SUBJECTIVE: Mr. Lu is now day 38 into his hospital stay and is 6 days postop after undergoing a right skull flap replacement. He has mild tachycardia with a max heart rate of 107 overnight. Otherwise, his vitals are stable and he remains afebrile. He is no longer requiring a trach collar and is breathing on room air. He was resting comfortably in bed upon my entering the room this morning. He does stir to both verbal and tactile stimuli. He continues to have spontaneous movement in the right upper and lower extremities, and he withdraws to touch in his left arm. Pupils are equal, round, and reactive to light. Scalp incisions remain clean, dry, and intact with kimberly in place. There are no signs of infection and no drainage present. Overall, the patient remains neurologically stable. PLAN: The patient continues to await placement. We will continue to monitor him during his hospital stay. Please call for any neurologic changes or other concerns. Job ID: [id number] [facility]
[2019-06-26] MEDS: Tamsulosin HCl 0.4 MG CAP PO SCH (20:54)
[2019-06-27] MEDS: Acetaminophen 650 MG/20.3 ML UDCUP PER TUBE SCH ×4 (02:49→21:16)
[2019-06-27] MEDS: cloNIDine 0.2 MG TAB PO SCH ×3 (04:16→16:03)
[2019-06-27] MEDS: Famotidine 20 MG TAB PER TUBE SCH ×2 (09:05→21:16)
[2019-06-27] MEDS: Spironolactone 25 MG TAB PO SCH ×2 (09:05→16:02)
[2019-06-27] MEDS: Ferrous Sulfate 325 MG TAB PO SCH ×2 (09:05→16:03)
[2019-06-27] MEDS: Ascorbic Acid 500 mg Chewable Tablet PO SCH ×2 (09:05→16:03)
[2019-06-27] MEDS: levETIRAcetam 500 mg/5 ml Oral Solution PO SCH ×2 (09:06→21:17)
[2019-06-27] MEDS: Metoprolol Tartrate 50 MG TAB PO SCH ×2 (09:06→21:16)
[2019-06-27] MEDS: Amantadine HCl 10 mg/ml Oral Solution PO SCH ×2 (09:07→21:26)
[2019-06-27] MEDS: Nystatin 500,000 UNITS/5 ML UDCUP SSP SCH ×3 (09:30→21:17)
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
[2019-06-27 12:34] VITALS: BMI 22.8
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
[2019-06-27] MEDS: Insulin Regular 300 UNITS/3 ML VIAL SC PRN (17:55)
[2019-06-27] MEDS: Tamsulosin HCl 0.4 MG CAP PO SCH (21:16)
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
--- NOTE | 2019-06-27 23:04 | PRG ---
DATE OF SERVICE: 06/27/2019 SUBJECTIVE: Mr. Lu is now approximately 5 1/2 weeks into his hospital stay and 7 days postop after undergoing a right skull flap replacement. The patient has remained neurologically stable. He has robust spontaneous movement in his right upper and lower extremities; however, continues to make improvements in movement of left upper extremity. PLAN: Patient will likely be discharged home tomorrow under care of his family. From a Neurosurgical standpoint, plan will be for patient to follow up at 3 weeks postop, at which time we will remove his scalp sutures. He is to remain on Keppra for a minimum of 3 months after surgery. Our team feels that he has made significant improvement during his hospital stay given the severity of his mechanism of injury, and we are encouraged that he will continue to improve over the upcoming months. Our team is available via phone call should the family have any questions or concerns prior to his postoperative followup. Job ID: [id number] [facility]
[2019-06-28] MEDS: Acetaminophen 650 MG/20.3 ML UDCUP PER TUBE SCH ×3 (03:02→15:50)
[2019-06-28] MEDS: Famotidine 20 MG TAB PER TUBE SCH (09:53)
[2019-06-28] MEDS: Ascorbic Acid 500 mg Chewable Tablet PO SCH (09:53)
[2019-06-28] MEDS: Ferrous Sulfate 325 MG TAB PO SCH (09:53)
[2019-06-28] MEDS: levETIRAcetam 500 mg/5 ml Oral Solution PO SCH (09:53)
[2019-06-28] MEDS: Spironolactone 25 MG TAB PO SCH (09:53)
[2019-06-28] MEDS: Metoprolol Tartrate 50 MG TAB PO SCH (09:53)
[2019-06-28] MEDS: Nystatin 500,000 UNITS/5 ML UDCUP SSP SCH ×2 (09:54→15:50)
[2019-06-28 10:48] VITALS: TEMP 97.7
[2019-06-28] MEDS: Amantadine HCl 10 mg/ml Oral Solution PO SCH (12:33)
[2019-06-28 15:35] VITALS: BP 125/88
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
== END 2019-06-28 15:53 | disposition home or self-care (01) | DRG 3 ==
LOC: ERS 04:08 → MERGE 04:49 → CCU 04:49 → EDBD 04:49 → CCU 07:37 → IMCU/EMU 06-04 10:56 → SURG A 06-05 14:27 → CCU 06-12 12:06 → SJJU 06-22 10:51
PROVIDERS: ADMIT Surgery; ATTEND Surgery
PROC: 0QSG06Z Reposition Right Tibia with Intramedullary Internal Fixation Device, Open Approach (ICD-10-PCS; 2019-05-17)
PROC: 0QSH06Z Reposition Left Tibia with Intramedullary Internal Fixation Device, Open Approach (ICD-10-PCS; 2019-05-17)
PROC: 0BH17EZ Insertion of Endotracheal Airway into Trachea, Via Natural or Artificial Opening (ICD-10-PCS; 2019-05-17)
PROC: 5A1955Z Respiratory Ventilation, Greater than 96 Consecutive Hours (ICD-10-PCS; 2019-05-17)
PROC: 30233N1 Transfusion of Nonautologous Red Blood Cells into Peripheral Vein, Percutaneous Approach (ICD-10-PCS; 2019-05-17)
PROC: 05H633Z Insertion of Infusion Device into Left Subclavian Vein, Percutaneous Approach (ICD-10-PCS; 2019-05-17)
PROC: 00B70ZZ Excision of Cerebral Hemisphere, Open Approach (ICD-10-PCS; 2019-05-18)
PROC: 00N00ZZ Release Brain, Open Approach (ICD-10-PCS; 2019-05-18)
PROC: 0PSJ04Z Reposition Left Radius with Internal Fixation Device, Open Approach (ICD-10-PCS; 2019-05-18)
PROC: 0PSL04Z Reposition Left Ulna with Internal Fixation Device, Open Approach (ICD-10-PCS; 2019-05-18)
PROC: 0W9B30Z Drainage of Left Pleural Cavity with Drainage Device, Percutaneous Approach (ICD-10-PCS; 2019-05-21)
PROC: 0B113F4 Bypass Trachea to Cutaneous with Tracheostomy Device, Percutaneous Approach (ICD-10-PCS; 2019-05-22)
PROC: 06H03DZ Insertion of Intraluminal Device into Inferior Vena Cava, Percutaneous Approach (ICD-10-PCS; principal; 2019-05-23)
PROC: 0DH63UZ Insertion of Feeding Device into Stomach, Percutaneous Approach (ICD-10-PCS; 2019-05-26)
PROC: 0B9B8ZZ Drainage of Left Lower Lobe Bronchus, Via Natural or Artificial Opening Endoscopic (ICD-10-PCS; 2019-05-28)
PROC: 0B948ZZ Drainage of Right Upper Lobe Bronchus, Via Natural or Artificial Opening Endoscopic (ICD-10-PCS; 2019-05-28)
PROC: 0B988ZZ Drainage of Left Upper Lobe Bronchus, Via Natural or Artificial Opening Endoscopic (ICD-10-PCS; 2019-05-28)
PROC: 0B968ZZ Drainage of Right Lower Lobe Bronchus, Via Natural or Artificial Opening Endoscopic (ICD-10-PCS; 2019-05-28)
PROC: 0BCB8ZZ Extirpation of Matter from Left Lower Lobe Bronchus, Via Natural or Artificial Opening Endoscopic (ICD-10-PCS; 2019-06-02)
PROC: 0BC88ZZ Extirpation of Matter from Left Upper Lobe Bronchus, Via Natural or Artificial Opening Endoscopic (ICD-10-PCS; 2019-06-02)
PROC: 009600Z Drainage of Cerebral Ventricle with Drainage Device, Open Approach (ICD-10-PCS; 2019-06-12)
PROC: 009600Z Drainage of Cerebral Ventricle with Drainage Device, Open Approach (ICD-10-PCS; 2019-06-17)
PROC: 00P Central Nervous System and Cranial Nerves, Removal (ICD-10-PCS; 2019-06-17)
PROC: 0NR00JZ Replacement of Skull with Synthetic Substitute, Open Approach (ICD-10-PCS; 2019-06-20)
PROC: 00160J6 Bypass Cerebral Ventricle to Peritoneal Cavity with Synthetic Substitute, Open Approach (ICD-10-PCS; 2019-06-20)
DX: S06.6X9A Traumatic subarachnoid hemorrhage with loss of consciousness of unspecified duration, initial encounter (principal); S82.261 Displaced segmental fracture of shaft of right tibia; G93.6 Cerebral edema; T79.4XXA Traumatic shock, initial encounter; J96.00 Acute respiratory failure, unspecified whether with hypoxia or hypercapnia; J14 Pneumonia due to Hemophilus influenzae; S27.2XXA Traumatic hemopneumothorax, initial encounter; S52.592A Other fractures of lower end of left radius, initial encounter for closed fracture; S52.612A Displaced fracture of left ulna styloid process, initial encounter for closed fracture; S82.262A Displaced segmental fracture of shaft of left tibia, initial encounter for closed fracture; S52.502A Unspecified fracture of the lower end of left radius, initial encounter for closed fracture; S52.202A Unspecified fracture of shaft of left ulna, initial encounter for closed fracture; S22.42XA Multiple fractures of ribs, left side, initial encounter for closed fracture; S32.591A Other specified fracture of right pubis, initial encounter for closed fracture; S27.322A Contusion of lung, bilateral, initial encounter; D62 Acute posthemorrhagic anemia; E87.2 Acidosis; E87.0 Hyperosmolality and hypernatremia; E23.2 Diabetes insipidus; J90 Pleural effusion, not elsewhere classified; G91.9 Hydrocephalus, unspecified; B37.0 Candidal stomatitis; E87.1 Hypo-osmolality and hyponatremia; E87.3 Alkalosis; G96.0 Cerebrospinal fluid leak; R40.2312 Coma scale, best motor response, none, at arrival to emergency department; R40.2112 Coma scale, eyes open, never, at arrival to emergency department; R40.2212 Coma scale, best verbal response, none, at arrival to emergency department; S02.0XXB Fracture of vault of skull, initial encounter for open fracture; T79.6XXA Traumatic ischemia of muscle, initial encounter; F10.129 Alcohol abuse with intoxication, unspecified; Y90.7 Blood alcohol level of 200-239 mg/100 ml; S06.5X9A Traumatic subdural hemorrhage with loss of consciousness of unspecified duration, initial encounter; S06.1X9A Traumatic cerebral edema with loss of consciousness of unspecified duration, initial encounter; E83.39 Other disorders of phosphorus metabolism; T47.3X5A Adverse effect of saline and osmotic laxatives, initial encounter; R50.9 Fever, unspecified; E87.6 Hypokalemia; D47.3 Essential (hemorrhagic) thrombocythemia; H10.89 Other conjunctivitis; I10 Essential (primary) hypertension; R33.9 Retention of urine, unspecified; R73.9 Hyperglycemia, unspecified; B09 Unspecified viral infection characterized by skin and mucous membrane lesions
CPT/HCPCS: 31500; 36415; 36416; 36430; 37191; 51702; 70450; 70498; 70551; 71045; 71260; 72141; 72170; 74018; 74177; 76000; 76942; 80048; 80053; 80202; 80306; 80307; 81003; 81015; 82533; 82550; 82805; 82945; 83605; 83690; 83735; 83880; 83930; 84100; 84157; 85007; 85025; 85027; 85610; 85730; 86850; 86900; 86901; 87040; 87070; 87077; 87086; 87186; 87205; 89051; 89220; 90715; 93970; 94002; 94003; 94640; 96361; 96374; C1713; C1769; C1880; G0390; J0360; J0690; J0692; J0696; J1100; J1170; J1644; J1815; J1940; J1953; J1956; J2001; J2250; J2270; J2370; J2405; J2543; J2597; J2704; J3010; J3370; J3475; J3480; J3490; J7050; J7070; J7620; L1930; L4386; P9016; P9045; Q9967; S0020; S0028

== ENCOUNTER 2019-09-11 13:56 | Emergency (ER) | payer MEDICAID ==
[2019-09-11 15:24] LABS: Bilirubin Negative (Negative); Blood, Urine 2+ (Negative); Clarity Clear (Clear); Glucose, Urine (Dipstick) Normal (Negative); Leukocyte 500 Leu/uL (Negative); Nitrite Negative (Negative); Protein, Urine (Dipstick) 10 mg/dL (Neg-Trace); Squamous Epithelial 0-3 HPF (0-3); Urobilinogen Normal mg/dL (Less than 2); WBC/HPF Greater than 50 HPF (0-3)
[2019-09-11 15:34] LABS: Bacteria/HPF 1+ HPF (None Seen)
[2019-09-11 15:44] LABS: #Eosinphils 0.1 thou/uL (0.0-0.7); #Lymphocytes 1.5 thou/uL (1.20-3.40); #Monocytes 0.8 thou/uL (0.11-0.59); #Neutrophils 7.8 thou/uL (1.40-6.50); %Basophils 0.2 % (0.0-1.0); %Eosinophils 1.1 % (0.0-10.0); %Lymphocytes 14.3 % (21.0-51.0); %Monocytes 7.5 % (0.0-10.0); %Neutrophils 76.9 % (42.0-75.0); Hemoglobin 14.8 g/dL (14.0-18.0); Mean Corpuscular HGB CONC 34.5 g/dL (32.0-36.0); Mean Corpuscular Volume 89.6 fL (78.0-98.0); Mean Platelet Volume 7.3 fL (7.4-10.4); Platelet Count 344 thou/uL (130-400); RBC Distribution Width 12.6 % (11.5-14.5); Red Blood Cell (RBC) Count 4.77 mill/uL (4.70-6.10); White Blood Cell (WBC) Count 10.1 thou/uL (4.8-10.8)
[2019-09-11 15:50] LABS: PTT 32.4 sec (22.9-36.1); Prothrombin Time 12.7 sec (12.0-14.7)
[2019-09-11 16:05] LABS: ALT (SGPT) 48 U/L (8-55); AST (SGOT) 21 U/L (5-34); Alkaline Phosphatase 110 U/L (40-110); Anion Gap 13 mmol/L (10-20); BUN (Urea Nitrogen) 13 mg/dL (8.9-20.6); Bilirubin, Total 0.3 mg/dL (0.2-1.2); Calc. Creatinine Clearance 0 mL/min (70-130); Calcium 9.7 mg/dL (7.8-10.44); Carbon Dioxide 29 mmol/L (22-29); Chloride 103 mmol/L (98-107); Estimated GFR-MDRD Greater than 90; Globulin 3.4 g/dL (2.4-3.5); Glucose 113 mg/dL (70-105); Potassium 3.8 mmol/L (3.5-5.1); Protein, Total 7.4 g/dL (6.0-8.3); Sodium 141 mmol/L (136-145)
--- NOTE | 2019-09-11 16:20 | RAD ---
PORTABLE CHEST: 09/11/19 HISTORY: Tachycardia. COMPARISON: 06/03/19 FINDINGS/IMPRESSION: Cardiomegaly again noted. Numerous old left sided rib fractures. No infiltrate or vascular congestion . No acute process apparent. POS: AGW
== END 2019-09-11 17:08 | disposition home or self-care (01) ==
LOC: ERS 13:56
DX: N39.0 Urinary tract infection, site not specified (principal); Z79.899 Other long term (current) drug therapy
CPT/HCPCS: 36415; 71045; 80053; 81003; 81015; 82274; 85025; 85610; 85730; 87086; 93005; 96365

== ENCOUNTER 2019-12-31 19:18 | Emergency (ER) | payer MEDICAID, SELFPAY ==
[2019-12-31 19:47] LABS: #Basophils 0.1 thou/uL (0.0-0.2); #Eosinphils 0.3 thou/uL (0.0-0.7); #Lymphocytes 3.7 thou/uL (1.20-3.40); #Monocytes 0.8 thou/uL (0.11-0.59); #Neutrophils 4.3 thou/uL (1.40-6.50); %Eosinophils 3.3 % (0.0-10.0); %Lymphocytes 40.3 % (21.0-51.0); %Monocytes 8.6 % (0.0-10.0); %Neutrophils 46.9 % (42.0-75.0); Hemoglobin 15.2 g/dL (14.0-18.0); Mean Corpuscular Hemoglobin 31.1 pg (27.0-31.0); Mean Corpuscular Volume 91.5 fL (78.0-98.0); Mean Platelet Volume 6.8 fL (7.4-10.4); Platelet Count 383 thou/uL (130-400); RBC Distribution Width 11.9 % (11.5-14.5); White Blood Cell (WBC) Count 9.1 thou/uL (4.8-10.8)
[2019-12-31 20:07] LABS: ALT (SGPT) 19 U/L (8-55); AST (SGOT) 12 U/L (5-34); Albumin 4.2 g/dL (3.5-5.0); Alkaline Phosphatase 94 U/L (40-110); Anion Gap 18 mmol/L (10-20); BUN (Urea Nitrogen) 5 mg/dL (8.9-20.6); Bilirubin, Total 0.3 mg/dL (0.2-1.2); Calc. Creatinine Clearance 0 mL/min (70-130); Calcium 9.7 mg/dL (7.8-10.44); Carbon Dioxide 21 mmol/L (22-29); Chloride 106 mmol/L (98-107); Estimated GFR-MDRD Greater than 90; Globulin 3.3 g/dL (2.4-3.5); Glucose 121 mg/dL (70-105); Potassium 3.5 mmol/L (3.5-5.1); Protein, Total 7.5 g/dL (6.0-8.3); Sodium 141 mmol/L (136-145)
--- NOTE | 2019-12-31 21:10 | CT ---
EXAM: HEAD CT WITHOUT CONTRAST: 12/31/19 COMPARISON: 06/20/19. HISTORY: Shaking and pain. Seizure. FINDINGS: There is redemonstration of postsurgical change involving the right calvarium. There is hypoattenuati on, extra-axial in location near the right vertex. There is a second area of abnormal attenuation whi ch appears to be extradural, underneath the calvarium. This area of abnormal attenuation measures 5.0 x 1.5 cm. Findings may represent a remote epidural hematoma. There is mass effect upon the underlyin g dura with thickening of the dura. There is redemonstration of encephalomalacia and gliosis involvin g the right cerebrum. The more hypodense focus may represent a resolving epidural hematoma, measuring 5.9 x 1.1 cm. There is no significant mediastinal shift. Redemonstration of a ventriculoperitoneal shunt catheter via the left frontal approach. Previously noted extra-axial collection on the left frontal and tempor al convexity has decreased in size. Minimal residual subarachnoid blood is present. Right maxillary sinus, anterior ethmoid, and frontal sinus opacification. Redemonstration of an anter ior right temporal bone fracture with partial opacification of the right temporal bone. IMPRESSION: Redemonstration of postsurgical and posttraumatic changes. No acute intracranial process. As a conser vative measure, further evaluation with brain MRI can be performed. POS: PPP
--- NOTE | 2019-12-31 21:30 | RAD ---
SHUNTOGRAM: 12/31/19 HISTORY: Altered mental status. FINDINGS/IMPRESSION: Radiographs of the skull, cervical spine, chest, abdomen and pelvis were obtained. There is a left sided ventriculoperitoneal shunt tube which traverses the left side of the head, neck , chest, and upper abdomen and curves to the right making C-loop and re-entering the left side of th e abdomen with tip directed superiorly in the left lower abdomen. The shunt tubing is intact. An IVC filter is present. A PEG tube is present. There are postop changes in the skull. The heart size is n ormal. No lobar consolidation, pneumothoraces, or pleural effusions are seen. The bowel gas pattern i s unremarkable. POS: OFF
[2019-12-31 21:36] LABS: Bilirubin Negative (Negative); Blood, Urine Negative (Negative); Clarity Clear (Clear); Glucose, Urine (Dipstick) Normal (Negative); Ketone, Urine Negative (Negative); Leukocyte Negative Leu/uL (Negative); Nitrite Negative (Negative); Protein, Urine (Dipstick) Negative (Neg-Trace); Specific Gravity, Urine 1.004 (1.002-1.036); Urobilinogen Normal mg/dL (Less than 2)
== END 2019-12-31 22:12 | disposition home or self-care (01) ==
LOC: ERS 19:18
DX: R56.9 Unspecified convulsions (principal); Z87.891 Personal history of nicotine dependence; Z79.899 Other long term (current) drug therapy
CPT/HCPCS: 51701; 70450; 75809; 80053; 81003; 84146; 85025; 96361; 96365; 96374; J1953

== ENCOUNTER 2020-05-12 11:46 | Inpatient (IN) | payer MEDICAID, SELFPAY ==
[2020-05-12] MEDS ORDERED: levETIRAcetam in NS 100 ML IVPB SCH (12:30)
[2020-05-12] MEDS ORDERED: Fentanyl 100 MCG/2 ML VIAL ONE (12:37)
[2020-05-12] MEDS ORDERED: levETIRAcetam in NS 100 ML ONE (12:37)
[2020-05-12] MEDS ORDERED: Ondansetron PF 4 MG/2 ML Vial ONE (12:37)
[2020-05-12 13:00] LABS: Hemoglobin 18.2 g/dL (14.0-18.0); Mean Corpuscular HGB CONC 32.1 g/dL (32.0-36.0); Mean Corpuscular Hemoglobin 29.1 pg (27.0-31.0); Mean Corpuscular Volume 90.9 fL (78.0-98.0); Mean Platelet Volume 7.3 fL (7.4-10.4); Platelet Count 391 thou/uL (130-400); RBC Distribution Width 12.3 % (11.5-14.5); Red Blood Cell (RBC) Count 6.23 mill/uL (4.70-6.10); White Blood Cell (WBC) Count 17.6 thou/uL (4.8-10.8)
[2020-05-12 13:17] LABS: ALT (SGPT) 51 U/L (8-55); AST (SGOT) 63 U/L (5-34); Albumin 4.7 g/dL (3.5-5.0); Alkaline Phosphatase 119 U/L (40-110); Anion Gap 25 mmol/L (10-20); BUN (Urea Nitrogen) 10 mg/dL (8.4-25.7); Bilirubin, Total 1.2 mg/dL (0.2-1.2); CK (CPK) 143 U/L (30-200); Calc. Creatinine Clearance 0 mL/min (70-130); Carbon Dioxide 23 mmol/L (22-29); Chloride 100 mmol/L (98-107); Globulin 4.3 g/dL (2.4-3.5); Glucose 166 mg/dL (70-105); Lipase 6 U/L (8-78); Potassium 4.7 mmol/L (3.5-5.1); Sodium 143 mmol/L (136-145)
[2020-05-12 13:19] LABS: Band 16 % (5-11); Lymphocytes 2 % (21-51); MDiff Complete? YES; Monocytes 5 % (0-10); Neutrophil 77 % (42-75); Platelet Morphology Comment Appears Adequate; RBC Morphology Normal
[2020-05-12 13:25] LABS: CKMB 1.4 ng/mL (0-6.6)
[2020-05-12] MEDS ORDERED: Iopamidol-370 76% 500 ML 1 ML ONE (14:23)
[2020-05-12] MEDS ORDERED: Iopamidol 370 76% 50 ML VIAL FS ONE (14:23)
--- NOTE | 2020-05-12 14:50 | CT ---
CT Brain WO Con History: Altered mental status Comparison: CT brain December 2019 Findings: Bone and soft tissue flap over the right hemicranium is similar. Extensive encephalomalacia of the right frontal, temporal, and parietal white matter. Left frontal shunt catheter tip projects over the foramen of Reardon. Ventricular size is similar to the comparison exam. There is dilatation of the right temporal horn. N o new midline shift or mass effect. No new hemorrhage. No new loss of toney-white matter differentiation. Extensive right frontal and anterior ethmoid mucosal thickening with small volume left mid ethmoid mu cosal thickening. Impression: Chronic findings. No acute intracranial abnormality.
--- NOTE | 2020-05-12 14:58 | CT ---
CT Abdomen Pelvis W Con History: Abdominal pain Comparison: CT examination May 17, 2019 Findings: Mild atelectasis in the lung bases. Multiple old rib fractures. Shunt catheter tip the left lower hemipelvis without kinking. Marked distention of the stomach with i n situ gastrostomy tube. Abnormal thickening near the pylorus/first portion duodenum with adjacent fat inflammation. Abnormal enhancement of the common bile duct. Gallbladder is mildly distended. Celiac trunk and superior mesenteric arteries are patent. Inflammation which is centered around the g astric pylorus/first portion duodenum does cause some extrinsic narrowing of the main portal vein. Aortoiliac contour is nonaneurysmal. Trace free fluid within the pelvis. No colonic dilatation. The a ppendix is visualized and is normal. In situ IVC filter below the renal veins in good position. Mild osseous demineralization. Impression: 1. Abnormal thickening and inflammation around the gastric pylorus and first portion duodenum concern ing for peptic ulcer disease and incomplete although likely deep ulcer. Contained focal perforation is also possibility. Upper endoscopy recommended. The inflammation caused by this extends into the ad jacent fat of the [place] hepatis with cholangitis and extrinsic mass effect upon the main portal vein. Fat plane is felt to be relatively maintained around the pancreas and underlying pancreatitis i s felt less likely. 2. Distention of the stomach with in situ gastrostomy tube. Gastric distention can be sequelae of und erlying inflammation at the gastric pylorus/first portion duodenum.
[2020-05-12 15:11] LABS: Bilirubin Negative (Negative); Blood, Urine Negative (Negative); Clarity Clear (Clear); Glucose, Urine (Dipstick) Normal (Negative); Ketone, Urine Negative (Negative); Leukocyte 25 Leu/uL (Negative); Nitrite Negative (Negative); Protein, Urine (Dipstick) 30 mg/dL (Neg-Trace); RBC/HPF 0-3 HPF (0-3); Specific Gravity, Urine 1.021 (1.002-1.036); Squamous Epithelial None Seen HPF (0-3); Urobilinogen Normal mg/dL (Less than 2)
[2020-05-12 15:13] LABS: Bacteria/HPF 1+ HPF (None Seen)
[2020-05-12] MEDS ORDERED: Piperacillin/Tazobactam 4.5 GM VIAL ONE (16:11)
[2020-05-12] MEDS ORDERED: Sodium Chloride 0.9% 1,000 ML IV SCH ×2 (20:15→23:30)
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
[2020-05-12] MEDS: Acetaminophen 325 MG TAB PO PRN (22:53)
[2020-05-12 22:56] LABS: Troponin I 0.029 ng/mL (< 0.028)
[2020-05-12] MEDS ORDERED: Piperacillin/Tazobactam 3.375 GM in Sodium Chloride 0.9% 100 ML IVPB SCH (23:59)
[2020-05-13] MEDS ORDERED: levETIRAcetam 500 mg/5 ml Oral Solution PO SCH
[2020-05-13 00:54] LABS: Troponin I 0.045 ng/mL (< 0.028)
[2020-05-13] MEDS ORDERED: Morphine 4 MG/ML VIAL SLOW IVP SCH (03:30)
[2020-05-13] MEDS: Acetaminophen 325 MG TAB PO PRN (04:14)
[2020-05-13] MEDS: Ondansetron PF 4 MG/2 ML Vial IVP PRN ×2 (04:16→21:04)
[2020-05-13 05:03] LABS: Anion Gap 15 mmol/L (10-20); BUN (Urea Nitrogen) 9 mg/dL (8.4-25.7); Calc. Creatinine Clearance 116 mL/min (70-130); Calcium 8.6 mg/dL (7.8-10.44); Carbon Dioxide 21 mmol/L (22-29); Chloride 110 mmol/L (98-107); Glucose 121 mg/dL (70-105); Potassium 3.7 mmol/L (3.5-5.1); Sodium 142 mmol/L (136-145)
[2020-05-13 05:53] LABS: Band 16 % (5-11); Hemoglobin 15.3 g/dL (14.0-18.0); Lymphocytes 6 % (21-51); MDiff Complete? YES; Mean Corpuscular HGB CONC 33.3 g/dL (32.0-36.0); Mean Corpuscular Hemoglobin 30.7 pg (27.0-31.0); Mean Corpuscular Volume 92.1 fL (78.0-98.0); Monocytes 5 % (0-10); Neutrophil 73 % (42-75); Platelet Count 300 thou/uL (130-400); Platelet Morphology Comment Appears Adequate; RBC Distribution Width 12.4 % (11.5-14.5); Red Blood Cell (RBC) Count 4.99 mill/uL (4.70-6.10); White Blood Cell (WBC) Count 21.5 thou/uL (4.8-10.8)
[2020-05-13] MEDS ORDERED: Bisacodyl 10 MG SUPP PR PRN (08:29)
[2020-05-13] MEDS ORDERED: hydrALAZINE 20 MG/ML VIAL SLOW IVP PRN (08:29)
[2020-05-13] MEDS ORDERED: Metoclopramide HCl 10 MG/2 ML VIAL IVP PRN (08:29)
[2020-05-13] MEDS ORDERED: Sodium Chloride 0.65% Nasal 44 ML BOT EA NARE PRN (08:29)
[2020-05-13] MEDS ORDERED: Cepastat Lozenges 1 LOZ PO PRN (08:29)
[2020-05-13] MEDS ORDERED: Acetaminophen 650 MG Suppository PR PRN (08:29)
[2020-05-13] MEDS ORDERED: D5 1/2 NS w/20 mEq KCL 1,000 ML IV SCH (08:30)
[2020-05-13] MEDS ORDERED: Metoprolol Tartrate 5 MG/5 ML VIAL IVP PRN (08:31)
[2020-05-13 08:32] LABS: SARS-CoV-2 PCR by NAA Not Detected (NotDetected)
[2020-05-13] MEDS ORDERED: FLU VACC QS2020-21(6MOS UP)/PF 60 MCG/0.5 ML SYRINGE IM ONE (09:00)
[2020-05-13] MEDS: levETIRAcetam in NS 500 MG in Premix Bag 1 BAG IVPB SCH ×2 (11:00→22:00)
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
[2020-05-13] MEDS ORDERED: Amino Acids 4.25 %/Dextrose 5% 1,000 ML IV SCH (11:45)
--- NOTE | 2020-05-13 12:22 | PDOC.HOSPP ---
- Subjective Encounter Date: 05/13/20 Encounter Time: 08:45 Subjective: Patient seen and examined bedside today, patient's is present bedside today, updated plan of care while using culture link phone #[phone] - Objective Vital Signs & Weight: Vital Signs (12 hours) Temp Pulse Resp BP Pulse Ox 05/13/20 10:45 90 18 119/76 100 05/13/20 07:21 98.2 F 97 20 140/82 100 Weight Weight 138 lb 12.8 oz Result Diagrams: 05/13/20 05:01 05/13/20 04:42 Radiology Reviewed by me: Yes EKG Reviewed by me: Yes Hospitalist ROS - Review of Systems ROS unobtainable: due to mental status - Medication Medications: Active Medications Generic Name Dose Route Start Last Admin Trade Name Freq PRN Reason Stop Dose Admin Acetaminophen 650 mg 05/12/20 20:08 05/13/20 04:14 Acetaminophen 325 Mg Tab PO 650 mg Q4H PRN Administration Headache/Fever/Mild Pain (1-3) Levetiracetam 500 mg/ Device 100 mls @ 200 mls/hr 05/13/20 09:00 05/13/20 11:00 IVPB 100 mls BID JASWINDER Administration Ondansetron HCl 4 mg 05/12/20 20:08 05/13/20 04:16 Ondansetron Pf 4 Mg/2 Ml Vial IVP 4 mg Q6H PRN Administration Nausea/Vomiting Sodium Chloride 10 ml 05/12/20 21:00 05/13/20 11:01 Flush - Normal Saline 10 Ml Syringe IVF 10 ml Q12HR JASWINDER Administration Hospitalist Exam Vitals: Vital Signs (12 hours) Temp Pulse Resp BP Pulse Ox 05/13/20 10:45 90 18 119/76 100 05/13/20 07:21 98.2 F 97 20 140/82 100 Weight Weight 138 lb 12.8 oz General Appearance: NAD, ill appearing Eye: PERRL, anicteric sclera ENT: no oropharyngeal lesions, dry oral mucosa ENT - other findings: Patient has previous surgery on his head Neck: supple, symmetric, no JVD Heart: RRR, no murmur, no gallops, no rubs Respiratory: no wheezes, no rales, no ronchi Gastrointestinal: soft, non-distended, normal bowel sounds Gastrointestinal - other findings: PEG tube in place Extremities: no cyanosis, no clubbing Skin: normal turgor, no lesions Musculoskeletal: normal tone, generalized weakness Psychiatric: not oriented, somnolent Hosp A/P (1) Duodenal ulcer with perforation and obstruction Code(s): K26.5 - CHRONIC OR UNSPECIFIED DUODENAL ULCER WITH PERFORATION Status: Acute (2) Sepsis Code(s): A41.9 - SEPSIS, UNSPECIFIED ORGANISM Status: Acute Qualifiers: Sepsis type: sepsis due to unspecified organism Sepsis acute organ dysfunction status: without acute organ dysfunction Qualified Code(s): A41.9 - Sepsis, unspecified organism (3) Lactic acidosis Code(s): E87.2 - ACIDOSIS Status: Acute (4) Elevated troponin Code(s): R77.8 - OTHER SPECIFIED ABNORMALITIES OF PLASMA PROTEINS Status: Acute (5) UTI (urinary tract infection) Status: Acute Qualifiers: Urinary tract infection type: acute cystitis Hematuria presence: without hematuria Qualified Code(s): N30.00 - Acute cystitis without hematuria (6) Personal history of traumatic brain injury Code(s): Z87.820 - PERSONAL HISTORY OF TRAUMATIC BRAIN INJURY Status: Chronic - Plan old records reviewed/req, plan discussed w/ family, continue antibiotics, DVT proph w/SCDs General surgery recommendation appreciated, at this point plan to continue conservative therapy with n.p.o., continue Zosyn, continue IV fluid, continue IV Protonix, medication reviewed and continue for symptomatic and supportive care, all questions of patient's answered to her, with her using language line, prognosis guarded, will continue to monitor while in hospital,
[2020-05-13] MEDS: Morphine 2 MG/ML VIAL SLOW IVP PRN ×2 (14:14→21:02)
[2020-05-13] MEDS: Piperacillin/Tazobactam 3.375 GM in Sodium Chloride 0.9% 100 ML IVPB SCH ×2 (14:18→21:01)
[2020-05-13] MEDS ORDERED: STERILE WATER IV SCH (14:30)
[2020-05-13] MEDS ORDERED: [UNRECOGNIZED DRUG - OTHER] IV SCH (14:30)
[2020-05-13] MEDS ORDERED: DEXTROSE 70% IV SCH (14:30)
[2020-05-13] MEDS ORDERED: WATER IV SCH (14:30)
[2020-05-13] MEDS: WATER IV SCH (17:21)
[2020-05-13] MEDS: [UNRECOGNIZED DRUG - OTHER] IV SCH (17:21)
[2020-05-13] MEDS: DEXTROSE 70% IV SCH (17:21)
[2020-05-13] MEDS: Pantoprazole 80 MG, Admixture Fee 1 EACH in Sodium Chloride 0.9% 100 ML IVPB SCH (21:01)
[2020-05-14] MEDS: Piperacillin/Tazobactam 3.375 GM in Sodium Chloride 0.9% 100 ML IVPB SCH ×4 (02:15→20:58)
[2020-05-14] MEDS: DEXTROSE 70% IV SCH (05:21)
[2020-05-14] MEDS: [UNRECOGNIZED DRUG - OTHER] IV SCH (05:21)
[2020-05-14] MEDS: WATER IV SCH ×2 (05:21→18:02)
[2020-05-14 07:43] LABS: Hemoglobin 14.8 g/dL (14.0-18.0); Mean Corpuscular Hemoglobin 30.4 pg (27.0-31.0); Mean Corpuscular Volume 92.1 fL (78.0-98.0); Mean Platelet Volume 6.6 fL (7.4-10.4); Platelet Count 277 thou/uL (130-400); RBC Distribution Width 12.4 % (11.5-14.5); Red Blood Cell (RBC) Count 4.87 mill/uL (4.70-6.10); White Blood Cell (WBC) Count 18.1 thou/uL (4.8-10.8)
[2020-05-14 07:50] LABS: Lactic Acid 1.4 mmol/L (0.5-2.2)
[2020-05-14 07:59] LABS: Anion Gap 14 mmol/L (10-20); BUN (Urea Nitrogen) 9 mg/dL (8.4-25.7); Calc. Creatinine Clearance 126 mL/min (70-130); Calcium 8.8 mg/dL (7.8-10.44); Carbon Dioxide 18 mmol/L (22-29); Chloride 110 mmol/L (98-107); Glucose 115 mg/dL (70-105); Magnesium 1.8 mg/dL (1.6-2.6); Potassium 3.5 mmol/L (3.5-5.1); Sodium 138 mmol/L (136-145)
[2020-05-14 08:03] LABS: ALT (SGPT) 41 U/L (8-55); AST (SGOT) 24 U/L (5-34); Albumin 3.1 g/dL (3.5-5.0); Alkaline Phosphatase 75 U/L (40-110); Bilirubin, Direct 0.4 mg/dL (0.1-0.3); Bilirubin, Total 0.7 mg/dL (0.2-1.2); Phosphorus Less than 1.0 mg/dL (2.3-4.7); Protein, Total 6.2 g/dL (6.0-8.3)
[2020-05-14 08:33] LABS: #Lymphocytes 1.8 thou/uL (1.20-3.40); #Monocytes 1.1 thou/uL (0.11-0.59); #Neutrophils 15.1 thou/uL (1.40-6.50); %Basophils 0.1 % (0.0-1.0); %Eosinophils 0.2 % (0.0-10.0); %Lymphocytes 10.2 % (21.0-51.0); %Monocytes 6.1 % (0.0-10.0); %Neutrophils 83.4 % (42.0-75.0); Band 12 % (5-11); Lymphocytes 8 % (21-51); MDiff Complete? YES; Monocytes 4 % (0-10); Neutrophil 75 % (42-75); RBC Morphology Normal; Reactive Lymphocytes 1 % (0-10)
[2020-05-14] MEDS: levETIRAcetam in NS 500 MG in Premix Bag 1 BAG IVPB SCH ×2 (08:46→20:58)
[2020-05-14] MEDS ORDERED: Potassium Phosphate 15 MMOL in Sodium Chloride 0.9% 250 ML 250 ML IVPB SCH (09:15)
[2020-05-14] MEDS ORDERED: Sodium Phosphate 15 MMOL in Sodium Chloride 0.9% 250 ML 250 ML IVPB SCH (09:30)
[2020-05-14] MEDS ORDERED: Potassium Phosphate 30 MMOL in Sodium Chloride 0.9% 500 ML IVPB SCH (10:00)
[2020-05-14] MEDS ORDERED: Magnesium 2 GM/50 ML 2 GM in Premix Bag 1 BAG IVPB SCH (10:00)
[2020-05-14] MEDS: Potassium Phosphate 30 MMOL in Sodium Chloride 0.9% 250 ML 250 ML IVPB SCH ×2 (12:17→20:59)
--- NOTE | 2020-05-14 12:31 | PDOC.HOSPP ---
- Subjective Encounter Date: 05/14/20 Encounter Time: 09:15 Subjective: Patient seen and examined bedside today, no overnight event, - Objective Vital Signs & Weight: Vital Signs (12 hours) Temp Pulse Resp BP Pulse Ox 05/14/20 10:00 98.9 F 91 18 128/81 99 05/14/20 08:00 99.0 F 86 15 124/74 100 05/14/20 06:00 76 18 119/74 100 05/14/20 03:38 98.9 F 106 H 20 133/85 99 05/14/20 02:00 83 15 128/82 100 Weight Admit Weight 138 lb 12.8 oz Weight 138 lb 12.8 oz I&O: 05/13/20 05/14/20 05/15/20 06:59 06:59 06:59 Intake Total 112.6 1124.9 Output Total 600 Balance -487.4 1124.9 Result Diagrams: 05/14/20 07:28 05/14/20 07:28 EKG Reviewed by me: Yes Hospitalist ROS - Review of Systems ENT: denies: ear pain, ear discharge, nose pain, nose discharge, nose congestion, mouth pain, mouth swelling, throat pain, throat swelling, other Respiratory: denies: cough, dry, shortness of breath, hemoptysis, SOB with excertion, pleuritic pain, sputum, wheezing, other Cardiovascular: denies: chest pain, palpitations, orthopnea, paroxysmal noc. dyspnea, edema, light headedness, other Gastrointestinal: denies: nausea, vomiting, abdominal pain, diarrhea, constipation, melena, hematochezia, other Genitourinary: denies: dysuria, frequency, incontinence, hematuria, retention, other - Medication Medications: Active Medications Generic Name Dose Route Start Last Admin Trade Name Freq PRN Reason Stop Dose Admin Acetaminophen 650 mg 05/12/20 20:08 05/13/20 04:14 Acetaminophen 325 Mg Tab PO 650 mg Q4H PRN Administration Headache/Fever/Mild Pain (1-3) Pantoprazole Sodium 80 mg/ 100 mls @ 10 mls/hr 05/12/20 16:15 05/13/20 21:01 Miscellaneous Medication 1 IVPB 100 mls each/ Sodium Chloride INF JASWINDER Administration Levetiracetam 500 mg/ Device 100 mls @ 200 mls/hr 05/13/20 09:00 05/14/20 08:46 IVPB 100 mls BID JASIWNDER Administration Piperacillin Sod/Tazobactam 100 mls @ 200 mls/hr 05/13/20 14:00 05/14/20 08:48 Sod 3.375 gm/ Sodium Chloride IVPB 100 mls 0200,0800,1400,2000 JASWINDER Administration Miscellaneous Medication 1 1,000 mls @ 100 mls/hr 05/13/20 14:30 05/14/20 05:21 each/ Dextrose/Water/ Sterile IV 1,000 mls Water/ Amino Acids INF JASWINDER Administration Potassium Phosphate 30 mmol/ 260 mls @ 42.466 mls/hr 05/14/20 11:00 05/14/20 12:17 Sodium Chloride IVPB 05/15/20 17:08 260 mls NOW JASWINDER Administration Morphine Sulfate 2 mg 05/13/20 08:30 05/13/20 21:02 Morphine 2 Mg/Ml Vial SLOW IVP 2 mg Q4H PRN Administration Moderate Pain (4-6) Ondansetron HCl 4 mg 05/12/20 20:08 05/13/20 21:04 Ondansetron Pf 4 Mg/2 Ml Vial IVP 4 mg Q6H PRN Administration Nausea/Vomiting Sodium Chloride 10 ml 05/12/20 21:00 05/14/20 08:48 Flush - Normal Saline 10 Ml Syringe IVF 10 ml Q12HR JASWINDER Administration Hospitalist Exam Vitals: Vital Signs (12 hours) Temp Pulse Resp BP Pulse Ox 05/14/20 10:00 98.9 F 91 18 128/81 99 05/14/20 08:00 99.0 F 86 15 124/74 100 05/14/20 06:00 76 18 119/74 100 05/14/20 03:38 98.9 F 106 H 20 133/85 99 05/14/20 02:00 83 15 128/82 100 Weight Admit Weight 138 lb 12.8 oz Weight 138 lb 12.8 oz General Appearance: NAD, awake alert Eye: PERRL, anicteric sclera ENT: normocephalic atraumatic, no oropharyngeal lesions Neck: supple, symmetric, no JVD, no thyromegaly Heart: RRR, no murmur, no gallops, no rubs Respiratory: no wheezes, no rales, no ronchi Gastrointestinal: soft, normal bowel sounds Gastrointestinal - other findings: G-tube in place Extremities: no cyanosis, no clubbing Skin: normal turgor, no lesions Neurological: no new deficit Musculoskeletal: normal tone, normal strength Psychiatric: normal affect, normal behavior Hosp A/P (1) Duodenal ulcer with perforation and obstruction Code(s): K26.5 - CHRONIC OR UNSPECIFIED DUODENAL ULCER WITH PERFORATION Status: Acute (2) Sepsis Code(s): A41.9 - SEPSIS, UNSPECIFIED ORGANISM Status: Acute Qualifiers: Sepsis type: sepsis due to unspecified organism Sepsis acute organ dysfunction status: without acute organ dysfunction Qualified Code(s): A41.9 - Sepsis, unspecified organism (3) Hypophosphatemia Code(s): E83.39 - OTHER DISORDERS OF PHOSPHORUS METABOLISM Status: Acute (4) Lactic acidosis Code(s): E87.2 - ACIDOSIS Status: Acute (5) Elevated troponin Code(s): R77.8 - OTHER SPECIFIED ABNORMALITIES OF PLASMA PROTEINS Status: Acute (6) UTI (urinary tract infection) Status: Acute Qualifiers: Urinary tract infection type: acute cystitis Hematuria presence: without hematuria Qualified Code(s): N30.00 - Acute cystitis without hematuria (7) Personal history of traumatic brain injury Code(s): Z87.820 - PERSONAL HISTORY OF TRAUMATIC BRAIN INJURY Status: Chronic - Plan old records reviewed/req, plan discussed w/ family, continue antibiotics Continue Zosyn Continue n.p.o. Continue IV fluid We will replace sodium phosphate and potassium phosphate one-time dose and repeat labs tomorrow General surgery following Diet advancement and care will defer to general surgery,
[2020-05-14] MEDS: ADMIXTURE FEE IV SCH (18:02)
[2020-05-14] MEDS: [UNRECOGNIZED DRUG - OTHER] IV SCH (18:02)
[2020-05-14] MEDS: DEXTROSE IV SCH (18:02)
[2020-05-14] MEDS: Morphine 2 MG/ML VIAL SLOW IVP PRN (20:55)
[2020-05-15] MEDS: Piperacillin/Tazobactam 3.375 GM in Sodium Chloride 0.9% 100 ML IVPB SCH ×4 (02:32→22:19)
[2020-05-15 05:19] LABS: #Lymphocytes 1.6 thou/uL (1.20-3.40); #Monocytes 0.7 thou/uL (0.11-0.59); #Neutrophils 9.6 thou/uL (1.40-6.50); %Basophils 0.1 % (0.0-1.0); %Eosinophils 0.3 % (0.0-10.0); %Lymphocytes 12.9 % (21.0-51.0); %Monocytes 6.2 % (0.0-10.0); %Neutrophils 80.5 % (42.0-75.0); Hemoglobin 13.2 g/dL (14.0-18.0); Mean Corpuscular HGB CONC 32.4 g/dL (32.0-36.0); Mean Corpuscular Hemoglobin 30.1 pg (27.0-31.0); Mean Corpuscular Volume 92.7 fL (78.0-98.0); Mean Platelet Volume 7.8 fL (7.4-10.4); Platelet Count 215 thou/uL (130-400); RBC Distribution Width 12.3 % (11.5-14.5); Red Blood Cell (RBC) Count 4.39 mill/uL (4.70-6.10)
[2020-05-15 05:20] LABS: Anion Gap 11 mmol/L (10-20); BUN (Urea Nitrogen) 10 mg/dL (8.4-25.7); Calc. Creatinine Clearance 150 mL/min (70-130); Calcium 8.2 mg/dL (7.8-10.44); Carbon Dioxide 22 mmol/L (22-29); Chloride 104 mmol/L (98-107); Glucose 100 mg/dL (70-105); Magnesium 1.9 mg/dL (1.6-2.6); Phosphorus 1.9 mg/dL (2.3-4.7); Potassium 3.2 mmol/L (3.5-5.1); Sodium 134 mmol/L (136-145)
[2020-05-15] MEDS ORDERED: Electrolyte Replacement Protocol 1 EACH FS SCH (05:30)
[2020-05-15] MEDS: DEXTROSE IV SCH (05:55)
[2020-05-15] MEDS: [UNRECOGNIZED DRUG - OTHER] IV SCH (05:55)
[2020-05-15] MEDS: WATER IV SCH (05:55)
[2020-05-15] MEDS: ADMIXTURE FEE IV SCH (05:55)
[2020-05-15] MEDS: Morphine 2 MG/ML VIAL SLOW IVP PRN ×3 (06:00→22:09)
--- NOTE | 2020-05-15 06:12 | CON ---
DATE OF CONSULTATION: 05/14/2020 SUBJECTIVE: A 50-year-old male with past medical history of severe TBI. CT shows peptic ulcer. At bedside today, the patient's pain has improved since yesterday. G-tube remains to gravity. Output overnight was 600 mL output. The patient is on a PPI drip and IV antibiotics for peptic ulcer. Aggressive repletion of electrolytes. The patient remains n.p.o. with sips of water. OBJECTIVE: VITAL SIGNS: Temperature 98.9, pulse 91, respiratory rate 18, O2 saturation 99 on room air, blood pressure 128/81. GENERAL: The patient lying flat in bed. No acute events. Comfortable. LUNGS: Equal breath sounds bilaterally. No accessory muscle use. ABDOMEN: G-tube to gravity with 600 mL of gastric fluid emptied at bedside today. ASSESSMENT AND PLAN: A 50-year-old male with past medical history of severe TBI, CT positive for peptic ulcer. Continue PPI IV drip with antibiotics, G-tube should remain to gravity. White blood cell count downtrending 21.5 to 18.1. Electrolytes; potassium 3.5, magnesium 1.8, phosphorus less than 1. At this time, there is no surgical intervention needed, we will continue to monitor the patient closely. Dr. Monte was at bedside and saw the patient and agrees with the plan and assessment. -Continue to monitor output of G-tube. -Continue pain regimen. -Repeat electrolytes aggressively. Job ID: [id number] [facility]
[2020-05-15] MEDS ORDERED: Magnesium 2 GM/50 ML 2 GM in Premix Bag 1 BAG IVPB SCH ×2 (06:30→07:15)
[2020-05-15] MEDS: Potassium Chloride 20 MEQ in Premix Bag 1 BAG IVPB SCH ×2 (06:54→09:02)
[2020-05-15] MEDS ORDERED: Potassium Phosphate 30 MMOL in Sodium Chloride 0.9% 250 ML 250 ML IVPB SCH (07:15)
[2020-05-15] MEDS: levETIRAcetam in NS 500 MG in Premix Bag 1 BAG IVPB SCH ×2 (08:57→22:08)
--- NOTE | 2020-05-15 11:34 | PDOC.HOSPP ---
- Subjective Encounter Date: 05/15/20 Encounter Time: 09:30 Subjective: Patient seen and examined bedside today, his is present bedside tachypnea I spoke with the patient and patient's with culture link phone, #[phone] - Objective Vital Signs & Weight: Vital Signs (12 hours) Temp Pulse Resp BP Pulse Ox 05/15/20 07:47 97.4 F L 81 16 128/77 96 05/15/20 06:00 98 20 122/76 95 05/15/20 03:55 98.8 F 88 20 112/73 96 05/15/20 02:00 93 16 133/87 97 05/14/20 23:51 99.1 F 90 16 126/77 97 Weight Admit Weight 138 lb 12.8 oz Weight 138 lb 12.8 oz I&O: 05/14/20 05/15/20 05/16/20 06:59 06:59 06:59 Intake Total 112.6 1638.5 Output Total 600 500 Balance -487.4 1138.5 Result Diagrams: 05/15/20 04:24 05/15/20 04:24 Hospitalist ROS - Review of Systems ENT: denies: ear pain, ear discharge, nose pain, nose discharge, nose congestion, mouth pain, mouth swelling, throat pain, throat swelling, other Respiratory: denies: cough, dry, shortness of breath, hemoptysis, SOB with excertion, pleuritic pain, sputum, wheezing, other Cardiovascular: denies: chest pain, palpitations, orthopnea, paroxysmal noc. dy spnea, edema, light headedness, other Gastrointestinal: denies: nausea, vomiting, abdominal pain, diarrhea, constipation, melena, hematochezia, other Genitourinary: denies: dysuria, frequency, incontinence, hematuria, retention, other Musculoskeletal: denies: neck pain, shoulder pain, arm pain, back pain, hand pain, leg pain, foot pain, other - Medication Medications: Active Medications Generic Name Dose Route Start Last Admin Trade Name Freq PRN Reason Stop Dose Admin Acetaminophen 650 mg 05/12/20 20:08 05/13/20 04:14 Acetaminophen 325 Mg Tab PO 650 mg Q4H PRN Administration Headache/Fever/Mild Pain (1-3) Pantoprazole Sodium 80 mg/ 100 mls @ 10 mls/hr 05/12/20 16:15 05/13/20 21:01 Miscellaneous Medication 1 IVPB 100 mls each/ Sodium Chloride INF JASWINDER Administration Levetiracetam 500 mg/ Device 100 mls @ 200 mls/hr 05/13/20 09:00 05/15/20 08:57 IVPB 100 mls BID JASWINDER Administration Piperacillin Sod/Tazobactam 100 mls @ 200 mls/hr 05/13/20 14:00 05/15/20 08:58 Sod 3.375 gm/ Sodium Chloride IVPB 100 mls 0200,0800,1400,2000 JASWINDER Administration Miscellaneous Medication 1 1,000 mls @ 100 mls/hr 05/14/20 18:00 05/15/20 05:55 each/ Dextrose/Water/ Sterile IV 1,000 mls Water/ Amino Acids INF JASWINDER Administration Potassium Chloride 20 meq/ 100 mls @ 50 mls/hr 05/15/20 08:00 05/15/20 09:02 Device IVPB 05/15/20 11:59 100 mls Q2H JASWINDER Administration Potassium Phosphate 30 mmol/ 260 mls @ 41.7 mls/hr 05/15/20 07:15 05/15/20 09:00 Sodium Chloride IVPB 05/15/20 13:30 260 mls NOW JASWINDER Administration Morphine Sulfate 2 mg 05/13/20 08:30 05/15/20 11:00 Morphine 2 Mg/Ml Vial SLOW IVP 2 mg Q4H PRN Administration Moderate Pain (4-6) Ondansetron HCl 4 mg 05/12/20 20:08 05/13/20 21:04 Ondansetron Pf 4 Mg/2 Ml Vial IVP 4 mg Q6H PRN Administration Nausea/Vomiting Sodium Chloride 10 ml 05/12/20 21:00 05/15/20 08:59 Flush - Normal Saline 10 Ml Syringe IVF 10 ml Q12HR JASWINDER Administration Hospitalist Exam Vitals: Vital Signs (12 hours) Temp Pulse Resp BP Pulse Ox 05/15/20 07:47 97.4 F L 81 16 128/77 96 05/15/20 06:00 98 20 122/76 95 05/15/20 03:55 98.8 F 88 20 112/73 96 05/15/20 02:00 93 16 133/87 97 05/14/20 23:51 99.1 F 90 16 126/77 97 Weight Admit Weight 138 lb 12.8 oz Weight 138 lb 12.8 oz General Appearance: NAD, awake alert Eye: PERRL, anicteric sclera ENT - other findings: Previous surgery on his head Neck: symmetric, no JVD Heart: RRR, no murmur, no gallops, no rubs Respiratory: no wheezes, no rales, no ronchi Gastrointestinal: soft, non-tender, non-distended, normal bowel sounds Gastrointestinal - other findings: G-tube in place Extremities: no cyanosis, no clubbing, no edema Skin: normal turgor, no lesions Neurological: no new deficit Musculoskeletal: normal tone, normal strength Psychiatric: normal affect, normal behavior Hosp A/P (1) Duodenal ulcer with perforation and obstruction Code(s): K26.5 - CHRONIC OR UNSPECIFIED DUODENAL ULCER WITH PERFORATION Status: Acute (2) Sepsis Code(s): A41.9 - SEPSIS, UNSPECIFIED ORGANISM Status: Acute Qualifiers: Sepsis type: sepsis due to unspecified organism Sepsis acute organ dysfunction status: without acute organ dysfunction Qualified Code(s): A41.9 - Sepsis, unspecified organism (3) Hypophosphatemia Code(s): E83.39 - OTHER DISORDERS OF PHOSPHORUS METABOLISM Status: Acute (4) Lactic acidosis Code(s): E87.2 - ACIDOSIS Status: Acute (5) Elevated troponin Code(s): R77.8 - OTHER SPECIFIED ABNORMALITIES OF PLASMA PROTEINS Status: Acute (6) UTI (urinary tract infection) Status: Acute Qualifiers: Urinary tract infection type: acute cystitis Hematuria presence: without hematuria Qualified Code(s): N30.00 - Acute cystitis without hematuria (7) Personal history of traumatic brain injury Code(s): Z87.820 - PERSONAL HISTORY OF TRAUMATIC BRAIN INJURY Status: Chronic - Plan old records reviewed/req, plan discussed w/ family, continue antibiotics, incentive spirometry Continue Zosyn Continue n.p.o. Continue IV fluid Replace electrolytes and repeat labs tomorrow General surgery following, Diet advancement will defer to general surgeon Patient is plan for upper GI series today
[2020-05-15] MEDS ORDERED: MD-Gastroview 120 ML BOT ONE (12:01)
--- NOTE | 2020-05-15 12:01 | PRG ---
DATE OF SERVICE: 05/15/2020 SUBJECTIVE: The patient was seen this morning during rounds. He was lying in bed, resting comfortably. He did not report any pain and on abdominal exam, it appeared to be less tender. Output from the [place] bag has decreased to 500 in the past 24 hours and the output is also whiter. Nursing reports no acute events. OBJECTIVE: VITAL SIGNS: Temperature 97.4, pulse 81, respirations 16, oxygen saturation 96% on room air, and blood pressure 128/77. GENERAL: Well-appearing middle-aged male, lying in bed with no signs of acute distress. PULMONARY: Equal chest rise and fall. No signs of acute respiratory distress. CARDIAC: Regular rate and rhythm. GI: Abdomen is soft, nontender, nondistended. PEG tube was connected to a [place] bag with clear to brown color output in [place]. EXTREMITIES: 2+ pulses in all extremities. Gross motor and sensation intact. No significant swelling noted. NEURO: The patient is asleep, but arousable. LABORATORY FINDINGS: White count 12.0, hemoglobin 13.2, hematocrit 40.7, and platelets 215. Sodium 134, potassium 3.2, chloride 104, bicarb 22, BUN 10, creatinine 0.52, glucose 100, phosphorus 1.9, and magnesium 1.6. DIAGNOSTIC FINDINGS: There are no new diagnostic findings to report. ASSESSMENT: 1. Contained gastric ulcer perforation, improving. 2. Urinary tract infections. 3. Acute hypokalemia and hypophosphatemia. PLAN: Continue n.p.o. with sips of water. Continue PPN and PPI. Trauma has ordered an upper GI study to evaluate for leak of the stomach and duodenum. If upper GI study demonstrates no leak or perforation, we will start the patient back on tube feeds or oral diet, if he is awake and alert enough to take to take it. This patient was discussed with Dr. Monte before this dictation. Job ID: [id number]
--- NOTE | 2020-05-15 15:37 | RAD ---
UPPER GI SINGLE CONTRAST: 05/15/20 HISTORY: Evaluate gastric ulcer, follow-up upper abdominal pain. COMPARISON: Abdomen and pelvic CT scan 05/12/20. FINDINGS: Patient was given oral gastrografin through the percutaneous gastrostomy tube. There is evidence for ventriculoperitoneal shunt tube in place. There is some oral contrast throughout the colon from previ ous CT scan. There was some delayed emptying from the stomach through the pylorus and duodenum with some evidence of some spasm. With more delayed imaging, contrast medial does progress into the duodenum and proxima l small bowel. There does appear to be narrowing and spasm at the level of the duodenal bulb and prox imal duodenum which is poorly seen on this study. No evidence for contrast extravasation. IMPRESSION: Some narrowing and spasm in the region of the duodenal bulb and proximal duodenum with emptying contr ast through the duodenal bulb and C-loop and into the proximal jejunum. No evidence for extravasation or leak. Findings were discussed with Dr. Monte by phone at 1:34 p.m. Code CR POS: MARLINE
[2020-05-15] MEDS: Acetaminophen 325 MG TAB PO PRN (22:08)
[2020-05-15] MEDS: Ondansetron PF 4 MG/2 ML Vial IVP PRN (22:09)
[2020-05-16] MEDS: Piperacillin/Tazobactam 3.375 GM in Sodium Chloride 0.9% 100 ML IVPB SCH ×5 (03:45→23:08)
[2020-05-16] MEDS: Pantoprazole 80 MG, Admixture Fee 1 EACH in Sodium Chloride 0.9% 100 ML IVPB SCH ×2 (04:00→15:40)
[2020-05-16 06:20] LABS: Anion Gap 16 mmol/L (10-20); BUN (Urea Nitrogen) 6 mg/dL (8.4-25.7); Calc. Creatinine Clearance 128 mL/min (70-130); Calcium 8.5 mg/dL (7.8-10.44); Carbon Dioxide 18 mmol/L (22-29); Chloride 117 mmol/L (98-107); Glucose 87 mg/dL (70-105); Magnesium 2.3 mg/dL (1.6-2.6); Phosphorus 2.7 mg/dL (2.3-4.7); Potassium 6.3 mmol/L (3.5-5.1); Sodium 145 mmol/L (136-145)
[2020-05-16] MEDS ORDERED: Insulin Regular 300 UNITS/3 ML VIAL IVP SCH (06:45)
[2020-05-16] MEDS ORDERED: Calcium Gluc 4.6 MEQ/10 ML (100 MG/ML) SLOW IVP SCH (07:15)
[2020-05-16 07:21] LABS: #Eosinphils 0.1 thou/uL (0.0-0.7); #Monocytes 0.9 thou/uL (0.11-0.59); #Neutrophils 11.9 thou/uL (1.40-6.50); %Basophils 0.1 % (0.0-1.0); %Eosinophils 0.8 % (0.0-10.0); %Lymphocytes 13.1 % (21.0-51.0); %Monocytes 6.3 % (0.0-10.0); %Neutrophils 79.8 % (42.0-75.0); Hemoglobin 12.2 g/dL (14.0-18.0); Mean Corpuscular HGB CONC 33.5 g/dL (32.0-36.0); Mean Corpuscular Hemoglobin 30.7 pg (27.0-31.0); Mean Corpuscular Volume 91.6 fL (78.0-98.0); Mean Platelet Volume 7.6 fL (7.4-10.4); Platelet Count 278 thou/uL (130-400); RBC Distribution Width 12.3 % (11.5-14.5); Red Blood Cell (RBC) Count 3.98 mill/uL (4.70-6.10); White Blood Cell (WBC) Count 14.9 thou/uL (4.8-10.8)
[2020-05-16] MEDS ORDERED: Dextrose 50% Abboject 50 ML SYRINGE SLOW IVP SCH (07:30)
[2020-05-16] MEDS: levETIRAcetam in NS 500 MG in Premix Bag 1 BAG IVPB SCH ×2 (08:11→23:08)
--- NOTE | 2020-05-16 10:24 | PDOC.HOSPP ---
- Subjective Encounter Date: 05/16/20 Encounter Time: 09:00 Subjective: Patient seen and examined. No new complaints. No overnight events, patient started on liquid diet, he is tolerating well, he does not have any fever, - Objective Vital Signs & Weight: Vital Signs (12 hours) Temp Pulse Resp BP BP Pulse Ox 05/16/20 08:00 97.6 F 80 18 102/62 97 05/16/20 07:25 97.6 F 80 18 102/62 97 05/16/20 04:18 98.3 F 95 22 H 115/77 95 05/16/20 02:00 65 20 95/62 96 05/15/20 23:59 73 12 103/66 96 05/15/20 22:38 98.3 F 79 15 115/77 Weight Admit Weight 138 lb 12.8 oz Weight 132 lb 12.8 oz I&O: 05/15/20 05/16/20 05/17/20 06:59 06:59 06:59 Intake Total 1638.5 2038.3 Output Total 500 35 Balance 1138.5 2003.3 Result Diagrams: 05/16/20 06:38 05/16/20 05:58 Additional Labs: Accuchecks 05/16/20 08:16 POC Glucose 76 Radiology Reviewed by me: Yes EKG Reviewed by me: Yes Hospitalist ROS - Review of Systems ENT: denies: ear pain, ear discharge, nose pain, nose discharge, nose congestion, mouth pain, mouth swelling, throat pain, throat swelling, other Respiratory: denies: cough, dry, shortness of breath, hemoptysis, SOB with excertion, pleuritic pain, sputum, wheezing, other Cardiovascular: denies: chest pain, palpitations, orthopnea, paroxysmal noc. dyspnea, edema, light headedness, other Gastrointestinal: denies: nausea, vomiting, abdominal pain, diarrhea, constipation, melena, hematochezia, other Genitourinary: denies: dysuria, frequency, incontinence, hematuria, retention, other - Medication Medications: Active Medications Generic Name Dose Route Start Last Admin Trade Name Freq PRN Reason Stop Dose Admin Acetaminophen 650 mg 05/12/20 20:08 05/15/20 22:08 Acetaminophen 325 Mg Tab PO 650 mg Q4H PRN Administration Headache/Fever/Mild Pain (1-3) Pantoprazole Sodium 80 mg/ 100 mls @ 10 mls/hr 05/12/20 16:15 05/16/20 04:00 Miscellaneous Medication 1 IVPB 100 mls each/ Sodium Chloride INF JASWINDER Administration Levetiracetam 500 mg/ Device 100 mls @ 200 mls/hr 05/13/20 09:00 05/16/20 08:11 IVPB 100 mls BID JASWINDER Administration Miscellaneous Medication 1 1,000 mls @ 100 mls/hr 05/14/20 18:00 05/15/20 05:55 each/ Dextrose/Water/ Sterile IV 1,000 mls Water/ Amino Acids INF JASWINDER Administration Piperacillin Sod/Tazobactam 100 mls @ 200 mls/hr 05/16/20 03:00 05/16/20 03:45 Sod 3.375 gm/ Sodium Chloride IVPB 100 mls 0300,0900,1500,2100 JASWINDER Administration Morphine Sulfate 2 mg 05/13/20 08:30 05/15/20 22:09 Morphine 2 Mg/Ml Vial SLOW IVP 2 mg Q4H PRN Administration Moderate Pain (4-6) Ondansetron HCl 4 mg 05/12/20 20:08 05/15/20 22:09 Ondansetron Pf 4 Mg/2 Ml Vial IVP 4 mg Q6H PRN Administration Nausea/Vomiting Sodium Chloride 10 ml 05/12/20 21:00 05/16/20 08:26 Flush - Normal Saline 10 Ml Syringe IVF 10 ml Q12HR JASWINDER Administration Hospitalist Exam Vitals: Vital Signs (12 hours) Temp Pulse Resp BP BP Pulse Ox 05/16/20 08:00 97.6 F 80 18 102/62 97 05/16/20 07:25 97.6 F 80 18 102/62 97 05/16/20 04:18 98.3 F 95 22 H 115/77 95 05/16/20 02:00 65 20 95/62 96 05/15/20 23:59 73 12 103/66 96 05/15/20 22:38 98.3 F 79 15 115/77 Weight Admit Weight 138 lb 12.8 oz Weight 132 lb 12.8 oz General Appearance: NAD, awake alert Eye: PERRL, anicteric sclera ENT: normocephalic atraumatic, no oropharyngeal lesions Neck: supple, symmetric, no JVD Heart: RRR, no murmur, no gallops, no rubs Respiratory: no wheezes, no rales, no ronchi Gastrointestinal: soft, non-tender, non-distended, normal bowel sounds Gastrointestinal - other findings: Patient has G-tube in place, Extremities: no cyanosis, no clubbing Skin: normal turgor, no lesions Neurological: no new deficit Musculoskeletal: generalized weakness Psychiatric: normal affect, normal behavior Hosp A/P (1) Duodenal ulcer with perforation and obstruction Code(s): K26.5 - CHRONIC OR UNSPECIFIED DUODENAL ULCER WITH PERFORATION Status: Acute (2) Sepsis Code(s): A41.9 - SEPSIS, UNSPECIFIED ORGANISM Status: Acute Qualifiers: Sepsis type: sepsis due to unspecified organism Sepsis acute organ dysfunction status: without acute organ dysfunction Qualified Code(s): A41.9 - Sepsis, unspecified organism (3) Hypophosphatemia Code(s): E83.39 - OTHER DISORDERS OF PHOSPHORUS METABOLISM Status: Acute (4) Lactic acidosis Code(s): E87.2 - ACIDOSIS Status: Acute (5) Elevated troponin Code(s): R77.8 - OTHER SPECIFIED ABNORMALITIES OF PLASMA PROTEINS Status: Acute (6) UTI (urinary tract infection) Status: Acute Qualifiers: Urinary tract infection type: acute cystitis Hematuria presence: without hematuria Qualified Code(s): N30.00 - Acute cystitis without hematuria (7) Personal history of traumatic brain injury Code(s): Z87.820 - PERSONAL HISTORY OF TRAUMATIC BRAIN INJURY Status: Chronic (8) Drug-induced hyperkalemia Code(s): E87.5 - HYPERKALEMIA; T50.905A - ADVERSE EFFECT OF UNSP DRUG/MEDS/BIOL SUBST, INIT Status: Acute - Plan old records reviewed/req, plan discussed w/ family, continue antibiotics I spoke with the patient and his by using [employer] phone service and updated about plan of care, Patient is tolerating liquid diet, further advancement of diet will defer to general surgeon Continue Zosyn Today his potassium is high is because of iatrogenic in nature, patient is already treated for hyperkalemia cocktail treatment, We will repeat labs tomorrow We will monitor, Overall patient has clinical improvement.
--- NOTE | 2020-05-16 13:37 | PRG ---
DATE OF SERVICE: 05/16/2020 SUBJECTIVE: The patient was seen this morning during rounds. He was sitting up in bed, awake and alert with no signs of acute distress. He was communicating easily. He reported he had no abdominal pain. Yesterday, he was placed on a clear liquid diet and he tolerated that. He did have a bowel movement yesterday as well. Nursing reports no acute events. OBJECTIVE: VITAL SIGNS: Temperature 98.4, pulse 98, respirations 17, oxygen saturation 97% on room air, blood pressure 126/81. GENERAL: Well-appearing middle-aged male, sitting up in bed with no signs of acute distress. PULMONARY: Equal chest rise and fall. Clear breath sounds bilaterally. No signs of acute respiratory distress. CARDIAC: Regular rate and rhythm. GI: Abdomen is soft, nontender, nondistended. PEG tube in place. EXTREMITIES: 2+ pulses in all extremities. Gross motor and sensation are intact. No significant swelling noted. NEUROLOGIC: GCS is 14 to 15, this is the patient's baseline. LABORATORY FINDINGS: White count 14.9, hemoglobin 12.2, hematocrit 34.6, platelets 278. Sodium 145, potassium 6.5, chloride 117, bicarb 18, BUN 86, creatinine 0.58, glucose 87, phosphorus 2.7, magnesium 2.3. DIAGNOSTIC FINDINGS: Upper GI study completed yesterday demonstrates some narrowing and spasm in the region of the duodenal bulb and proximal duodenum with emptying contrast through the duodenal bulb and C-loop and into the proximal jejunum. No evidence of extravasation or leak. ASSESSMENT: 1. Contained gastric ulcer perforation, resolving. 2. Urinary tract infection. 3. Hyperkalemia. PLAN: The patient was previously on a clear liquid diet. We will advance back to a regular diet. Continue antibiotics and PPI. Continue to monitor for signs of abdominal pain, nausea, or vomiting. If so, please contact trauma team. We will continue to monitor overnight and Dr. Monte to evaluate the patient tomorrow morning. Job ID: [id number]
[2020-05-16 16:00] LABS: Potassium 3.4 mmol/L (3.5-5.1)
[2020-05-16] MEDS: Acetaminophen 325 MG TAB PO PRN (23:09)
--- NOTE | 2020-05-17 12:14 | CON ---
DATE OF CONSULTATION: 05/17/2020 SUBJECTIVE: The patient was seen in morning rounds with at bedside. The patient is upright, eating apple sauce in the bed this morning. The patient's pain is well controlled and tolerating a regular diet. The patient had one bowel movement overnight. OBJECTIVE: VITAL SIGNS: Temperature 98.2, pulse 82, respiratory rate 18, O2 saturation 98%, blood pressure 114/69. GENERAL: The patient is sitting upright in bed eating, no acute distress or pain. CARDIAC: Regular rate and rhythm. RESPIRATORY: No acute distress. Speaking full sentences. No accessory muscle use. ABDOMEN: Soft, nontender. A PEG tube in place. EXTREMITIES: The patient is moving in lower extremities bilaterally. Motor and sensation intact. NEUROLOGIC: GCS 14 to 15. This is the patient's baseline. LABORATORY FINDINGS: No laboratory findings today. DIAGNOSTICS: No diagnostic findings done today. ASSESSMENT: 1. Consult gastric ulcer perforation, resolving. 2. Urinary tract infection. 3. Hypokalemia. PLAN: The patient's pain is well controlled and the patient is tolerating a regular diet. The patient should be transferred from IV PPI to oral PPI today. Continue antibiotics. -Continue Zosyn 05/12- -Discontinue ASA and NSAIDs -Repeat H.Pylori stool antigen after PPI 8 weeks, false negative on PPI -Omeprazole 40mg daily for 6 weeks - Trauma Clinic Follow up with 06/04/19, remove G-tube. Job ID: [id number] MTDD
--- NOTE | 2020-05-17 12:55 | PDOC.HOSPP ---
- Subjective Encounter Date: 05/17/20 Encounter Time: 09:00 Subjective: Patient seen and examined. No new complaints. No overnight events - Objective Vital Signs & Weight: Vital Signs (12 hours) Temp Pulse Resp BP Pulse Ox 05/17/20 08:35 98.2 F 83 18 114/69 98 Weight Admit Weight 138 lb 12.8 oz Weight 132 lb 12.8 oz I&O: 05/16/20 05/17/20 05/18/20 06:59 06:59 06:59 Intake Total 2038.3 Output Total 35 Balance 2003.3 Result Diagrams: 05/16/20 06:38 05/16/20 15:16 Hospitalist ROS - Review of Systems ENT: denies: ear pain, ear discharge, nose pain, nose discharge, nose congest ion, mouth pain, mouth swelling, throat pain, throat swelling, other Respiratory: denies: cough, dry, shortness of breath, hemoptysis, SOB with excertion, pleuritic pain, sputum, wheezing, other Cardiovascular: denies: chest pain, palpitations, orthopnea, paroxysmal noc. dyspnea, edema, light headedness, other Gastrointestinal: denies: nausea, vomiting, abdominal pain, diarrhea, constipation, melena, hematochezia, other Genitourinary: denies: dysuria, frequency, incontinence, hematuria, retention, other Musculoskeletal: denies: neck pain, shoulder pain, arm pain, back pain, hand pain, leg pain, foot pain, other - Medication Medications: Active Medications Generic Name Dose Route Start Last Admin Trade Name Freq PRN Reason Stop Dose Admin Acetaminophen 650 mg 05/12/20 20:08 05/16/20 23:09 Acetaminophen 325 Mg Tab PO 650 mg Q4H PRN Administration Headache/Fever/Mild Pain (1-3) Pantoprazole Sodium 80 mg/ 100 mls @ 10 mls/hr 05/12/20 16:15 05/16/20 15:40 Miscellaneous Medication 1 IVPB 100 mls each/ Sodium Chloride INF JASWINDER Administration Levetiracetam 500 mg/ Device 100 mls @ 200 mls/hr 05/13/20 09:00 05/16/20 23:08 IVPB 100 mls BID JASWINDER Administration Piperacillin Sod/Tazobactam 100 mls @ 200 mls/hr 05/16/20 03:00 05/16/20 23:08 Sod 3.375 gm/ Sodium Chloride IVPB 100 mls 0300,0900,1500,2100 JASWINDER Administration Morphine Sulfate 2 mg 05/13/20 08:30 05/15/20 22:09 Morphine 2 Mg/Ml Vial SLOW IVP 2 mg Q4H PRN Administration Moderate Pain (4-6) Ondansetron HCl 4 mg 05/12/20 20:08 05/15/20 22:09 Ondansetron Pf 4 Mg/2 Ml Vial IVP 4 mg Q6H PRN Administration Nausea/Vomiting Sodium Chloride 10 ml 05/12/20 21:00 05/17/20 09:21 Flush - Normal Saline 10 Ml Syringe IVF 10 ml Q12HR JASWINDER Administration Hospitalist Exam Vitals: Vital Signs (12 hours) Temp Pulse Resp BP Pulse Ox 05/17/20 08:35 98.2 F 83 18 114/69 98 Weight Admit Weight 138 lb 12.8 oz Weight 132 lb 12.8 oz General Appearance: NAD, awake alert Eye: PERRL, anicteric sclera ENT: normocephalic atraumatic, no oropharyngeal lesions Neck: supple, symmetric, no JVD, no thyromegaly Heart: RRR, no murmur, no gallops, no rubs Respiratory: no wheezes, no rales, no ronchi Gastrointestinal: soft, non-tender, non-distended, normal bowel sounds Gastrointestinal - other findings: G tube in place Extremities: no clubbing, no edema Skin: normal turgor, no lesions Neurological: no focal deficits Psychiatric: normal affect, normal behavior Hosp A/P (1) Duodenal ulcer with perforation and obstruction Code(s): K26.5 - CHRONIC OR UNSPECIFIED DUODENAL ULCER WITH PERFORATION Status: Acute (2) Sepsis Code(s): A41.9 - SEPSIS, UNSPECIFIED ORGANISM Status: Acute Qualifiers: Sepsis type: sepsis due to unspecified organism Sepsis acute organ dysfunction status: without acute organ dysfunction Qualified Code(s): A41.9 - Sepsis, unspecified organism (3) Hypophosphatemia Code(s): E83.39 - OTHER DISORDERS OF PHOSPHORUS METABOLISM Status: Acute (4) Lactic acidosis Code(s): E87.2 - ACIDOSIS Status: Acute (5) Elevated troponin Code(s): R77.8 - OTHER SPECIFIED ABNORMALITIES OF PLASMA PROTEINS Status: Acute (6) UTI (urinary tract infection) Status: Acute Qualifiers: Urinary tract infection type: acute cystitis Hematuria presence: without hematuria Qualified Code(s): N30.00 - Acute cystitis without hematuria (7) Personal history of traumatic brain injury Code(s): Z87.820 - PERSONAL HISTORY OF TRAUMATIC BRAIN INJURY Status: Chronic (8) Drug-induced hyperkalemia Code(s): E87.5 - HYPERKALEMIA; T50.905A - ADVERSE EFFECT OF UNSP DRUG/MEDS/BIOL SUBST, INIT Status: Acute - Plan old records reviewed/req, continue antibiotics continue diet advancement as per surgeon Continue Zosyn We will repeat labs tomorrow We will monitor, Overall patient has clinical improvement.
[2020-05-17] MEDS: levETIRAcetam in NS 500 MG in Premix Bag 1 BAG IVPB SCH ×2 (13:41→21:18)
[2020-05-17] MEDS: Piperacillin/Tazobactam 3.375 GM in Sodium Chloride 0.9% 100 ML IVPB SCH ×4 (14:42→21:19)
[2020-05-17] MEDS: Pantoprazole 80 MG, Admixture Fee 1 EACH in Sodium Chloride 0.9% 100 ML IVPB SCH (14:49)
[2020-05-17 17:26] LABS: Mean Corpuscular HGB CONC 33.1 g/dL (32.0-36.0); Mean Corpuscular Hemoglobin 30.6 pg (27.0-31.0); Mean Corpuscular Volume 92.4 fL (78.0-98.0); Mean Platelet Volume 7.4 fL (7.4-10.4); Platelet Count 313 thou/uL (130-400); RBC Distribution Width 12.5 % (11.5-14.5); White Blood Cell (WBC) Count 14.4 thou/uL (4.8-10.8)
[2020-05-17 17:49] LABS: Anion Gap 13 mmol/L (10-20); BUN (Urea Nitrogen) 4 mg/dL (8.4-25.7); Calc. Creatinine Clearance 152 mL/min (70-130); Calcium 8.5 mg/dL (7.8-10.44); Carbon Dioxide 20 mmol/L (22-29); Chloride 111 mmol/L (98-107); Glucose 81 mg/dL (70-105); Magnesium 1.9 mg/dL (1.6-2.6); Phosphorus 2.5 mg/dL (2.3-4.7); Potassium 3.3 mmol/L (3.5-5.1); Sodium 141 mmol/L (136-145)
[2020-05-17 18:48] LABS: Band 24 % (5-11); Lymphocytes 13 % (21-51); MDiff Complete? YES; Monocytes 4 % (0-10); Neutrophil 54 % (42-75); Platelet Morphology Comment Appears Adequate; Polychromasia SLIGHT = 2-3 cells (100X) (0-2/hpf); Reactive Lymphocytes 5 % (0-10)
[2020-05-17] MEDS: Morphine 2 MG/ML VIAL SLOW IVP PRN (21:59)
[2020-05-18] MEDS: Piperacillin/Tazobactam 3.375 GM in Sodium Chloride 0.9% 100 ML IVPB SCH ×4 (04:09→20:44)
[2020-05-18 04:45] LABS: ALT (SGPT) 32 U/L (8-55); AST (SGOT) 17 U/L (5-34); Albumin 3.3 g/dL (3.5-5.0); Alkaline Phosphatase 144 U/L (40-110); Anion Gap 13 mmol/L (10-20); BUN (Urea Nitrogen) 4 mg/dL (8.4-25.7); Bilirubin, Total 0.5 mg/dL (0.2-1.2); CRP (Inflammatory) 30.43 mg/dL (= or < 0.5); Calc. Creatinine Clearance 128 mL/min (70-130); Carbon Dioxide 23 mmol/L (22-29); Chloride 111 mmol/L (98-107); Globulin 3.8 g/dL (2.4-3.5); Glucose 99 mg/dL (70-105); Magnesium 1.8 mg/dL (1.6-2.6); Phosphorus 2.8 mg/dL (2.3-4.7); Potassium 3.4 mmol/L (3.5-5.1); Protein, Total 7.1 g/dL (6.0-8.3); Sodium 144 mmol/L (136-145)
[2020-05-18 05:13] LABS: Band 20 % (5-11); Eosinophils 1 % (0-10); Hemoglobin 12.6 g/dL (14.0-18.0); Lymphocytes 14 % (21-51); MDiff Complete? YES; Mean Corpuscular HGB CONC 33.8 g/dL (32.0-36.0); Mean Corpuscular Hemoglobin 31.1 pg (27.0-31.0); Mean Platelet Volume 6.6 fL (7.4-10.4); Monocytes 3 % (0-10); Neutrophil 62 % (42-75); Platelet Count 383 thou/uL (130-400); RBC Distribution Width 12.6 % (11.5-14.5); Red Blood Cell (RBC) Count 4.06 mill/uL (4.70-6.10); White Blood Cell (WBC) Count 12.7 thou/uL (4.8-10.8)
[2020-05-18] MEDS ORDERED: HYDROcodone/Acetaminophen 5/325 mg Tablet PO PRN (07:25)
[2020-05-18] MEDS ORDERED: Acetaminophen 500 MG TAB PO PRN (07:25)
[2020-05-18] MEDS ORDERED: Senokot S 8.6-50 MG TAB PO PRN (07:25)
[2020-05-18] MEDS ORDERED: Ondansetron ODT 4 MG TAB PO PRN (07:25)
[2020-05-18] MEDS ORDERED: Zolpidem Tartrate 5 MG TAB PO PRN (07:25)
[2020-05-18] MEDS ORDERED: Loperamide HCl 2 MG CAP PO PRN (07:25)
[2020-05-18] MEDS ORDERED: Loratadine 10 MG TAB PO PRN (07:25)
[2020-05-18] MEDS ORDERED: Calcium Carbonate 500 MG ChewTAB PO PRN (07:25)
[2020-05-18] MEDS ORDERED: Potassium Chloride 20 MEQ TAB PO SCH (07:30)
[2020-05-18] MEDS: levETIRAcetam 500 MG TAB PO SCH ×2 (10:06→20:43)
[2020-05-18] MEDS: Pantoprazole 40 MG VIAL IVP SCH ×2 (10:06→20:44)
[2020-05-18] MEDS: GUAIFENESIN SF SOLN 200 MG/10 ML UDCUP PO PRN ×2 (10:28→14:27)
--- NOTE | 2020-05-18 11:13 | PDOC.HOSPP ---
- Subjective Encounter Date: 05/18/20 Encounter Time: 08:40 Subjective: Patient seen and examined. No new complaints. No overnight events - Objective Vital Signs & Weight: Vital Signs (12 hours) Temp Pulse Resp BP Pulse Ox 05/18/20 09:30 99.8 F H 78 18 122/69 98 Weight Admit Weight 138 lb 12.8 oz Weight 132 lb 12.8 oz I&O: 05/17/20 05/18/20 05/19/20 06:59 06:59 06:59 Intake Total 540 Balance 540 Result Diagrams: 05/18/20 04:09 05/18/20 04:09 Hospitalist ROS - Review of Systems Respiratory: denies: cough, dry, shortness of breath, hemoptysis, SOB with excertion, pleuritic pain, sputum, wheezing, other Cardiovascular: denies: chest pain, palpitations, orthopnea, paroxysmal noc. dyspnea, edema, light headedness, other Gastrointestinal: denies: nausea, vomiting, abdominal pain, diarrhea, constipation, melena, hematochezia, other Genitourinary: denies: dysuria, frequency, incontinence, hematuria, retention, other Musculoskeletal: denies: neck pain, shoulder pain, arm pain, back pain, hand pain, leg pain, foot pain, other - Medication Medications: Active Medications Generic Name Dose Route Start Last Admin Trade Name Freq PRN Reason Stop Dose Admin Acetaminophen 650 mg 05/12/20 20:08 05/16/20 23:09 Acetaminophen 325 Mg Tab PO 650 mg Q4H PRN Administration Headache/Fever/Mild Pain (1-3) Guaifenesin 200 mg 05/18/20 07:25 05/18/20 10:28 Guaifenesin Sf Soln 200 Mg/10 Ml Udcup PO 200 mg Q4H PRN Administration Cough Piperacillin Sod/Tazobactam 100 mls @ 200 mls/hr 05/16/20 03:00 05/18/20 10:06 Sod 3.375 gm/ Sodium Chloride IVPB 100 mls 0300,0900,1500,2100 JASWINDER Administration Levetiracetam 500 mg 05/18/20 09:00 05/18/20 10:06 Levetiracetam 500 Mg Tab PO 500 mg BID JASWINDER Administration Morphine Sulfate 2 mg 05/13/20 08:30 05/17/20 21:59 Morphine 2 Mg/Ml Vial SLOW IVP 2 mg Q4H PRN Administration Moderate Pain (4-6) Ondansetron HCl 4 mg 05/12/20 20:08 05/15/20 22:09 Ondansetron Pf 4 Mg/2 Ml Vial IVP 4 mg Q6H PRN Administration Nausea/Vomiting Pantoprazole Sodium 40 mg 05/18/20 09:00 05/18/20 10:06 Pantoprazole 40 Mg Vial IVP 40 mg Q12HR JASWINDER Administration Senna/Docusate Sodium 2 tab 05/18/20 07:25 05/18/20 10:07 Senokot S 8.6-50 Mg Tab PO 2 tab BID PRN Administration Constipation Sodium Chloride 10 ml 05/12/20 21:00 05/18/20 10:05 Flush - Normal Saline 10 Ml Syringe IVF 10 ml Q12HR JASWINDER Administration Hospitalist Exam Vitals: Vital Signs (12 hours) Temp Pulse Resp BP Pulse Ox 05/18/20 09:30 99.8 F H 78 18 122/69 98 Weight Admit Weight 138 lb 12.8 oz Weight 132 lb 12.8 oz General Appearance: NAD, awake alert Eye: PERRL, anicteric sclera ENT: no oropharyngeal lesions, moist mucosa Neck: supple, symmetric, no JVD, no thyromegaly Heart: RRR, no murmur, no gallops, no rubs Respiratory: no wheezes, no rales, no ronchi Gastrointestinal: soft, non-tender, non-distended, normal bowel sounds Gastrointestinal - other findings: G-tube in place Extremities: no cyanosis, no clubbing, no edema Skin: normal turgor, no lesions Neurological: no new deficit Musculoskeletal: normal tone, normal strength Psychiatric: normal affect, normal behavior Hosp A/P (1) Duodenal ulcer with perforation and obstruction Code(s): K26.5 - CHRONIC OR UNSPECIFIED DUODENAL ULCER WITH PERFORATION Status: Acute (2) Sepsis Code(s): A41.9 - SEPSIS, UNSPECIFIED ORGANISM Status: Acute Qualifiers: Sepsis type: sepsis due to unspecified organism Sepsis acute organ dysfunct ion status: without acute organ dysfunction Qualified Code(s): A41.9 - Sepsis, unspecified organism (3) Hypophosphatemia Code(s): E83.39 - OTHER DISORDERS OF PHOSPHORUS METABOLISM Status: Acute (4) Lactic acidosis Code(s): E87.2 - ACIDOSIS Status: Acute (5) Elevated troponin Code(s): R77.8 - OTHER SPECIFIED ABNORMALITIES OF PLASMA PROTEINS Status: Acut e (6) UTI (urinary tract infection) Status: Acute Qualifiers: Urinary tract infection type: acute cystitis Hematuria presence: without hematuria Qualified Code(s): N30.00 - Acute cystitis without hematuria (7) Personal history of traumatic brain injury Code(s): Z87.820 - PERSONAL HISTORY OF TRAUMATIC BRAIN INJURY Status: Chronic (8) Drug-induced hyperkalemia Code(s): E87.5 - HYPERKALEMIA; T50.905A - ADVERSE EFFECT OF UNSP DRUG/MEDS/BIOL SUBST, INIT Status: Acute - Plan old records reviewed/req, plan discussed w/ family, continue antibiotics Patient is tolerating current diet, Discontinue Protonix drip and change to Protonix 40 mg IV twice daily Discontinue telemetry Continue Zosyn We will repeat labs tomorrow Discussed with the patient's bedside
[2020-05-18] MEDS: Acetaminophen 325 MG TAB PO PRN ×2 (13:31→20:43)
[2020-05-18 14:21] VITALS: BMI 22.8
--- NOTE | 2020-05-18 14:53 | PRG ---
DATE OF SERVICE: 05/18/2020 SUBJECTIVE: Mr. Gallego is a 50-year-old man with history of previous brain injury, status post percutaneous endoscopic gastrostomy tube placement. The patient apparently was tolerating oral intake. He developed sudden abdominal pain and intolerance to oral intake associated with peritonitis and pneumoperitoneum found on CT scan of the abdomen and pelvis. A perforated peptic ulcer was suspected. There was a microperforation and it was managed nonoperatively. The patient was started on PPI by continuous infusion and H pylori test was negative. Antibiotic therapy was completed. Abdominal pain resolved, and the patient was started on clear liquid diet. He tolerated this well and diet was subsequently advanced to now a general diet, which the patient is tolerating. He has remained afebrile for the last 48 hours. PHYSICAL EXAMINATION: GENERAL: On examination this morning, the patient is awake and alert. Denies any abdominal pain. VITAL SIGNS: Include blood pressure 122/69, pulse 78, respiratory rate is 18, temperature 99.8 degrees Fahrenheit, oxygen saturation 98% on room air. ABDOMEN: Soft, nontender, and nondistended. He clearly has no peritoneal signs on examination. LABORATORY STUDIES: Today include a CBC with 12,700 white blood cells, this is down from 14,400 yesterday. Hemoglobin and hematocrit remained stable at 12.6 and 37.3 respectively. Platelet count 283,000. Metabolic profile: Sodium 144, potassium 3.4, chloride is 111, bicarb is 23, BUN 4, creatinine 0.58, glucose 99, magnesium 1.8 and phosphorus 2.8. IMPRESSION: Probable microperforation of a peptic ulcer and resolved peritonitis. RECOMMENDATIONS: Continue oral intake as the patient tolerates. The patient will need to remain on proton-pump inhibitor for the rest of his natural life. There is no acute surgical indication for this patient at this time. General Surgery will sign off and be available to re-evaluate the patient on demand. Above findings and recommendation discussed with the patient's at bedside, who indicated understanding of the information provided. I answered her questions. Job ID: [id number]
[2020-05-19] MEDS: Piperacillin/Tazobactam 3.375 GM in Sodium Chloride 0.9% 100 ML IVPB SCH ×4 (05:10→21:36)
[2020-05-19 06:37] LABS: #Eosinphils 0.2 thou/uL (0.0-0.7); #Monocytes 0.6 thou/uL (0.11-0.59); #Neutrophils 6.8 thou/uL (1.40-6.50); %Basophils 0.2 % (0.0-1.0); %Eosinophils 1.9 % (0.0-10.0); %Lymphocytes 21.3 % (21.0-51.0); %Monocytes 6.3 % (0.0-10.0); %Neutrophils 70.4 % (42.0-75.0); Mean Corpuscular HGB CONC 33.9 g/dL (32.0-36.0); Mean Corpuscular Hemoglobin 31.7 pg (27.0-31.0); Mean Corpuscular Volume 93.5 fL (78.0-98.0); Mean Platelet Volume 6.7 fL (7.4-10.4); Platelet Count 375 thou/uL (130-400); RBC Distribution Width 12.5 % (11.5-14.5); Red Blood Cell (RBC) Count 3.47 mill/uL (4.70-6.10); White Blood Cell (WBC) Count 9.6 thou/uL (4.8-10.8)
[2020-05-19 06:53] LABS: Anion Gap 13 mmol/L (10-20); BUN (Urea Nitrogen) Less than 4 mg/dL (8.4-25.7); Calc. Creatinine Clearance 120 mL/min (70-130); Calcium 8.7 mg/dL (7.8-10.44); Carbon Dioxide 23 mmol/L (22-29); Chloride 111 mmol/L (98-107); Glucose 85 mg/dL (70-105); Potassium 3.3 mmol/L (3.5-5.1); Sodium 144 mmol/L (136-145)
[2020-05-19] MEDS: Pantoprazole 40 MG VIAL IVP SCH ×2 (10:44→21:36)
--- NOTE | 2020-05-19 15:24 | EKG ---
Test Reason : Blood Pressure : / mmHG Vent. Rate : 086 BPM Atrial Rate : 086 BPM P-R Int : 130 ms QRS Dur : 078 ms QT Int : 372 ms P-R-T Axes : 015 065 019 degrees QTc Int : 445 ms Normal sinus rhythm Normal ECG When compared with ECG of 12-MAY-2020 11:54, (Unconfirmed) Vent. rate has decreased BY [address] no longer depressed in Lateral leads T wave amplitude has decreased in Anterior leads Nonspecific T wave abnormality no longer evident in Lateral leads Confirmed by JOSE F NAVARRO (2) on 05/19/2020 3:24:27 PM Referred By: Confirmed By:JOSE F NAVARRO
--- NOTE | 2020-05-19 15:25 | EKG ---
Test Reason : Blood Pressure : / mmHG Vent. Rate : 086 BPM Atrial Rate : 086 BPM P-R Int : 130 ms QRS Dur : 078 ms QT Int : 372 ms P-R-T Axes : 015 065 019 degrees QTc Int : 445 ms Normal sinus rhythm Normal ECG When compared with ECG of 12-MAY-2020 11:54, (Unconfirmed) Vent. rate has decreased BY [address] no longer depressed in Lateral leads T wave amplitude has decreased in Anterior leads Nonspecific T wave abnormality no longer evident in Lateral leads Confirmed by JOSE F NAVARRO (2) on 05/19/2020 3:24:45 PM Referred By: Confirmed By:JOSE F NAVARRO
[2020-05-19] MEDS: levETIRAcetam 500 MG TAB PO SCH ×2 (15:30→21:37)
--- NOTE | 2020-05-19 19:39 | PDOC.HOSPP ---
- Subjective Encounter Date: 05/19/20 Subjective: Patient complains of lower abdominal pain 10/09 also complains of cough and sore throat - Objective Vital Signs & Weight: Vital Signs (12 hours) Temp Pulse Resp BP BP Pulse Ox 05/19/20 15:42 97.5 F L 91 127/79 98 05/19/20 11:47 98.1 F 67 18 111/64 100 05/19/20 09:05 98.2 F 73 16 121/65 98 Weight Admit Weight 138 lb 12.8 oz Weight 132 lb 12.8 oz I&O: 05/18/20 05/19/20 05/20/20 06:59 06:59 06:59 Intake Total 540 910 Balance 540 910 Result Diagrams: 05/19/20 05:52 05/19/20 05:52 Hospitalist ROS - Medication Medications: Active Medications Generic Name Dose Route Start Last Admin Trade Name Freq PRN Reason Stop Dose Admin Acetaminophen 650 mg 05/12/20 20:08 05/18/20 20:43 Acetaminophen 325 Mg Tab PO 650 mg Q4H PRN Administration Headache/Fever/Mild Pain (1-3) Guaifenesin 200 mg 05/18/20 07:25 05/18/20 14:27 Guaifenesin Sf Soln 200 Mg/10 Ml Udcup PO 200 mg Q4H PRN Administration Cough Piperacillin Sod/Tazobactam 100 mls @ 200 mls/hr 05/16/20 03:00 05/19/20 15:31 Sod 3.375 gm/ Sodium Chloride IVPB 100 mls 0300,0900,1500,2100 JASWINDER Administration Levetiracetam 500 mg 05/18/20 09:00 05/19/20 15:30 Levetiracetam 500 Mg Tab PO 500 mg BID JASWINDER Administration Morphine Sulfate 2 mg 05/13/20 08:30 05/17/20 21:59 Morphine 2 Mg/Ml Vial SLOW IVP 2 mg Q4H PRN Administration Moderate Pain (4-6) Ondansetron HCl 4 mg 05/12/20 20:08 05/15/20 22:09 Ondansetron Pf 4 Mg/2 Ml Vial IVP 4 mg Q6H PRN Administration Nausea/Vomiting Pantoprazole Sodium 40 mg 05/18/20 09:00 05/19/20 10:44 Pantoprazole 40 Mg Vial IVP 40 mg Q12HR JASWINDER Administration Senna/Docusate Sodium 2 tab 05/18/20 07:25 05/18/20 10:07 Senokot S 8.6-50 Mg Tab PO 2 tab BID PRN Administration Constipation Sodium Chloride 10 ml 05/12/20 21:00 05/19/20 10:56 Flush - Normal Saline 10 Ml Syringe IVF 10 ml Q12HR JASWINDER Administration Hospitalist Exam Vitals: Vital Signs (12 hours) Temp Pulse Resp BP BP Pulse Ox 05/19/20 15:42 97.5 F L 91 127/79 98 05/19/20 11:47 98.1 F 67 18 111/64 100 05/19/20 09:05 98.2 F 73 16 121/65 98 Weight Admit Weight 138 lb 12.8 oz Weight 132 lb 12.8 oz General Appearance: NAD Eye: PERRL, anicteric sclera ENT: normocephalic atraumatic Neck: supple, symmetric, no JVD Heart: RRR, no murmur, no gallops, no rubs Respiratory: CTAB, no wheezes, no rales, no ronchi Gastrointestinal: tender to palpation (When palpating his lower abdominal area) Extremities: no cyanosis, no clubbing Hosp A/P (1) Abdominal pain Code(s): R10.9 - UNSPECIFIED ABDOMINAL PAIN Status: Acute Qualifiers: Abdominal location: epigastric Qualified Code(s): R10.13 - Epigastric pain (2) Sepsis Code(s): A41.9 - SEPSIS, UNSPECIFIED ORGANISM Status: Acute Qualifiers: Sepsis type: sepsis due to unspecified organism Sepsis acute organ dysfunction status: without acute organ dysfunction Qualified Code(s): A41.9 - Sepsis, unspecified organism (3) UTI (urinary tract infection) Status: Acute Qualifiers: Urinary tract infection type: acute cystitis Hematuria presence: without hematuria Qualified Code(s): N30.00 - Acute cystitis without hematuria (4) Personal history of traumatic brain injury Code(s): Z87.820 - PERSONAL HISTORY OF TRAUMATIC BRAIN INJURY Status: Chronic - Plan GI --probable microperforation of a peptic ulcer and resolved peritonitis, surgery signed off on him. Recommendation is for him to be on long-term PPI. Repeat H. pylori stool antigen after PPI for 8 weeks since it can be false negative while patient is on PPI. Currently he is tolerating a general diet Upper GI did not show any gastric extravasation. He continues to have abdominal pain I will touch base with GI/general surgery in the morning He says that his pain is only when drinking water, but not with food. Neuro--- history of brain injury status post PEG tube ID----UTI, on Zosyn. Renal--- hypokalemia, previous to that 3 days ago he was hyperkalemic. We will repeat his electrolytes and continue to monitor. Pulmonary/ENT --we will add Cepacol lozenges for his sore throat, and will do a chest x-ray in the morning.
[2020-05-20] MEDS: Piperacillin/Tazobactam 3.375 GM in Sodium Chloride 0.9% 100 ML IVPB SCH ×4 (02:30→21:09)
[2020-05-20 05:25] LABS: #Eosinphils 0.2 thou/uL (0.0-0.7); #Lymphocytes 2.1 thou/uL (1.20-3.40); #Monocytes 0.5 thou/uL (0.11-0.59); #Neutrophils 5.8 thou/uL (1.40-6.50); %Eosinophils 1.8 % (0.0-10.0); %Lymphocytes 24.8 % (21.0-51.0); %Monocytes 5.9 % (0.0-10.0); %Neutrophils 67.5 % (42.0-75.0); Hemoglobin 10.7 g/dL (14.0-18.0); Mean Corpuscular Hemoglobin 29.1 pg (27.0-31.0); Mean Platelet Volume 6.2 fL (7.4-10.4); Platelet Count 463 thou/uL (130-400); RBC Distribution Width 12.3 % (11.5-14.5); Red Blood Cell (RBC) Count 3.66 mill/uL (4.70-6.10); White Blood Cell (WBC) Count 8.6 thou/uL (4.8-10.8)
[2020-05-20 05:41] LABS: Anion Gap 13 mmol/L (10-20); BUN (Urea Nitrogen) 4 mg/dL (8.4-25.7); Calc. Creatinine Clearance 128 mL/min (70-130); Calcium 8.6 mg/dL (7.8-10.44); Carbon Dioxide 22 mmol/L (22-29); Chloride 109 mmol/L (98-107); Glucose 94 mg/dL (70-105); Potassium 3.2 mmol/L (3.5-5.1); Sodium 141 mmol/L (136-145)
--- NOTE | 2020-05-20 09:47 | RAD ---
PORTABLE CHEST 1 VIEW: Date: 05/20/2020 Time: 0752 hours HISTORY: Cough. FINDINGS/IMPRESSION: Comparison made with exam of 09/11/2019. The heart size is normal. Left-sided [employer] shunt tubing catheter is again seen. No lobar consolidation, pneumothoraces, or pleural effusions are seen. There is mild haziness in the right medial lung base. A developing or early infiltrate/pneumonia cannot be excluded. Old left-sided rib fractures are again seen. POS: [facility]
[2020-05-20] MEDS: Pantoprazole 40 MG VIAL IVP SCH ×2 (10:28→21:09)
[2020-05-20] MEDS: levETIRAcetam 500 MG TAB PO SCH ×2 (10:28→21:07)
[2020-05-20] MEDS ORDERED: Bupivacaine 0.25% HCL 30 ML VIAL ONE (13:14)
[2020-05-20] MEDS ORDERED: EPINEPHrine 1 MG/ML AMP ONE (13:14)
[2020-05-20] MEDS ORDERED: Melatonin 3 MG TAB PO PRN (14:58)
--- NOTE | 2020-05-20 14:58 | PDOC.HOSPP ---
- Subjective Encounter Date: 05/20/20 Subjective: Patient was sound asleep, his is at the bedside and I did communicate with her with the help of the educational interpreter. - Objective Vital Signs & Weight: Vital Signs (12 hours) Temp Pulse Resp BP BP Pulse Ox 05/20/20 13:20 99 F 76 18 97/60 97 05/20/20 09:30 98.9 F 88 16 122/84 96 05/20/20 04:00 98.4 F 71 16 136/89 96 Weight Admit Weight 138 lb 12.8 oz Weight 132 lb 12.8 oz I&O: 05/19/20 05/20/20 05/21/20 06:59 06:59 06:59 Intake Total 910 740 Balance 910 740 Result Diagrams: 05/20/20 05:12 05/20/20 05:12 Hospitalist ROS - Medication Medications: Active Medications Generic Name Dose Route Start Last Admin Trade Name Freq PRN Reason Stop Dose Admin Acetaminophen 650 mg 05/12/20 20:08 05/18/20 20:43 Acetaminophen 325 Mg Tab PO 650 mg Q4H PRN Administration Headache/Fever/Mild Pain (1-3) Guaifenesin 200 mg 05/18/20 07:25 05/18/20 14:27 Guaifenesin Sf Soln 200 Mg/10 Ml Udcup PO 200 mg Q4H PRN Administration Cough Piperacillin Sod/Tazobactam 100 mls @ 200 mls/hr 05/16/20 03:00 05/20/20 10:28 Sod 3.375 gm/ Sodium Chloride IVPB 100 mls 0300,0900,1500,2100 JASWINDER Administration Levetiracetam 500 mg 05/18/20 09:00 05/20/20 10:28 Levetiracetam 500 Mg Tab PO 500 mg BID JASWINDER Administration Morphine Sulfate 2 mg 05/13/20 08:30 05/17/20 21:59 Morphine 2 Mg/Ml Vial SLOW IVP 2 mg Q4H PRN Administration Moderate Pain (4-6) Ondansetron HCl 4 mg 05/12/20 20:08 05/15/20 22:09 Ondansetron Pf 4 Mg/2 Ml Vial IVP 4 mg Q6H PRN Administration Nausea/Vomiting Pantoprazole Sodium 40 mg 05/18/20 09:00 05/20/20 10:28 Pantoprazole 40 Mg Vial IVP 40 mg Q12HR JASWINDER Administration Senna/Docusate Sodium 2 tab 05/18/20 07:25 05/18/20 10:07 Senokot S 8.6-50 Mg Tab PO 2 tab BID PRN Administration Constipation Sodium Chloride 10 ml 05/12/20 21:00 05/20/20 10:29 Flush - Normal Saline 10 Ml Syringe IVF 10 ml Q12HR JASWINDER Administration Hospitalist Exam Vitals: Vital Signs (12 hours) Temp Pulse Resp BP BP Pulse Ox 05/20/20 13:20 99 F 76 18 97/60 97 05/20/20 09:30 98.9 F 88 16 122/84 96 05/20/20 04:00 98.4 F 71 16 136/89 96 Weight Admit Weight 138 lb 12.8 oz Weight 132 lb 12.8 oz General Appearance: NAD Eye: PERRL ENT: normocephalic atraumatic Neck: supple, symmetric Heart: RRR, no murmur Respiratory: CTAB, no wheezes, no rales Gastrointestinal: soft, non-tender, non-distended Hosp A/P (1) Abdominal pain Code(s): R10.9 - UNSPECIFIED ABDOMINAL PAIN Status: Acute Qualifiers: Abdominal location: epigastric Qualified Code(s): R10.13 - Epigastric pain (2) Sepsis Code(s): A41.9 - SEPSIS, UNSPECIFIED ORGANISM Status: Acute Qualifiers: Sepsis type: sepsis due to unspecified organism Sepsis acute organ dysfunction status: without acute organ dysfunction Qualified Code(s): A41.9 - Sepsis, unspecified organism (3) UTI (urinary tract infection) Status: Acute Qualifiers: Urinary tract infection type: acute cystitis Hematuria presence: without hematuria Qualified Code(s): N30.00 - Acute cystitis without hematuria (4) Personal history of traumatic brain injury Code(s): Z87.820 - PERSONAL HISTORY OF TRAUMATIC BRAIN INJURY Status: Chronic - Plan GI --probable microperforation of a peptic ulcer and resolved peritonitis, surgery signed off on him. Recommendation is for him to be on long-term PPI. Repeat H. pylori stool antigen after PPI for 8 weeks since it can be false negative while patient is on PPI. Currently he is tolerating a general diet Upper GI did not show any gastric extravasation. He continues to have abdominal pain I will touch base with GI/general surgery in the morning He says that his pain is only when drinking water, but not with food. Neuro--- history of brain injury status post PEG tube ID----UTI, on Zosyn. Renal--- hypokalemia, previous to that 3 days ago he was hyperkalemic. We will repeat his electrolytes and continue to monitor. Pulmonary/ENT --we will add Cepacol lozenges for his sore throat, and will do a chest x-ray in the morning. Plan for today 05/20 GI - - - yesterday patient was complaining of pain after ingesting water but today he did not report that and he tolerated his diet pretty well as per his w pancho. Pulmonary - - - his throat is not hurting as much, and his chest x-ray did show a resolving/new infiltrate, he is on IV Zosyn, if I plan to discharge him tomorrow I will send him on a course of Augmentin. Renal - - - continues to be hypokalemic I will replace his potassium and check it in a.m. as well as his magnesium. Neurology - - - patient has been having a disrupted sleeping cycle I will start him on melatonin tonight may be that will help him. I did speak with his about that she is in agreement.
[2020-05-20] MEDS ORDERED: Potassium Chloride 20 MEQ TAB PO SCH (15:00)
[2020-05-20] MEDS ORDERED: Sodium Chloride 0.9% 500 ML IV SCH (16:00)
[2020-05-21] MEDS: Piperacillin/Tazobactam 3.375 GM in Sodium Chloride 0.9% 100 ML IVPB SCH ×4 (02:31→21:18)
[2020-05-21 05:25] LABS: #Eosinphils 0.2 thou/uL (0.0-0.7); #Monocytes 0.5 thou/uL (0.11-0.59); #Neutrophils 6.2 thou/uL (1.40-6.50); %Basophils 0.1 % (0.0-1.0); %Eosinophils 2.2 % (0.0-10.0); %Lymphocytes 22.7 % (21.0-51.0); %Monocytes 5.3 % (0.0-10.0); %Neutrophils 69.6 % (42.0-75.0); Hemoglobin 11.6 g/dL (14.0-18.0); Mean Corpuscular HGB CONC 34.1 g/dL (32.0-36.0); Mean Corpuscular Hemoglobin 31.2 pg (27.0-31.0); Mean Corpuscular Volume 91.7 fL (78.0-98.0); Mean Platelet Volume 6.2 fL (7.4-10.4); Platelet Count 457 thou/uL (130-400); RBC Distribution Width 12.3 % (11.5-14.5); White Blood Cell (WBC) Count 8.9 thou/uL (4.8-10.8)
[2020-05-21 05:43] LABS: Anion Gap 13 mmol/L (10-20); BUN (Urea Nitrogen) 4 mg/dL (8.4-25.7); Calc. Creatinine Clearance 118 mL/min (70-130); Calcium 8.8 mg/dL (7.8-10.44); Carbon Dioxide 20 mmol/L (22-29); Chloride 112 mmol/L (98-107); Glucose 89 mg/dL (70-105); Magnesium 1.7 mg/dL (1.6-2.6); Potassium 3.5 mmol/L (3.5-5.1); Sodium 141 mmol/L (136-145)
[2020-05-21] MEDS: levETIRAcetam 500 MG TAB PO SCH ×2 (09:06→21:18)
[2020-05-21] MEDS: Pantoprazole 40 MG VIAL IVP SCH ×2 (09:06→21:18)
[2020-05-21] MEDS: Acetaminophen 325 MG TAB PO PRN (09:06)
[2020-05-21] MEDS: Sodium Chloride 0.9% 1,000 ML IV SCH (18:36)
--- NOTE | 2020-05-21 20:00 | PDOC.HOSPP ---
- Subjective Encounter Date: 05/21/20 Subjective: Continues to be very sleepy but sometimes he is more responsive. - Objective Vital Signs & Weight: Vital Signs (12 hours) Temp Pulse Resp BP BP Pulse Ox 05/21/20 15:21 98.7 F 70 22 H 103/62 98 05/21/20 14:10 69 97/59 L 99 05/21/20 12:00 98.5 F 89 16 99/56 L 99 05/21/20 09:05 99 05/21/20 08:00 98.0 F 56 L 16 110/52 L 99 Weight Admit Weight 138 lb 12.8 oz Weight 132 lb 12.8 oz I&O: 05/20/20 05/21/20 05/22/20 06:59 06:59 06:59 Intake Total 740 1979 Balance 740 1979 Result Diagrams: 05/21/20 05:15 05/21/20 05:15 Hospitalist ROS - Medication Medications: Active Medications Generic Name Dose Route Start Last Admin Trade Name Freq PRN Reason Stop Dose Admin Acetaminophen 650 mg 05/12/20 20:08 05/21/20 09:06 Acetaminophen 325 Mg Tab PO 650 mg Q4H PRN Administration Headache/Fever/Mild Pain (1-3) Guaifenesin 200 mg 05/18/20 07:25 05/18/20 14:27 Guaifenesin Sf Soln 200 Mg/10 Ml Udcup PO 200 mg Q4H PRN Administration Cough Piperacillin Sod/Tazobactam 100 mls @ 200 mls/hr 05/16/20 03:00 05/21/20 16:30 Sod 3.375 gm/ Sodium Chloride IVPB 100 mls 0300,0900,1500,2100 JASWINDER Administration Sodium Chloride 1,000 mls @ 100 mls/hr 05/21/20 18:00 05/21/20 18:36 Normal Saline 0.9% IV 1,000 mls .Q10H JASWINDER Administration Levetiracetam 500 mg 05/18/20 09:00 05/21/20 09:06 Levetiracetam 500 Mg Tab PO 500 mg BID JASWINDER Administration Morphine Sulfate 2 mg 05/13/20 08:30 05/17/20 21:59 Morphine 2 Mg/Ml Vial SLOW IVP 2 mg Q4H PRN Administration Moderate Pain (4-6) Ondansetron HCl 4 mg 05/12/20 20:08 05/15/20 22:09 Ondansetron Pf 4 Mg/2 Ml Vial IVP 4 mg Q6H PRN Administration Nausea/Vomiting Pantoprazole Sodium 40 mg 05/18/20 09:00 05/21/20 09:06 Pantoprazole 40 Mg Vial IVP 40 mg Q12HR JASWINDER Administration Senna/Docusate Sodium 2 tab 05/18/20 07:25 05/18/20 10:07 Senokot S 8.6-50 Mg Tab PO 2 tab BID PRN Administration Constipation Sodium Chloride 10 ml 05/12/20 21:00 05/21/20 09:20 Flush - Normal Saline 10 Ml Syringe IVF 10 ml Q12HR JASWINDER Administration Sodium Chloride 10 ml 05/12/20 12:30 05/21/20 02:31 Flush - Normal Saline 10 Ml Syringe IVF 10 ml PRN PRN Administration Saline Flush Hospitalist Exam Vitals: Vital Signs (12 hours) Temp Pulse Resp BP BP Pulse Ox 05/21/20 15:21 98.7 F 70 22 H 103/62 98 05/21/20 14:10 69 97/59 L 99 05/21/20 12:00 98.5 F 89 16 99/56 L 99 05/21/20 09:05 99 05/21/20 08:00 98.0 F 56 L 16 110/52 L 99 Weight Admit Weight 138 lb 12.8 oz Weight 132 lb 12.8 oz General Appearance: NAD Eye: PERRL ENT: normocephalic atraumatic, no oropharyngeal lesions Neck: supple, symmetric, no JVD Heart: RRR, no murmur, no gallops Respiratory: CTAB, no wheezes, no rales Hosp A/P (1) Abdominal pain Code(s): R10.9 - UNSPECIFIED ABDOMINAL PAIN Status: Acute Qualifiers: Abdominal location: epigastric Qualified Code(s): R10.13 - Epigastric pain (2) Sepsis Code(s): A41.9 - SEPSIS, UNSPECIFIED ORGANISM Status: Acute Qualifiers: Sepsis type: sepsis due to unspecified organism Sepsis acute organ dysfunction status: without acute organ dysfunction Qualified Code(s): A41.9 - Sepsis, unspecified organism (3) UTI (urinary tract infection) Status: Acute Qualifiers: Urinary tract infection type: acute cystitis Hematuria presence: without hematuria Qualified Code(s): N30.00 - Acute cystitis without hematuria (4) Personal history of traumatic brain injury Code(s): Z87.820 - PERSONAL HISTORY OF TRAUMATIC BRAIN INJURY Status: Chronic - Plan GI --probable microperforation of a peptic ulcer and resolved peritonitis, surgery signed off on him. Recommendation is for him to be on long-term PPI. Repeat H. pylori stool antigen after PPI for 8 weeks since it can be false negative while patient is on PPI. Currently he is tolerating a general diet Upper GI did not show any gastric extravasation. He continues to have abdominal pain I will touch base with GI/general surgery in the morning He says that his pain is only when drinking water, but not with food. Neuro--- history of brain injury status post PEG tube ID----UTI, on Zosyn. Renal--- hypokalemia, previous to that 3 days ago he was hyperkalemic. We will repeat his electrolytes and continue to monitor. Pulmonary/ENT --we will add Cepacol lozenges for his sore throat, and will do a chest x-ray in the morning. Plan for today 05/20 GI - - - yesterday patient was complaining of pain after ingesting water but today he did not report that and he tolerated his diet pretty well as per his . Pulmonary - - - his throat is not hurting as much, and his chest x-ray did show a resolving/new infiltrate, he is on IV Zosyn, if I plan to discharge him tomorrow I will send him on a course of Augmentin. Renal - - - continues to be hypokalemic I will replace his potassium and check it in a.m. as well as his magnesium. Neurology - - - patient has been having a disrupted sleeping cycle I will start him on melatonin tonight may be that will help him. I did speak with his about that she is in agreement. Plan for today 05/21 Patient has not been reporting any pain with food ingestion but on the other hand he has been more sleepy than usual although nursing do describe him to be awake at some times. I am awaiting for a UA to be done. Patient has been consistently hypotensive, not sure what the underlying cause of that, I will start him on IV fluids for now, we will recheck his labs in the morning.
[2020-05-22] MEDS: Piperacillin/Tazobactam 3.375 GM in Sodium Chloride 0.9% 100 ML IVPB SCH ×4 (02:16→20:55)
[2020-05-22] MEDS: Sodium Chloride 0.9% 1,000 ML IV SCH (02:16)
[2020-05-22 07:50] LABS: #Basophils 0.1 thou/uL (0.0-0.2); #Eosinphils 0.2 thou/uL (0.0-0.7); #Lymphocytes 1.8 thou/uL (1.20-3.40); #Monocytes 0.4 thou/uL (0.11-0.59); %Eosinophils 2.1 % (0.0-10.0); %Lymphocytes 24.3 % (21.0-51.0); %Monocytes 5.3 % (0.0-10.0); %Neutrophils 67.2 % (42.0-75.0); Hemoglobin 10.5 g/dL (14.0-18.0); Mean Corpuscular HGB CONC 33.6 g/dL (32.0-36.0); Mean Corpuscular Hemoglobin 31.3 pg (27.0-31.0); Mean Corpuscular Volume 93.3 fL (78.0-98.0); Mean Platelet Volume 6.4 fL (7.4-10.4); Platelet Count 441 thou/uL (130-400); RBC Distribution Width 12.3 % (11.5-14.5); Red Blood Cell (RBC) Count 3.35 mill/uL (4.70-6.10); White Blood Cell (WBC) Count 7.5 thou/uL (4.8-10.8)
[2020-05-22 08:01] LABS: Phosphorus 2.6 mg/dL (2.3-4.7)
[2020-05-22 08:05] LABS: Anion Gap 12 mmol/L (10-20); BUN (Urea Nitrogen) 5 mg/dL (8.4-25.7); Calc. Creatinine Clearance 118 mL/min (70-130); Calcium 8.3 mg/dL (7.8-10.44); Carbon Dioxide 22 mmol/L (22-29); Chloride 112 mmol/L (98-107); Glucose 95 mg/dL (70-105); Magnesium 1.6 mg/dL (1.6-2.6); Potassium 3.2 mmol/L (3.5-5.1); Sodium 143 mmol/L (136-145)
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
[2020-05-22] MEDS ORDERED: Polyethylene Glycol 3350 17 GM Packet PO PRN (08:13)
[2020-05-22] MEDS ORDERED: Famotidine 20 MG TAB PER TUBE SCH (09:00)
[2020-05-22] MEDS: levETIRAcetam 500 MG TAB PO SCH ×2 (09:44→20:54)
[2020-05-22] MEDS: Acetaminophen 325 MG TAB PO PRN ×2 (09:44→20:56)
[2020-05-22] MEDS: Pantoprazole 40 MG VIAL IVP SCH ×2 (09:45→20:55)
--- NOTE | 2020-05-22 10:02 | ULT ---
US Venous Doppler Lt Unilat History: Thigh pain Comparison: None. Findings: Real-time grayscale, color and spectral analysis of the left lower extremity venous system was performed. The common femoral, femoral, proximal portions greater saphenous and deep femoral veins as well as the popliteal and posterior tibial veins were interrogated. Normal flow, augmentation and compression. Impression: No deep venous thrombosis.
--- NOTE | 2020-05-22 17:03 | EKG ---
Test Reason : Blood Pressure : / mmHG Vent. Rate : 144 BPM Atrial Rate : 144 BPM P-R Int : 126 ms QRS Dur : 078 ms QT Int : 350 ms P-R-T Axes : 050 093 053 degrees QTc Int : 541 ms Sinus tachycardia Rightward axis Nonspecific ST abnormality Abnormal ECG Confirmed by DIOMEDES LOPEZ DO ([id number]), production editor JAMARI CHENG ([id number]) on 05/22/2020 5:03:14 PM Referred By: Confirmed By:DIOMEDES LOPEZ DO
[2020-05-23] MEDS: Piperacillin/Tazobactam 3.375 GM in Sodium Chloride 0.9% 100 ML IVPB SCH ×3 (02:24→14:58)
[2020-05-23 06:57] LABS: Anion Gap 12 mmol/L (10-20); BUN (Urea Nitrogen) 5 mg/dL (8.4-25.7); Calc. Creatinine Clearance 122 mL/min (70-130); Calcium 8.8 mg/dL (7.8-10.44); Carbon Dioxide 20 mmol/L (22-29); Chloride 112 mmol/L (98-107); Glucose 79 mg/dL (70-105); Potassium 3.3 mmol/L (3.5-5.1); Sodium 141 mmol/L (136-145)
[2020-05-23] MEDS: Polyethylene Glycol 3350 17 GM Packet PO SCH (07:52)
[2020-05-23] MEDS: levETIRAcetam 500 MG TAB PO SCH ×2 (07:53→22:15)
[2020-05-23] MEDS: Pantoprazole 40 MG VIAL IVP SCH ×2 (07:53→22:15)
--- NOTE | 2020-05-23 16:19 | PDOC.HOSPP ---
- Subjective Encounter Date: 05/23/20 (f/u peritonitis) Encounter Time: 16:17 Subjective: Pt is sleepy this afternoon -occasionally will open eyes. states this happens at home sometimes. She reports he was his usual self this morning and after eating has been sleepy. She notes he has more phlegm and coughing over the past few days. Occasionally coughs with taking PO, has not seen speech. He has a hx of peg tube since the tbi, but it hasn't been needed. - Objective Vital Signs & Weight: Vital Signs (12 hours) Temp Pulse Resp BP Pulse Ox 05/23/20 08:00 100 05/23/20 07:00 98.0 F 69 16 110/72 98 Weight Admit Weight 138 lb 12.8 oz Weight 132 lb 12.8 oz I&O: 05/22/20 05/23/20 05/24/20 06:59 06:59 06:59 Intake Total 310 1570 480 Balance 310 1570 480 Result Diagrams: 05/22/20 07:16 05/23/20 06:04 Hospitalist ROS - Medication Medications: Active Medications Generic Name Dose Route Start Last Admin Trade Name Freq PRN Reason Stop Dose Admin Acetaminophen 650 mg 05/12/20 20:08 05/22/20 20:56 Acetaminophen 325 Mg Tab PO 650 mg Q4H PRN Administration Headache/Fever/Mild Pain (1-3) Guaifenesin 200 mg 05/18/20 07:25 05/18/20 14:27 Guaifenesin Sf Soln 200 Mg/10 Ml Udcup PO 200 mg Q4H PRN Administration Cough Levetiracetam 500 mg 05/18/20 09:00 05/23/20 07:53 Levetiracetam 500 Mg Tab PO 500 mg BID JASWINDER Administration Ondansetron HCl 4 mg 05/12/20 20:08 05/15/20 22:09 Ondansetron Pf 4 Mg/2 Ml Vial IVP 4 mg Q6H PRN Administration Nausea/Vomiting Pantoprazole Sodium 40 mg 05/18/20 09:00 05/23/20 07:53 Pantoprazole 40 Mg Vial IVP 40 mg Q12HR JASWINDER Administration Polyethylene Glycol 17 gm 05/23/20 09:00 05/23/20 07:52 Polyethylene Glycol 3350 17 Gm Packet PO 17 gm DAILY JASWINDER Administration Senna/Docusate Sodium 2 tab 05/18/20 07:25 05/18/20 10:07 Senokot S 8.6-50 Mg Tab PO 2 tab BID PRN Administration Constipation Sodium Chloride 10 ml 05/12/20 21:00 05/23/20 07:53 Flush - Normal Saline 10 Ml Syringe IVF 10 ml Q12HR JASWINDER Administration Sodium Chloride 10 ml 05/12/20 12:30 05/21/20 02:31 Flush - Normal Saline 10 Ml Syringe IVF 10 ml PRN PRN Administration Saline Flush Hospitalist Exam Vitals: Vital Signs (12 hours) Temp Pulse Resp BP Pulse Ox 05/23/20 08:00 100 05/23/20 07:00 98.0 F 69 16 110/72 98 Weight Admit Weight 138 lb 12.8 oz Weight 132 lb 12.8 oz General Appearance: NAD General - other findings: opens eyes occasionally and then falls asleep, cachectic appearing Heart: RRR, no murmur Respiratory: no wheezes, no rales, no ronchi Gastrointestinal: soft, non-tender, non-distended, normal bowel sounds Psychiatric - other findings: unable to assess Hosp A/P (1) Duodenal ulcer with perforation and obstruction Code(s): K26.5 - CHRONIC OR UNSPECIFIED DUODENAL ULCER WITH PERFORATION Status: Acute (2) Personal history of traumatic brain injury Code(s): Z87.820 - PERSONAL HISTORY OF TRAUMATIC BRAIN INJURY Status: Chronic (3) Hypokalemia Code(s): E87.6 - HYPOKALEMIA Status: Acute (4) Anemia Code(s): D64.9 - ANEMIA, UNSPECIFIED Status: Chronic Qualifiers: Anemia type: unspecified type Qualified Code(s): D64.9 - Anemia, unspecified (5) Hyperchloremia Code(s): E87.8 - OTH DISORDERS OF ELECTROLYTE AND FLUID BALANCE, NEC Status: Acute (6) UTI (urinary tract infection) Status: Acute Qualifiers: Urinary tract infection type: acute cystitis Hematuria presence: without hematuria Qualified Code(s): N30.00 - Acute cystitis without hematuria - Plan Peritonitis Probable microperforation of a peptic ulcer and resolved peritonitis, surgery signed off on him. Recommendation is for him to be on long-term PPI. Repeat H. pylori stool antigen after PPI for 8 weeks since it can be false negative while patient is on PPI. Currently he is tolerating a general diet Upper GI did not show any gastric extravasation. Pt had mild pain - none by report of his today (05/23). Home meds show miralax - resumed yesterday Reviewed with Pharmacist and pt has received 12 days of zosyn. With a normal WBC count and 12 days of abx, will d/c Increasing cough - check CXR for interval change - speech therapy consult Sleepiness - monitor for change in status History of brain injury status post PEG tube with plan for removal next month - continue keppra UTI on chart, however negative culture x 2 - has been on Zosyn for UTI and peritonitis x 12 days - will d/c abx Renal--- hypokalemia - replace Low bp's - these have normalized and IVF d/c yesterday left thigh pain - negative ultrasound for DVT Anemia - stable PT/OT dvt prophy - scd's gi prophy - on IV protonix code status full reviewed plan of care with patient/, no questions or further needs at end of eval. Addendum 21:31 - Anticipate pt soon ready for discharge. His reports she has been taking care of him for a year and has the support of her children. Potassium was not replaced today - will add electrolyte protocol for tomorrow and repeat BMP in AM.
--- NOTE | 2020-05-23 17:17 | RAD ---
PORTABLE CHEST: History: Persistent cough Comparison: 05-20-2020 FINDINGS: Heart size and mediastinum are within normal limits. Ventriculoperitoneal shunt tube is seen over the left chest. The parenchymal change in the right base is still present. This could represent some sca rring or atelectasis or minimal infiltrate. IMPRESSION: Persistent more linear parenchymal change in the right base, consistent with some atelectasis or scar , less likely infiltrate. POS: OFF
[2020-05-23] MEDS ORDERED: Electrolyte Replacement Protocol 1 EACH FS SCH (21:30)
[2020-05-23] MEDS ORDERED: Electrolyte Replacement Protocol FS PRN (21:45)
[2020-05-23] MEDS ORDERED: Potassium Chloride 20 MEQ TAB PO SCH (21:45)
[2020-05-24 07:02] LABS: Anion Gap 13 mmol/L (10-20); BUN (Urea Nitrogen) 7 mg/dL (8.4-25.7); Calc. Creatinine Clearance 109 mL/min (70-130); Calcium 9.1 mg/dL (7.8-10.44); Carbon Dioxide 24 mmol/L (22-29); Chloride 111 mmol/L (98-107); Glucose 80 mg/dL (70-105); Potassium 3.7 mmol/L (3.5-5.1); Sodium 144 mmol/L (136-145)
[2020-05-24] MEDS: GUAIFENESIN SF SOLN 200 MG/10 ML UDCUP PO PRN ×2 (10:20→21:39)
[2020-05-24] MEDS: levETIRAcetam 500 MG TAB PO SCH ×2 (10:21→21:36)
[2020-05-24] MEDS: Pantoprazole 40 MG VIAL IVP SCH ×2 (10:21→21:36)
[2020-05-24] MEDS: Polyethylene Glycol 3350 17 GM Packet PO SCH (10:22)
[2020-05-24] MEDS: Acetaminophen 325 MG TAB PO PRN ×2 (12:26→18:48)
[2020-05-24] MEDS: D5 1/2 NS w/40 mEq KCL 1,000 ML IV SCH (12:27)
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
--- NOTE | 2020-05-24 14:38 | RAD ---
XR Ba Swallow W/Speech Therap History: Dysphagia, unspecified Comparison: None. Findings: Multiple different consistency was given to the patient via the speech pathologist. Impression: Fluoroscopy for the speech pathologist. Please see their report for details of the exam.
[2020-05-25] MEDS: D5 1/2 NS w/40 mEq KCL 1,000 ML IV SCH (01:53)
[2020-05-25 08:19] VITALS: TEMP 97.6
[2020-05-25] MEDS: levETIRAcetam 500 MG TAB PO SCH (08:41)
[2020-05-25] MEDS: Polyethylene Glycol 3350 17 GM Packet PO SCH (08:41)
[2020-05-25] MEDS: Pantoprazole 40 MG VIAL IVP SCH (08:42)
[2020-05-25 13:14] VITALS: BP 94/58
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
== END 2020-05-25 13:02 | disposition home or self-care (01) | DRG 871 ==
LOC: ERS 11:46 → 2SW 16:08 → 3SE 05-18 23:14 → T4-A 05-22 16:31
PROVIDERS: ADMIT Internal Medicine; ATTEND Internal Medicine
DX: A41.9 Sepsis, unspecified organism (principal); K26.1 Acute duodenal ulcer with perforation; K65.9 Peritonitis, unspecified; N30.00 Acute cystitis without hematuria; G81.94 Hemiplegia, unspecified affecting left nondominant side; K31.1 Adult hypertrophic pyloric stenosis; R65.20 Severe sepsis without septic shock; Z20.822 Contact with and (suspected) exposure to COVID-19; D64.9 Anemia, unspecified; E87.8 Other disorders of electrolyte and fluid balance, not elsewhere classified; E87.6 Hypokalemia; E83.39 Other disorders of phosphorus metabolism; M79.652 Pain in left thigh; E87.5 Hyperkalemia; T50.905A Adverse effect of unspecified drugs, medicaments and biological substances, initial encounter; I95.9 Hypotension, unspecified; Z79.899 Other long term (current) drug therapy; Z87.820 Personal history of traumatic brain injury; Z74.01 Bed confinement status
CPT/HCPCS: 36415; 36416; 51701; 70450; 71045; 74177; 74230; 74240; 80048; 80053; 80076; 81003; 81015; 82550; 82553; 83605; 83690; 83735; 84100; 84484; 85025; 86140; 87040; 87086; 87338; 87635; 93005; 93010; 96365; 96366; 96367; 96375; A4217; C9113; J0171; J1815; J1953; J2001; J2270; J2405; J2543; J3010; J3475; J3480; J3490; J7050; Q9963; Q9967; S0020; U0003; U0005

== ENCOUNTER 2020-07-14 20:28 | Emergency (ER) | payer MEDICAID, SELFPAY ==
[2020-07-14 21:25] LABS: #Eosinphils 0.2 thou/uL (0.0-0.7); #Lymphocytes 1.7 thou/uL (1.20-3.40); #Monocytes 0.5 thou/uL (0.11-0.59); #Neutrophils 3.9 thou/uL (1.40-6.50); %Basophils 0.7 % (0.0-1.0); %Eosinophils 3.7 % (0.0-10.0); %Lymphocytes 26.4 % (21.0-51.0); %Monocytes 8.1 % (0.0-10.0); %Neutrophils 61.1 % (42.0-75.0); Hemoglobin 15.9 g/dL (14.0-18.0); Mean Corpuscular HGB CONC 33.7 g/dL (32.0-36.0); Mean Corpuscular Hemoglobin 30.6 pg (27.0-31.0); Mean Corpuscular Volume 90.8 fL (78.0-98.0); Mean Platelet Volume 6.8 fL (7.4-10.4); Platelet Count 320 thou/uL (130-400); Red Blood Cell (RBC) Count 5.21 mill/uL (4.70-6.10); White Blood Cell (WBC) Count 6.3 thou/uL (4.8-10.8)
[2020-07-14 21:45] LABS: ALT (SGPT) 18 U/L (8-55); AST (SGOT) 14 U/L (5-34); Alkaline Phosphatase 93 U/L (40-110); Anion Gap 15 mmol/L (10-20); BUN (Urea Nitrogen) 10 mg/dL (8.4-25.7); Bilirubin, Total 0.8 mg/dL (0.2-1.2); Calc. Creatinine Clearance 0 mL/min (70-130); Calcium 9.7 mg/dL (7.8-10.44); Carbon Dioxide 21 mmol/L (22-29); Chloride 108 mmol/L (98-107); Globulin 3.5 g/dL (2.4-3.5); Glucose 102 mg/dL (70-105); Potassium 3.4 mmol/L (3.5-5.1); Protein, Total 7.5 g/dL (6.0-8.3); Sodium 141 mmol/L (136-145)
[2020-07-14 22:20] LABS: Acetaminophen Less than 6.0 mcg/mL (10.0-30.0); Alcohol Less than 10 mg/dL (Less than 10); Salicylate Less than 8.0 mg/dL (15.0-30.0)
== END 2020-07-14 22:45 | disposition home or self-care (01) ==
LOC: ERS 20:28
DX: R56.9 Unspecified convulsions (principal); F32.9 Major depressive disorder, single episode, unspecified; Z87.891 Personal history of nicotine dependence; Z79.899 Other long term (current) drug therapy
CPT/HCPCS: 36415; 70450; 80053; 80307; 82550; 85025; 93005

== ENCOUNTER 2020-08-12 20:56 | Emergency (ER) | payer MEDICAID, SELFPAY ==
[2020-08-12] MEDS ORDERED: levETIRAcetam in NS 1,000 MG in Premix Bag 1 BAG IVPB SCH (21:30)
[2020-08-12 22:31] LABS: #Eosinphils 0.2 thou/uL (0.0-0.7); #Lymphocytes 1.7 thou/uL (1.20-3.40); #Monocytes 0.5 thou/uL (0.11-0.59); #Neutrophils 4.3 thou/uL (1.40-6.50); %Basophils 0.3 % (0.0-1.0); %Eosinophils 2.9 % (0.0-10.0); %Lymphocytes 25.8 % (21.0-51.0); %Monocytes 7.5 % (0.0-10.0); %Neutrophils 63.5 % (42.0-75.0); Hemoglobin 15.8 g/dL (14.0-18.0); Mean Corpuscular HGB CONC 33.5 g/dL (32.0-36.0); Mean Corpuscular Hemoglobin 31.1 pg (27.0-31.0); Mean Corpuscular Volume 92.7 fL (78.0-98.0); Platelet Count 327 thou/uL (130-400); Red Blood Cell (RBC) Count 5.07 mill/uL (4.70-6.10); White Blood Cell (WBC) Count 6.7 thou/uL (4.8-10.8)
[2020-08-12 22:46] LABS: ALT (SGPT) 23 U/L (8-55); AST (SGOT) 16 U/L (5-34); Albumin 3.9 g/dL (3.5-5.0); Alkaline Phosphatase 95 U/L (40-110); Anion Gap 14 mmol/L (10-20); BUN (Urea Nitrogen) 14 mg/dL (8.4-25.7); Bilirubin, Total 0.8 mg/dL (0.2-1.2); Calc. Creatinine Clearance 0 mL/min (70-130); Calcium 9.5 mg/dL (7.8-10.44); Carbon Dioxide 22 mmol/L (22-29); Chloride 109 mmol/L (98-107); Globulin 3.7 g/dL (2.4-3.5); Glucose 93 mg/dL (70-105); Potassium 3.8 mmol/L (3.5-5.1); Protein, Total 7.6 g/dL (6.0-8.3); Sodium 141 mmol/L (136-145)
== END 2020-08-12 23:22 | disposition home or self-care (01) ==
LOC: ERS 20:56
DX: R56.9 Unspecified convulsions (principal); R07.9 Chest pain, unspecified; Z87.891 Personal history of nicotine dependence; Z79.899 Other long term (current) drug therapy
CPT/HCPCS: 36415; 71045; 80053; 84484; 85025; 96365; J1953

== ENCOUNTER 2021-07-03 16:52 | Inpatient (IN) | payer MEDICAID, SELFPAY ==
[2021-07-03] MEDS ORDERED: Lorazepam 2 MG/ML VIAL ONE (18:53)
[2021-07-03 19:01] LABS: #Eosinphils 0.2 thou/uL (0.0-0.7); #Lymphocytes 1.4 thou/uL (1.20-3.40); #Monocytes 0.4 thou/uL (0.11-0.59); %Basophils 0.2 % (0.0-1.0); %Eosinophils 2.3 % (0.0-10.0); %Lymphocytes 20.2 % (21.0-51.0); %Monocytes 5.9 % (0.0-10.0); %Neutrophils 71.3 % (42.0-75.0); Hemoglobin 15.3 g/dL (14.0-18.0); Mean Corpuscular HGB CONC 32.2 g/dL (32.0-36.0); Mean Corpuscular Hemoglobin 30.1 pg (27.0-31.0); Mean Corpuscular Volume 93.4 fL (78.0-98.0); Mean Platelet Volume 7.5 fL (7.4-10.4); Platelet Count 258 thou/uL (130-400); RBC Distribution Width 12.3 % (11.5-14.5); Red Blood Cell (RBC) Count 5.07 mill/uL (4.70-6.10)
[2021-07-03 19:26] LABS: ALT (SGPT) 37 U/L (8-55); AST (SGOT) 27 U/L (5-34); Alkaline Phosphatase 93 U/L (40-110); Anion Gap 15 mmol/L (10-20); BUN (Urea Nitrogen) 12 mg/dL (8.4-25.7); Bilirubin, Total 0.6 mg/dL (0.2-1.2); CK (CPK) 89 U/L (30-200); Calc. Creatinine Clearance 0 mL/min (70-130); Calcium 9.3 mg/dL (7.8-10.44); Carbon Dioxide 24 mmol/L (22-29); Chloride 107 mmol/L (98-107); Globulin 3.7 g/dL (2.4-3.5); Glucose 95 mg/dL (70-105); Lipase 8 U/L (8-78); Magnesium 2.1 mg/dL (1.6-2.6); Potassium 3.9 mmol/L (3.5-5.1); Protein, Total 7.7 g/dL (6.0-8.3); Sodium 142 mmol/L (136-145)
[2021-07-03] MEDS ORDERED: Ondansetron PF 4 MG/2 ML Vial IVP PRN (20:11)
[2021-07-03] MEDS ORDERED: levETIRAcetam in NS 100 ML ONE (20:13)
[2021-07-03 23:13] VITALS: BMI 19.5
[2021-07-03] MEDS: Lorazepam 2 MG/ML VIAL SLOW IVP PRN (23:34)
[2021-07-03] MEDS: Famotidine 20 MG TAB PO SCH (23:36)
[2021-07-03] MEDS: Acetaminophen 325 MG TAB PO PRN (23:41)
[2021-07-04] MEDS: Lorazepam 2 MG/ML VIAL SLOW IVP PRN (04:28)
[2021-07-04] MEDS: Acetaminophen 325 MG TAB PO PRN (04:30)
[2021-07-04 04:36] LABS: #Eosinphils 0.2 thou/uL (0.0-0.7); #Lymphocytes 2.4 thou/uL (1.20-3.40); #Monocytes 0.6 thou/uL (0.11-0.59); #Neutrophils 2.9 thou/uL (1.40-6.50); %Basophils 0.5 % (0.0-1.0); %Eosinophils 3.9 % (0.0-10.0); %Lymphocytes 39.5 % (21.0-51.0); %Monocytes 9.8 % (0.0-10.0); %Neutrophils 46.3 % (42.0-75.0); Hemoglobin 14.3 g/dL (14.0-18.0); Mean Corpuscular HGB CONC 32.4 g/dL (32.0-36.0); Mean Corpuscular Hemoglobin 30.3 pg (27.0-31.0); Mean Corpuscular Volume 93.4 fL (78.0-98.0); Mean Platelet Volume 8.1 fL (7.4-10.4); Platelet Count 219 thou/uL (130-400); RBC Distribution Width 12.2 % (11.5-14.5); Red Blood Cell (RBC) Count 4.71 mill/uL (4.70-6.10); White Blood Cell (WBC) Count 6.2 thou/uL (4.8-10.8)
[2021-07-04 04:57] LABS: Anion Gap 14 mmol/L (10-20); BUN (Urea Nitrogen) 10 mg/dL (8.4-25.7); Calc. Creatinine Clearance 115 mL/min (70-130); Calcium 8.8 mg/dL (7.8-10.44); Carbon Dioxide 21 mmol/L (22-29); Chloride 110 mmol/L (98-107); Glucose 69 mg/dL (70-105); Potassium 4.1 mmol/L (3.5-5.1); Sodium 141 mmol/L (136-145)
[2021-07-04] MEDS ORDERED: Dextrose 50% Abboject 50 ML SYRINGE SLOW IVP PRN (06:55)
[2021-07-04] MEDS ORDERED: Dextrose 5% in Water 1,000 ML IV PRN (06:55)
[2021-07-04] MEDS ORDERED: Lorazepam 2 MG/ML VIAL SLOW IVP PRN (06:59)
[2021-07-04] MEDS ORDERED: Enoxaparin Sodium 40 MG/0.4 ML SYRINGE SC SCH (09:00)
[2021-07-04] MEDS ORDERED: Polyethylene Glycol 3350 17 GM Packet PER TUBE SCH (09:00)
[2021-07-04] MEDS: levETIRAcetam in NS 1,500 MG in Premix Bag 1 BAG IVPB SCH ×2 (09:51→21:33)
[2021-07-04] MEDS: Famotidine 20 MG TAB PO SCH ×2 (09:52→20:40)
[2021-07-04] MEDS ORDERED: Lacosamide 50 mg Tablet PO SCH ×4 (12:19→21:00)
[2021-07-04] MEDS ORDERED: Lacosamide 200 MG in Sodium Chloride 0.9% 50 ML IVPB SCH ×2 (12:45→21:00)
[2021-07-04] MEDS ORDERED: levETIRAcetam in NS 1,000 MG in Premix Bag 1 BAG IVPB SCH (13:00)
[2021-07-04 16:01] LABS: SARS-CoV-2 PCR by NAA Not Detected (NotDetected)
[2021-07-04 17:27] VITALS: BP 114/57; TEMP 97.4
[2021-07-04] MEDS ORDERED: Fosphenytoin Sodium 200 MG in Sodium Chloride 0.9% 50 ML IVPB SCH (21:00)
== END 2021-07-04 22:38 | disposition short-term general hospital (02) | DRG 101 ==
LOC: ERS 16:52 → 2NO 20:05 → OBSVTOIN 07-04 09:45 → IMCU/EMU 07-04 17:55
PROVIDERS: ADMIT Internal Medicine; ATTEND Internal Medicine
DX: G40.909 Epilepsy, unspecified, not intractable, without status epilepticus (principal); G81.94 Hemiplegia, unspecified affecting left nondominant side; Z20.822 Contact with and (suspected) exposure to COVID-19; F32.A Depression, unspecified; G93.89 Other specified disorders of brain; R13.10 Dysphagia, unspecified; Z87.11 Personal history of peptic ulcer disease; Z87.820 Personal history of traumatic brain injury; Z98.890 Other specified postprocedural states; Z93.0 Tracheostomy status; Z87.891 Personal history of nicotine dependence; Z79.899 Other long term (current) drug therapy
CPT/HCPCS: 36415; 36416; 70450; 71045; 74019; 80048; 80053; 80177; 82550; 83605; 83690; 83735; 85025; 87804; 93005; 95712; 95819; 95957; 96365; 96375; 96376; C9254; G0378; J1650; J1953; J2060; J7060; Q2009; U0003; U0005

== ENCOUNTER 2021-10-31 23:41 | Emergency (ER) | payer SELFPAY ==
[2021-11-01] MEDS ORDERED: Lorazepam (BATCHED) 2 MG/ML SYR ONE (00:03)
[2021-11-01] MEDS ORDERED: levETIRAcetam 500 MG/5 ML VIAL ONE (00:14)
[2021-11-01 00:48] LABS: Bilirubin Negative (Negative); Blood, Urine Negative (Negative); Clarity Clear (Clear); Glucose, Urine (Dipstick) Normal (Negative); Ketone, Urine 60 mg/dL (Negative); Leukocyte Negative Leu/uL (Negative); Nitrite Negative (Negative); Protein, Urine (Dipstick) Negative (Neg-Trace); Specific Gravity, Urine 1.024 (1.002-1.036); Urobilinogen 3 mg/dL (Less than 2)
[2021-11-01 01:00] LABS: #Lymphocytes 1.2 thou/uL (1.20-3.40); #Monocytes 0.5 thou/uL (0.11-0.59); #Neutrophils 4.6 thou/uL (1.40-6.50); %Basophils 0.6 % (0.0-1.0); %Eosinophils 0.6 % (0.0-10.0); %Lymphocytes 19.5 % (21.0-51.0); %Monocytes 7.3 % (0.0-10.0); Hemoglobin 13.6 g/dL (14.0-18.0); Mean Corpuscular HGB CONC 34.6 g/dL (32.0-36.0); Mean Corpuscular Hemoglobin 32.3 pg (27.0-31.0); Mean Corpuscular Volume 93.5 fL (78.0-98.0); Mean Platelet Volume 7.2 fL (7.4-10.4); Platelet Count 182 thou/uL (130-400); RBC Distribution Width 11.9 % (11.5-14.5); White Blood Cell (WBC) Count 6.4 thou/uL (4.8-10.8)
[2021-11-01 01:15] LABS: Albumin 3.5 g/dL (3.5-5.0); Anion Gap 12 mmol/L (10-20); BUN (Urea Nitrogen) 12 mg/dL (8.4-25.7); Bilirubin, Total 0.9 mg/dL (0.2-1.2); Calc. Creatinine Clearance 0 mL/min (70-130); Calcium 8.5 mg/dL (7.8-10.44); Carbon Dioxide 23 mmol/L (22-29); Chloride 110 mmol/L (98-107); Estimated GFR 114; Glucose 77 mg/dL (70-105); Potassium 3.3 mmol/L (3.5-5.1); Protein, Total 6.5 g/dL (6.0-8.3); Sodium 142 mmol/L (136-145)
[2021-11-01 01:16] LABS: ALT (SGPT) 22 U/L (8-55); AST (SGOT) 17 U/L (5-34); Alkaline Phosphatase 75 U/L (40-110); Lipase 6 U/L (8-78); Magnesium 1.5 mg/dL (1.6-2.6)
[2021-11-01 01:19] LABS: INR-International Normal Ratio 1.1; PTT 33.7 sec (22.9-36.1); Prothrombin Time 14.3 sec (12.0-14.7)
== END 2021-11-01 03:47 | disposition home or self-care (01) ==
LOC: ERS 23:41
DX: G40.909 Epilepsy, unspecified, not intractable, without status epilepticus (principal); Z87.891 Personal history of nicotine dependence
CPT/HCPCS: 36415; 51702; 70450; 80053; 81003; 83690; 83735; 84443; 84484; 85025; 85610; 85730; 87086; 93005; 96365; 96375; J1953; J2060